=== PATIENT | male | born 1970 | race Caucasian/White ===

== ENCOUNTER → 2017-05-14 14:28 | Outpatient (REF) | payer MEDICAID, SELFPAY ==
[2017-05-14 19:01] LABS: Amphetamine/Metha Screen,Urine Negative ng/mL (<1000); Barbiturates Screen,Urine Negative ng/mL (<200); Benzodiazepines Screen,Urine Negative ng/mL (200); Cannabinoid Screen,Urine Negative ng/mL (<50); Cocaine Screen,Urine Negative ng/g (<300); Methadone Screen,Urine Negative ng/mL (<300); Opiate Screen,Urine Negative ng/mL (<300); Phencyclidine Screen,Urine Negative ng/mL (<25)
[2017-05-21 17:12] LABS: Alprazolam Negative (Cutoff=100); Benzodiazepines Positive ng/mL (Cutoff=100); Clonazepam Positive (.); Flurazepam Negative (Cutoff=100); Lorazepam Negative (Cutoff=100); Midazolam Negative (Cutoff=100); Temazepam Negative (Cutoff=100); Triazolam Negative (Cutoff=100)
[2017-05-22 09:26] LABS: Clonazepam Confirm 543 ng/mL (Cutoff=100)
== END ==
LOC: LAB 14:28
PROVIDERS: Visit Provider Physician Assistant
DX: Z79.899 Other long term (current) drug therapy (principal)
CPT/HCPCS: 80305; 80346

== ENCOUNTER → 2017-05-14 15:02 | Outpatient (CLI) | payer MEDICAID, SELFPAY | PROVIDERS: Visit Provider Physician Assistant | DX: Z79.899 Other long term (current) drug therapy (principal); F17.200 Nicotine dependence, unspecified, uncomplicated; J44.9 Chronic obstructive pulmonary disease, unspecified | CPT/HCPCS: 85025 ==

== ENCOUNTER → 2017-05-14 15:02 | Outpatient (CLI) | payer MEDICAID, SELFPAY ==
[2017-05-15 17:55] LABS: Alanine Aminotransferase 35 U/L (12-78); Albumin Level 4.1 gm/dL (3.4-5.0); Albumin/Globulin Ratio 1.3 (1.1-1.8); Alkaline Phosphatase 76 U/L (46-116); Anion Gap 13.4 mEq/L (5-15); Aspartate Amino Transferase 14 U/L (15-37); Bilirubin,Total 0.2 mg/dL (0.2-1.0); Blood Urea Nitrogen 14 mg/dL (7-18); Calcium 9.3 mg/dL (8.5-10.1); Carbon Dioxide 28 mmol/L (21.0-32.0); Chloride 107 mmol/L (98-107); Chol/HDL Ratio 4.4 (1-3.5); Cholesterol 158 mg/dL (140-200); Creatinine,Serum 0.98 mg/dL (0.70-1.30); Estimated Glomerular Filt Rate 82 ml/min (>60); GFR (African American) 100 ML/MIN (>60); Globulin 3.2 gm/dl (1.3-3.2); Glucose 98 mg/dL (74-106); HDL Cholesterol 36 mg/dL (27-67); LDL Cholesterol 83 mg/dL (0-130); Sodium 142 mmol/L (136-145); Thyroid Stimulating Hormone 0.81 uIU/ml (0.358-3.740); Total Protein,Serum 7.3 gm/dL (6.4-8.2); Triglycerides 197 mg/dL (30-200); VLDL Cholesterol 39 mg/dL (0-40)
[2017-05-15 18:34] LABS: Potassium 6.4 mmoL/L (3.5-5.1)
[2017-05-15 23:34] LABS: Basophils # 0.1 K/mm3 (0-0.2); Basophils % 0.7 % (0.1-2.0); Eosinophils # 0.8 K/mm3 (0.0-0.4); Eosinophils % 6.2 % (0.1-12.0); Hematocrit 52.9 % (42.0-52.0); Hemoglobin 16.9 g/dL (14.1-18.0); Lymphocytes # 3.3 K/mm3 (0.7-4.5); Lymphocytes % 27.9 K/mm3 (10-50); Mean Corpuscular HGB Conc 31.9 g/dL (31.8-35.4); Mean Corpuscular Hemoglobin 31.7 pg (27.0-31.2); Mean Corpuscular Volume 99.1 fl (80-94); Monocytes # 1.3 K/mm3 (0.1-1.0); Monocytes % 10.9 % (1.7-9.3); Neutrophils # 6.5 K/mm3 (1.8-7.8); Neutrophils % 54.4 % (37.0-80.0); Platelet Count 330 K/mm3 (142-424); Red Blood Count 5.34 M/mm3 (4.60-6.20)
[2017-05-17 18:26] LABS: Vitamin D 25 Hydroxy 17.2 ng/mL (30.0-100.0)
== END ==
PROVIDERS: Visit Provider Physician Assistant
DX: R06.09 Other forms of dyspnea (principal); J44.9 Chronic obstructive pulmonary disease, unspecified; Z79.899 Other long term (current) drug therapy; F17.200 Nicotine dependence, unspecified, uncomplicated
CPT/HCPCS: 80053; 80061; 82652; 84436; 84443; 85025

== ENCOUNTER → 2017-05-19 12:39 | Outpatient (CLI) | payer MEDICAID, SELFPAY ==
[2017-05-19 13:24] LABS: Potassium 4.1 mmoL/L (3.5-5.1)
== END ==
PROVIDERS: Visit Provider Physician Assistant
DX: E87.5 Hyperkalemia (principal)
CPT/HCPCS: 36415; 84132

== ENCOUNTER → 2017-05-27 09:46 | Outpatient (CLI) | payer MEDICAID, SELFPAY ==
[2017-05-27 11:12] VITALS: PULSE 73; PULSE 80
== END ==
PROVIDERS: Family Provider Emergency Medicine; PCP Physician Assistant; Visit Provider Physician Assistant
DX: R06.09 Other forms of dyspnea (principal); F17.200 Nicotine dependence, unspecified, uncomplicated
CPT/HCPCS: 94060; 94640

== ENCOUNTER 2017-05-28 07:09 | Day surgery (SDC) | payer MEDICAID, SELFPAY ==
[2017-05-28] VITALS (13 sets, daily range): BP systolic 107–127; BP diastolic 55–75; PULSE 64–79; RESP 12–18; TEMP 36.6; O2SAT 93–100; BMI 63.3
--- NOTE | 2017-05-28 | IR_ITS ---
CARDIAC CATHETERIZATION DATE OF CATHETERIZATION:05/28/2017 10:21 AM PROCEDURES: 1. Left heart catheterization 2. Left ventriculogram 3. Selective coronary angiogram INDICATION FOR TEST: 1. History of anterior myocardial infarction 2. History of coronary artery disease with proximal LAD stenting 3. Numerous risk factors for coronary disease 4. Class IV angina Informed consent was obtained prior to the procedure. COMPLICATIONS: None ESTIMATED BLOOD LOSS: Less than 10 ml. TECHNIQUE: One percent lidocaine used to anesthetize the right anterior aspect of the wrist. The right radial artery was accessed via the Seldinger technique. A 6 Turkmen sheath was placed in the right radial artery. 2.5 mg of verapamil, 800 mcg of nitroglycerin and 5000 U Heparin were given through the arterial sheath. The trap catheter was also used to perform left heart catheterization and left ventriculography. At the end of the procedure the patient was transferred to the post-op holding area in stable condition for arterial sheath removal. ANGIOGRAPHIC RESULTS: 1. The left main artery normal 2. The left anterior descending artery has a stent in the very proximal segment which is widely patent free of angiographic in-stent restenosis. The proximal and distal aspects of the stent transition very nicely into the LAD. There is a mild 10-20% proximal LAD stenosis 3. The circumflex artery nondominant normal 4. The right coronary artery dominant normal 5. The SOTRM ventriculogram reveals normal 65% 6. The left ventricular end-diastolic pressure 10 mmHg IMPRESSION: 1. Widely patent proximal LAD stent with mild nonflow limiting disease 2. Normal ejection fraction 3. Normal left ventricular end-diastolic pressure PLAN: 1. Patient is having very impressive symptoms which appear to be noncardiac in origin. 2. I recommend he be referred to gastroenterology for EGD 3. Aggressive risk factor modification 4. LDL less than 55 5. Avoidance of tobacco products
[2017-05-28 08:08] LABS: Basophils # 0.1 K/mm3 (0-0.2); Basophils % 0.7 % (0.1-2.0); Eosinophils % 8.4 % (0.1-12.0); Hematocrit 47.1 % (42.0-52.0); Hemoglobin 16.2 g/dL (14.1-18.0); Lymphocytes # 3.4 K/mm3 (0.7-4.5); Lymphocytes % 28.4 K/mm3 (10-50); Mean Corpuscular HGB Conc 34.5 g/dL (31.8-35.4); Mean Corpuscular Hemoglobin 32.2 pg (27.0-31.2); Mean Corpuscular Volume 93.3 fl (80-94); Mean Platelet Volume 7.4 fl (7.4-10.4); Monocytes # 0.8 K/mm3 (0.1-1.0); Neutrophils # 6.7 K/mm3 (1.8-7.8); Neutrophils % 55.4 % (37.0-80.0); Platelet Count 306 K/mm3 (142-424); Red Blood Count 5.05 M/mm3 (4.60-6.20); Red Cell Distribution Width 13.2 % (11.5-17.5)
[2017-05-28 08:19] LABS: Anion Gap 12.6 mEq/L (5-15); Blood Urea Nitrogen 16 mg/dL (7-18); Carbon Dioxide 24 mmol/L (21.0-32.0); Chloride 106 mmol/L (98-107); Creatinine Clearance Estimated 119 mL/min (0-300); Creatinine,Serum 0.88 mg/dL (0.70-1.30); Estimated Glomerular Filt Rate 93 ml/min (>60); GFR (African American) 113 ML/MIN (>60); Glucose 106 mg/dL (74-106); Sodium 138 mmol/L (136-145)
[2017-05-28 08:37] LABS: Potassium 4.6 mmoL/L (3.5-5.1)
== END 2017-05-28 14:00 | disposition home or self-care (01) ==
LOC: CATHLAB 07:11
PROVIDERS: Family Provider Emergency Medicine; PCP Physician Assistant; Visit Provider Internal Medicine
DX: I25.119 Atherosclerotic heart disease of native coronary artery with unspecified angina pectoris (principal); I25.2 Old myocardial infarction; Z95.5 Presence of coronary angioplasty implant and graft; I10 Essential (primary) hypertension; Z72.0 Tobacco use; E55.9 Vitamin D deficiency, unspecified; R06.02 Shortness of breath
CPT/HCPCS: 36415; 80048; 85025; 93458; 99152; C1725; C1769; J1644; Q9967

== ENCOUNTER → 2017-05-30 13:32 | Outpatient (CLI) | payer MEDICAID, SELFPAY ==
--- NOTE | 2017-05-30 13:48 | CA_ITS ---
PROCEDURE: 2-D M-mode and color Doppler study INDICATIONS FOR THE TEST: Chest pain+ COPD+ Heart Murmur Tobacco Smoking Palpitations+ Fatigue Syncope Edema Hypertension+Diabetes Mellitus Rheumatic Fever SOB+LINK Obesity Hyperlipidemia+ Family History HD Additional History CAD, [place] 2009 PATIENT INFORMATION HEIGHT: 73 WEIGHT: 218 GENDER: Male B/P: 154/89 2-D/M-MODE INTERPRETATION: 2-D MEASUREMENTS OBSERVED VALUES IN CMS Right Ventricular Dimension (RVDd) 2.0 Interventricular Septum (Thickness)(IVsd) 0.7 Left Ventricular Internal Dimensions(LVIDd) 5.5 Left Ventricular Posterior Wall (Thickness)(LVPWd) 0.9 Aortic Root 3.4 Aortic Cusp Separation 2.5 Left Atrial Dimensions (LAD) 3.8 2D 1. Left atrium is qualitatively mildly enlarged, left ventricle is normal size, there is mild qualitative concentric left ventricular hypertrophy, visually estimated ejection fraction 55% with no obvious regional wall motion abnormality. 2. The right atrium and right ventricle are normal size and contractility. 3. The aortic valve is minimally thickened and fibrosed. 4. The mitral and tricuspid valvular grossly normal. 5. The pulmonic valve is poorly visualized. 6. No significant pericardial effusion noted. DOPPLER INTERROGATION: Doppler interrogation of the aortic, mitral and tricuspid valvular presence of mild mitral and tricuspid regurgitation, tricuspid and enteric velocity insufficient for calculation of the right ventricular systolic pressure, grade 1 diastolic dysfunction seen without tissue Doppler evidence of raised left atrial pressure. CONCLUSION: 1. Qualitatively mildly enlarged left atrium, normal left ventricular size, mild qualitative concentric left ventricular hypertrophy, visually estimated ejection fraction of 55% with no obvious regional wall motion abnormality, grade 1 diastolic without tissue Doppler evidence of raised left atrial pressure. 2. Mild mitral and tricuspid regurgitation 3. No significant pericardial effusion noted.
== END ==
PROVIDERS: Family Provider Emergency Medicine; PCP Physician Assistant; Visit Provider Internal Medicine
DX: I48.91 Unspecified atrial fibrillation (principal); I25.10 Atherosclerotic heart disease of native coronary artery without angina pectoris
CPT/HCPCS: 93306

== ENCOUNTER → 2017-11-28 13:31 | Outpatient (CLI) | payer MEDICAID, SELFPAY ==
[2017-11-28 18:20] LABS: Basophils # 0.1 K/mm3 (0-0.2); Basophils % 0.6 % (0.1-2.0); Eosinophils % 8.3 % (0.1-12.0); Hematocrit 54.5 % (42.0-52.0); Lymphocytes # 3.4 K/mm3 (0.7-4.5); Lymphocytes % 28.9 K/mm3 (10-50); Mean Corpuscular Hemoglobin 31.8 pg (27.0-31.2); Mean Corpuscular Volume 96.3 fl (80-94); Mean Platelet Volume 7.8 fl (7.4-10.4); Monocytes # 0.8 K/mm3 (0.1-1.0); Monocytes % 6.3 % (1.7-9.3); Neutrophils # 6.7 K/mm3 (1.8-7.8); Neutrophils % 55.9 % (37.0-80.0); Platelet Count 331 K/mm3 (142-424); Red Blood Count 5.65 M/mm3 (4.60-6.20); Red Cell Distribution Width 13.1 % (11.5-17.5); White Blood Count 11.9 K/mm3 (4.8-10.8)
[2017-11-28 18:34] LABS: Alanine Aminotransferase 58 U/L (12-78); Albumin Level 4.3 gm/dL (3.4-5.0); Albumin/Globulin Ratio 1.2 (1.1-1.8); Alkaline Phosphatase 88 U/L (46-116); Anion Gap 15.5 mEq/L (5-15); Aspartate Amino Transferase 23 U/L (15-37); Bilirubin,Total 0.3 mg/dL (0.2-1.0); Blood Urea Nitrogen 18 mg/dL (7-18); Calcium 9.7 mg/dL (8.5-10.1); Carbon Dioxide 26 mmol/L (21.0-32.0); Chloride 105 mmol/L (98-107); Chol/HDL Ratio 3.8 (1-3.5); Cholesterol 156 mg/dL (140-200); Creatinine,Serum 0.93 mg/dL (0.70-1.30); Estimated Glomerular Filt Rate 87 ml/min (>60); GFR (African American) 106 ML/MIN (>60); Globulin 3.5 gm/dl (1.3-3.2); Glucose 94 mg/dL (74-106); HDL Cholesterol 41 mg/dL (27-67); LDL Cholesterol 95 mg/dL (0-130); Potassium 4.5 mmoL/L (3.5-5.1); Sodium 142 mmol/L (136-145); T4 (Thyroxine) 10.2 ug/dl (4.7-13.3); Thyroid Stimulating Hormone 0.77 uIU/ml (0.358-3.740); Total Protein,Serum 7.8 gm/dL (6.4-8.2); Triglycerides 100 mg/dL (30-200); VLDL Cholesterol 20 mg/dL (0-40)
[2017-12-02 06:11] LABS: Vitamin D 25 Hydroxy 46.9 ng/mL (30.0-100.0)
== END ==
PROVIDERS: Visit Provider Nurse Practitioner Family
DX: R53.83 Other fatigue (principal); R61 Generalized hyperhidrosis
CPT/HCPCS: 80053; 80061; 82652; 84436; 84443; 85025

== ENCOUNTER → 2018-04-01 18:10 | Outpatient (CLI) | payer MEDICAID, SELFPAY ==
[2018-04-01 20:22] LABS: Amphetamine/Metha Screen,Urine Negative ng/mL (<1000); Barbiturates Screen,Urine Negative ng/mL (<200); Benzodiazepines Screen,Urine Negative ng/mL (<200); Cannabinoid Screen,Urine Negative ng/mL (<50); Cocaine Screen,Urine Negative ng/mL (<300); Methadone Screen,Urine Negative ng/mL (<300); Opiate Screen,Urine Negative ng/mL (<300); Phencyclidine Screen,Urine Negative ng/mL (<25)
[2018-04-06 13:10] LABS: Alprazolam Negative (Cutoff=100); Benzodiazepines Positive ng/mL (Cutoff=100); Clonazepam Positive (.); Flurazepam Negative (Cutoff=100); Lorazepam Negative (Cutoff=100); Midazolam Negative (Cutoff=100); Temazepam Negative (Cutoff=100); Triazolam Negative (Cutoff=100)
[2018-04-07 08:06] LABS: Clonazepam Confirm 213 ng/mL (Cutoff=100)
== END ==
PROVIDERS: Visit Provider Physician Assistant
DX: Z79.899 Other long term (current) drug therapy (principal)
CPT/HCPCS: 80305; 80346

== ENCOUNTER → 2018-10-02 13:38 | Outpatient (CLI) | payer MEDICAID, SELFPAY ==
[2018-10-02 13:53] LABS: Basophils # 0.1 K/mm3 (0-0.2); Basophils % 0.8 % (0.1-2.0); Eosinophils # 1.4 K/mm3 (0.0-0.4); Eosinophils % 12.3 % (0.1-12.0); Hematocrit 49.5 % (42.0-52.0); Hemoglobin 17.2 g/dL (14.1-18.0); Lymphocytes % 34.9 % (10-50); Mean Corpuscular HGB Conc 34.7 g/dL (31.8-35.4); Mean Corpuscular Hemoglobin 32.8 pg (27.0-31.2); Mean Corpuscular Volume 94.6 fl (80-94); Mean Platelet Volume 7.8 fl (7.4-10.4); Monocytes # 0.8 K/mm3 (0.1-1.0); Neutrophils # 5.1 K/mm3 (1.8-7.8); Platelet Count 365 K/mm3 (142-424); Red Blood Count 5.23 M/mm3 (4.60-6.20); Red Cell Distribution Width 13.3 % (11.5-17.5); White Blood Count 11.3 K/mm3 (4.8-10.8)
[2018-10-02 16:38] LABS: Amphetamine/Metha Screen,Urine Negative ng/mL (<1000); Barbiturates Screen,Urine Negative ng/mL (<200); Benzodiazepines Screen,Urine Negative ng/mL (<200); Cannabinoid Screen,Urine Negative ng/mL (<50); Cocaine Screen,Urine Negative ng/mL (<300); Methadone Screen,Urine Negative ng/mL (<300); Opiate Screen,Urine Negative ng/mL (<300); Phencyclidine Screen,Urine Negative ng/mL (<25)
[2018-10-02 16:53] LABS: Alanine Aminotransferase 40 U/L (12-78); Albumin Level 4.1 gm/dL (3.4-5.0); Albumin/Globulin Ratio 1.2 (1.1-1.8); Alkaline Phosphatase 81 U/L (46-116); Anion Gap 15.3 mEq/L (5-15); Aspartate Amino Transferase 15 U/L (15-37); Bilirubin,Total 0.4 mg/dL (0.2-1.0); Blood Urea Nitrogen 26 mg/dL (7-18); Calcium 9.9 mg/dL (8.5-10.1); Carbon Dioxide 26 mmol/L (21.0-32.0); Chloride 105 mmol/L (98-107); Chol/HDL Ratio 4.3 (1-3.5); Cholesterol 141 mg/dL (140-200); Creatinine,Serum 1.08 mg/dL (0.70-1.30); Estimated Glomerular Filt Rate 73 ml/min (>60); GFR (African American) 89 ML/MIN (>60); Globulin 3.3 gm/dl (1.3-3.2); Glucose 103 mg/dL (74-106); HDL Cholesterol 33 mg/dL (27-67); LDL Cholesterol 76 mg/dL (0-130); Potassium 4.3 mmoL/L (3.5-5.1); Sodium 142 mmol/L (136-145); T4 (Thyroxine) 9.7 ug/dl (4.7-13.3); Thyroid Stimulating Hormone 1.05 uIU/ml (0.358-3.740); Total Protein,Serum 7.4 gm/dL (6.4-8.2); Triglycerides 159 mg/dL (30-200); VLDL Cholesterol 32 mg/dL (0-40)
[2018-10-03 18:47] LABS: Vitamin D 25 Hydroxy 25.3 ng/mL (30.0-100.0)
== END ==
PROVIDERS: Visit Provider Nurse Practitioner Family
DX: R53.83 Other fatigue (principal); Z79.899 Other long term (current) drug therapy; E78.5 Hyperlipidemia, unspecified; I10 Essential (primary) hypertension; E55.9 Vitamin D deficiency, unspecified
CPT/HCPCS: 80053; 80061; 80305; 82652; 84436; 84443; 85025

== ENCOUNTER → 2018-10-09 13:20 | Outpatient (CLI) | payer MEDICAID, SELFPAY ==
[2018-10-09 14:30] LABS: Anion Gap 18.1 mEq/L (5-15); Blood Urea Nitrogen 17 mg/dL (7-18); Calcium 9.6 mg/dL (8.5-10.1); Carbon Dioxide 22 mmol/L (21.0-32.0); Chloride 106 mmol/L (98-107); Creatinine,Serum 1.02 mg/dL (0.70-1.30); Estimated Glomerular Filt Rate 78 ml/min (>60); GFR (African American) 95 ML/MIN (>60); Glucose 103 mg/dL (74-106); Potassium 4.1 mmoL/L (3.5-5.1); Sodium 142 mmol/L (136-145)
== END ==
PROVIDERS: Visit Provider Nurse Practitioner Family
DX: R79.9 Abnormal finding of blood chemistry, unspecified (principal)
CPT/HCPCS: 80048

== ENCOUNTER → 2019-04-05 13:28 | Outpatient (CLI) | payer MEDICAID, SELFPAY ==
[2019-04-05 13:38] LABS: Basophils # 0.1 K/mm3 (0-0.2); Eosinophils # 1.4 K/mm3 (0.0-0.4); Eosinophils % 11.8 % (0.1-12.0); Hematocrit 50.7 % (42.0-52.0); Hemoglobin 16.6 g/dL (14.1-18.0); Lymphocytes % 33.3 % (10-50); Mean Corpuscular HGB Conc 32.8 g/dL (31.8-35.4); Mean Corpuscular Hemoglobin 31.8 pg (27.0-31.2); Mean Corpuscular Volume 97.1 fl (80-94); Mean Platelet Volume 8.5 fl (7.4-10.4); Monocytes # 0.7 K/mm3 (0.1-1.0); Monocytes % 5.8 % (1.7-9.3); Neutrophils # 5.7 K/mm3 (1.8-7.8); Platelet Count 326 K/mm3 (142-424); Red Blood Count 5.22 M/mm3 (4.60-6.20); White Blood Count 11.9 K/mm3 (4.8-10.8)
[2019-04-05 14:44] LABS: Alanine Aminotransferase 32 U/L (12-78); Albumin Level 4.2 gm/dL (3.4-5.0); Albumin/Globulin Ratio 1.6 (1.1-1.8); Alkaline Phosphatase 83 U/L (46-116); Aspartate Amino Transferase 21 U/L (15-37); Bilirubin,Total 0.3 mg/dL (0.2-1.0); Blood Urea Nitrogen 16 mg/dL (7-18); Calcium 9.1 mg/dL (8.5-10.1); Carbon Dioxide 22 mmol/L (21.0-32.0); Chloride 105 mmol/L (98-107); Chol/HDL Ratio 4.5 (1-3.5); Cholesterol 126 mg/dL (140-200); Creatinine,Serum 1.01 mg/dL (0.70-1.30); Estimated Glomerular Filt Rate 79 ml/min (>60); GFR (African American) 95 ML/MIN (>60); Globulin 2.7 gm/dl (1.3-3.2); Glucose 114 mg/dL (74-106); HDL Cholesterol 28 mg/dL (27-67); LDL Cholesterol 44 mg/dL (0-130); Sodium 141 mmol/L (136-145); T4 (Thyroxine) 10.1 ug/dl (4.7-13.3); Thyroid Stimulating Hormone 0.95 uIU/ml (0.358-3.740); Total Protein,Serum 6.9 gm/dL (6.4-8.2); Triglycerides 268 mg/dL (30-200); VLDL Cholesterol 54 mg/dL (0-40)
[2019-04-06 14:01] LABS: Testosterone,Total 325 ng/dL (264-916); Vitamin D 25 Hydroxy 59.7 ng/mL (30.0-100.0)
== END ==
PROVIDERS: Visit Provider Physician Assistant
DX: I10 Essential (primary) hypertension (principal); E78.5 Hyperlipidemia, unspecified; F41.9 Anxiety disorder, unspecified; E55.9 Vitamin D deficiency, unspecified
CPT/HCPCS: 80053; 80061; 82652; 84403; 84436; 84443; 85025

== ENCOUNTER → 2019-04-27 13:02 | Outpatient (CLI) | payer MEDICAID, SELFPAY ==
--- NOTE | 2019-04-27 13:03 | US_ITS ---
APPROVED REPORT Exam Type: Lower Extremity Segmental Pressures Olive Brine Tester: Niesha Nayak RDCS Indications Claudication: Trauma Cold Sensitivity Pressures/Indices Right Indices Left Indices Brachial 119.00 mmHg Brachial 129.00 mmHg Low Thigh 124.00 mmHg 0.96 Low Thigh 123.00 mmHg 0.95 Calf 131.00 mmHg 1.02 Calf 118.00 mmHg 0.91 Ankle(PT) 140.00 mmHg 1.09 Ankle(PT) 134.00 mmHg 1.04 Ankle(DP) 140.00 mmHg 1.09 Ankle(DP) 128.00 mmHg 0.99 Digit 100.00 mmHg 0.78 Digit 104.00 mmHg 0.81 Findings R BRUNA 1.1 L BRUNA 1.0 R TBI .8 L TBI .8 NORMAL PULSES AND WAVEFORMS Conclusion Normal appearing resting noninvasive lower extremity arterial study. Electronically signed by : Hosea Reid MD 04/28/2019 18:10:26
--- NOTE | 2019-04-27 13:07 | XR_ITS ---
PROCEDURE: XR TIBIA FIBULA LT 2V CLINICAL INDICATION: left leg pain Left leg pain COMPARISON: No exams were available for comparison FINDINGS: No fracture, dislocation, lytic change, or blastic change evident. No significant degenerative change IMPRESSION: No acute findings. Dictated by: Hosea Reid MD 04/27/2019 15:11 Electronically signed by Hosea Reid MD in [place] 04/27/2019 15:11
== END ==
PROVIDERS: PCP Physician Assistant; Visit Provider Physician Assistant
DX: M79.605 Pain in left leg (principal)
CPT/HCPCS: 73590; 93923

== ENCOUNTER → 2019-07-12 16:40 | Outpatient (CLI) | payer MEDICAID, SELFPAY ==
[2019-07-12 17:29] LABS: Chloride 109 mmol/L (98-107); Potassium 4.6 mmoL/L (3.5-5.1); Sodium 138 mmol/L (136-145)
[2019-07-12 17:31] LABS: Basophils # 0.1 K/mm3 (0-0.2); Basophils % 1.2 % (0.1-2.0); Blood Urea Nitrogen 11 mg/dl (9-20); Eosinophils # 1.3 K/mm3 (0.0-0.4); Eosinophils % 11.5 % (0.1-12.0); Estimated Glomerular Filt Rate 103 ml/min (>60); GFR (African American) 125 ML/MIN (>60); Hematocrit 50.1 % (42.0-52.0); Hemoglobin 16.7 g/dL (14.1-18.0); Lymphocytes # 2.9 K/mm3 (0.7-4.5); Lymphocytes % 26.6 % (10-50); Mean Corpuscular HGB Conc 33.3 g/dL (31.8-35.4); Mean Corpuscular Hemoglobin 31.4 pg (27.0-31.2); Mean Corpuscular Volume 94.2 fl (80-94); Monocytes # 0.7 K/mm3 (0.1-1.0); Monocytes % 6.5 % (1.7-9.3); Neutrophils % 54.2 % (37.0-80.0); Platelet Count 343 K/mm3 (142-424); Red Blood Count 5.32 M/mm3 (4.60-6.20); Red Cell Distribution Width 13.9 % (11.5-17.5)
[2019-07-12 17:32] LABS: Alanine Aminotransferase 30 U/L (12-78); Albumin Level 4.6 g/dl (3.5-5.0); Albumin/Globulin Ratio 1.7 (1.1-1.8); Alkaline Phosphatase 68 U/L (38-126); Anion Gap 10.6 mEq/L (5-15); Aspartate Amino Transferase 30 U/L (17-59); Bilirubin,Total 0.5 mg/dl (0.2-1.3); Carbon Dioxide 23 mmol/L (22.0-30.0); Cholesterol 225 mg/dl (140-200); Globulin 2.7 g/dL (1.3-3.2); Glucose 101 mg/dl (74-100); Total Protein,Serum 7.3 g/dl (6.3-8.2); Triglycerides 196 mg/dl (30-150); VLDL Cholesterol 39 mg/dL (0-40)
[2019-07-12 17:33] LABS: Chol/HDL Ratio 5.6 (1-3.5); HDL Cholesterol 40 mg/dl (40-60)
[2019-07-12 17:44] LABS: Direct LDL Cholesterol 162.47 mg/dL (100-129)
[2019-07-12 17:49] LABS: T4 (Thyroxine) 10.6 ug/dl (5.53-11.0)
[2019-07-12 18:03] LABS: Thyroid Stimulating Hormone 0.52 uIU/mL (0.465-4.68)
[2019-07-15 11:13] LABS: Vitamin D 25 Hydroxy 72.9 ng/mL (30.0-100.0)
== END ==
PROVIDERS: Visit Provider Physician Assistant
DX: I10 Essential (primary) hypertension (principal); E78.5 Hyperlipidemia, unspecified; E55.9 Vitamin D deficiency, unspecified
CPT/HCPCS: 80053; 80061; 82652; 84436; 84443; 85025

== ENCOUNTER → 2019-10-18 15:25 | Outpatient (CLI) | payer MEDICAID, SELFPAY | PROVIDERS: PCP Physician Assistant; Visit Provider Physician Assistant | DX: R00.1 Bradycardia, unspecified (principal) | CPT/HCPCS: 93225; 93226 ==

== ENCOUNTER 2019-10-20 20:11 | Observation (INO) | payer MEDICAID, SELFPAY ==
[2019-10-20] VITALS (7 sets, daily range): BP systolic 114–150; BP diastolic 70–76; PULSE 53–68; RESP 12–20; TEMP 37.3; O2SAT 95–98; BMI 26.4
--- NOTE | 2019-10-20 20:01 | ECG_ITS ---
APPROVED REPORT Exam: Resting ECG HR:68 bpm ECG Measurements Heart Rate 68 AXES IA 184 P 59 QRSd 98 QRS 56 QT 396 T 64 QTc 421 <Conclusion> Normal sinus rhythm Normal ECG Electronically signed by : Jones Fraga, 10/22/2019 07:13:36
--- NOTE | 2019-10-20 20:21 | XR_ITS ---
PROCEDURE: XR CHEST 2V CLINICAL HISTORY: chest pain w/ SOA COMPARISON: CR CXR CHEST(2 VIEWS-NOT PORTABLE) from 07/31/2014 CR CXR CHEST(2 VIEWS-NOT PORTABLE) from 10/25/2015 FINDINGS: The cardiomediastinal silhouette and pulmonary vascularity are within normal limits. The lungs are clear without infiltrates, suspicious nodules, or pleural effusions. No acute bony abnormalities. IMPRESSION: No acute findings. Dictated by: Hosea Reid MD 10/20/2019 21:46 Hosea Reid MD in [place] 10/20/2019 21:46
[2019-10-20 20:32] LABS: Basophils # 0.2 K/mm3 (0-0.2); Basophils % 1.2 % (0.1-2.0); Eosinophils # 1.8 K/mm3 (0.0-0.4); Eosinophils % 12.8 % (0.1-12.0); Hematocrit 49.4 % (42.0-52.0); Hemoglobin 16.9 g/dL (14.1-18.0); Lymphocytes # 4.4 K/mm3 (0.7-4.5); Lymphocytes % 32.2 % (10-50); Mean Corpuscular HGB Conc 34.1 g/dL (31.8-35.4); Mean Corpuscular Hemoglobin 33.1 pg (27.0-31.2); Mean Corpuscular Volume 96.9 fl (80-94); Mean Platelet Volume 7.6 fl (7.4-10.4); Monocytes # 0.7 K/mm3 (0.1-1.0); Monocytes % 5.1 % (1.7-9.3); Neutrophils # 6.7 K/mm3 (1.8-7.8); Neutrophils % 48.6 % (37.0-80.0); Platelet Count 309 K/mm3 (142-424); Red Cell Distribution Width 13.5 % (11.5-17.5); White Blood Count 13.7 K/mm3 (4.8-10.8)
[2019-10-20 20:33] LABS: Chloride 107 mmol/L (98-107); Potassium 4.1 mmoL/L (3.5-5.1); Sodium 142 mmol/L (136-145)
--- NOTE | 2019-10-20 20:33 | HMH.EDCP ---
ED Disposition Clinical Impression: Unstable angina pectoris, Pre-syncope Disposition: Admitted as Observation Condition on Discharge: Good Referrals: Dick Higuera MD [Primary Care Provider] - - Critical Care Critical Care Time: No Attestation: On 10/20/19, the high probability of a clinically significant, sudden or life threatening deterioration of the following system(s) required my full and direct attention, intervention and personal management. The time I documented below is in addition to time spent performing reported procedures but includes the following listed in this critical care notation. Medical Decision Making - Medical Records Medical records reviewed: Yes: I reviewed the patient's medical records. - Collin Inquiry Pt receiving controlled substance: No Vital Signs: 10/20/19 20:12 10/20/19 20:31 10/20/19 20:42 Temperature 99.2 F Temperature Source Oral Pulse Rate [Left] 68 66 Respiratory Rate 14 20 Blood Pressure [Right Arm] 150/76 H 123/71 Blood Pressure Mean [Right Arm] 100 88 Blood Pressure Source [Right Arm] Automatic Cuff Automatic Cuff Blood Pressure Position [Right Arm] Supine 02 Sat by Pulse Oximetry 98 95 Oxygen Delivery Method Room Air Room Air - Lab Data Lab results reviewed: Yes: I reviewed the patient's lab results. Lab Results 10/20/19 20:12: WBC 13.7 H, RBC 5.10, Hgb 16.9, Hct 49.4, MCV 96.9 H, MCH 33.1 H, MCHC 34.1, RDW 13.5, Plt Count 309, MPV 7.6, Neut % (Auto) 48.6, Lymph % (Auto) 32.2, Rolette % (Auto) 5.1, Eos % (Auto) 12.8 H, Baso % (Auto) 1.2, Neut # (Auto) 6.7, Lymph # (Auto) 4.4, Rolette # (Auto) 0.7, Eos # (Auto) 1.8 H, Baso # (Auto) 0.2 10/20/19 20:12: Sodium 142, Potassium 4.1, Chloride 107, Carbon Dioxide 26, Anion Gap 13.1, BUN 14, Creatinine 0.80, Estimated Creat Clear 145, Estimated GFR 103, Est GFR ( Amer) 125, Glucose 118 H, Calcium 9.9 Result diagrams: 10/20/19 20:12 10/20/19 20:12 Orders (Tests/Meds): ED MEDICATIONS Generic Name Dose Route Start Last Admin Trade Name Freq PRN Reason Stop Dose Admin Sodium Chloride 1,000 mls @ 999 mls/hr 10/20/19 20:30 10/20/19 20:36 Sod Chlor 0.9% 1000ml Bag IV 10/20/19 21:30 999 mls/hr .Q1H1M ALEXIA Administration Discontinued Medications Generic Name Dose Route Start Last Admin Trade Name Freq PRN Reason Stop Dose Admin Aspirin 324 mg 10/20/19 20:21 10/20/19 20:35 Aspirin 81mg Chewable Tablet PO 10/20/19 20:22 324 mg ONCE ONE Administration Nitroglycerin 0.4 mg 10/20/19 20:21 10/20/19 20:35 Nitrostat 0.4mg Sl Tablet SL 10/20/19 20:22 1 tab ONCE ONE Administration Nitroglycerin 1 gm 10/20/19 20:44 Nitroglycerin 1 Inch Oint Udp TD 10/20/19 20:45 ONCE ONE ORDERS Category Date Time Status XR chest 2V Stat Exams 10/20/19 20:21 Taken Basic Metabolic Panel Stat Lab 10/20/19 20:12 Results COVID [Coronavirus 19 Swab (OUTPT)] Routine Lab 10/20/19 20:50 Ordered Troponin I Q3H Lab 10/20/19 23:30 Ordered Troponin I Q3H Lab 10/21/19 02:30 Ordered Troponin I Stat Lab 10/20/19 20:12 Results - ECG Data Tracing #1 Normal Sinus Rhythm: Yes Ischemic changes: non-specific ST-T wave changes - Physician Consults Physician Consulted: stefania Reason -: Pt condition Chest Pain HPI - General Chief Complaint: Chest Pain Stated Complaint: Chest Pain Time Seen by Provider: 10/20/19 20:20 Mode of Arrival: Ambulatory Source of Information: Patient, Spouse, Medical Record Limitations: No Limitations Description of Symptoms (Recalled from ER Triage Doc. by RN): Pt just had a 72 hour Haulter monitor and seen Dr Ramires this AM for same problems, started having Chest Pain and SOA again starting today around noon, pt called Dr Ramires and he advised him to come to ER. - History of Present Illness HPI narrative: pt with episodes of chest pain tonight and this afternoon - he has hx of near syncope with abn holter also - chest pain
[2019-10-20 20:36] LABS: Anion Gap 13.1 mEq/L (5-15); Blood Urea Nitrogen 14 mg/dl (9-20); Calcium 9.9 mg/dl (8.4-10.2); Carbon Dioxide 26 mmol/L (22.0-30.0); Creatinine Clearance Estimated 145 mL/min (50-200); Estimated Glomerular Filt Rate 103 ml/min (>60); GFR (African American) 125 ML/MIN (>60); Glucose 118 mg/dl (74-100)
--- NOTE | 2019-10-20 20:43 | PC.NURSE ---
Pt states his pain has decreased to a 4 after 1 nitro S.L.
--- NOTE | 2019-10-20 20:50 | PC.NURSE ---
Dr Higuera consulted with Dr Ramires for admission
[2019-10-20 20:54] LABS: Troponin I < 0.01 ng/ml (0.00-0.034)
--- NOTE | 2019-10-20 22:55 | PC.NURSE ---
called lab to check on pt covid results. lab stated 20 more minutes
[2019-10-20 23:52] LABS: Troponin I < 0.01 ng/ml (0.00-0.034)
[2019-10-21] VITALS (27 sets, daily range): BP systolic 112–145; BP diastolic 53–81; PULSE 44–80; RESP 10–18; TEMP 36.3–37.3; O2SAT 93–100; BMI 25.9
--- NOTE | 2019-10-21 | IR_ITS ---
APPROVED REPORT Patient Location: Inpatient PROCEDURES Left heart catheterization Left ventriculogram Selective coronary angiogram INDICATION Unstable angina, Known coronary artery disease, Intermittent asystolic pauses Informed consent was obtained prior to the procedure. COMPLICATIONS none Estimated Blood Loss: less than 10 mls TECHNIQUE One percent lidocaine used to anesthetize the right anterior aspect of the wrist. The right radial artery was accessed via the Seldinger technique. A 6 Taiwanese sheath was placed in the right radial artery. 2.5 mg of verapamil, 800 mcg of nitroglycerin, 1mg Lidocaine and 5000 U Heparin were given through the arterial sheath. The trap catheter was also used to perform left heart catheterization, left ventriculogram and selective coronary angiogram. At the end of the procedure the sheath was removed good hemostasis was achieved using Traclet band, patient was transferred to the postop holding area in stable condition. ANGIOGRAPHIC RESULTS The left main artery Normal The left anterior descending artery Has a stent in the proximal segment which is widely patent free of in-stent restenosis with excellent proximal distal transitioning. The remaining vessel was large caliber and normal The circumflex artery Nondominant large and normal The right coronary artery Is a dominant vessel and has proximal smooth 10% stenosis The STORM ventriculogram reveals Normal 65% The left ventricular end-diastolic pressure 10 mmHg IMPRESSION Widely patent proximal LAD stent with remaining [id number] disease as described above Normal ejection fraction Normal left ventricular end-diastolic pressure PLAN 1. Proceed with pacemaker placement tomorrow morning for symptomatic bradycardia accompanied by syncope Electronically signed by : Sahil Ramires, 10/21/2019 12:27:57
--- NOTE | 2019-10-21 00:22 | PC.NURSE ---
Addendum entered by Swati Ferguson CNA 10/21/19 03:07: CORRECTION - ARRIVAL TIME TO THE FLOOR WAS 0020 Original Note: PT ARRIVED TO THE FLOOR VIA W/C FROM ER AT 0220
[2019-10-21 02:41] LABS: Troponin I < 0.01 ng/ml (0.00-0.034)
--- NOTE | 2019-10-21 04:27 | PC.NURSE ---
A&OX4. PT TOLERATING RA WELL THIS SHIFT. PT HAS HAD NO C/O CHEST PAIN OR SOA SINCE ARRIVAL TO FLOOR. PT HAS RESTED IN BED MAJORITY OF SHIFT. PT TOLERATING NPO DIET WELL. PT AT BEDSIDE. PT BEING MONITORED ON TELE, NSR THUS FAR. NO C/O THUS FAR, VSS WILL CONTINUE TO MONITOR.
[2019-10-21 06:15] LABS: Basophils # 0.1 K/mm3 (0-0.2); Eosinophils # 1.7 K/mm3 (0.0-0.4); Eosinophils % 13.8 % (0.1-12.0); Hematocrit 44.2 % (42.0-52.0); Lymphocytes # 4.5 K/mm3 (0.7-4.5); Lymphocytes % 36.4 % (10-50); Mean Corpuscular HGB Conc 33.8 g/dL (31.8-35.4); Mean Corpuscular Hemoglobin 33.7 pg (27.0-31.2); Mean Corpuscular Volume 99.9 fl (80-94); Mean Platelet Volume 7.6 fl (7.4-10.4); Monocytes # 0.7 K/mm3 (0.1-1.0); Monocytes % 5.6 % (1.7-9.3); Neutrophils # 5.3 K/mm3 (1.8-7.8); Neutrophils % 43.3 % (37.0-80.0); Platelet Count 271 K/mm3 (142-424); Red Blood Count 4.42 M/mm3 (4.60-6.20); Red Cell Distribution Width 13.5 % (11.5-17.5); White Blood Count 12.3 K/mm3 (4.8-10.8)
[2019-10-21 06:23] LABS: Chloride 110 mmol/L (98-107); Potassium 4.5 mmoL/L (3.5-5.1); Sodium 142 mmol/L (136-145)
[2019-10-21 06:26] LABS: Blood Urea Nitrogen 15 mg/dl (9-20); Creatinine Clearance Estimated 143 mL/min (50-200); Estimated Glomerular Filt Rate 103 ml/min (>60); GFR (African American) 125 ML/MIN (>60)
[2019-10-21 06:27] LABS: Anion Gap 9.5 mEq/L (5-15); Carbon Dioxide 27 mmol/L (22.0-30.0); Glucose 103 mg/dl (74-100)
[2019-10-21 06:30] LABS: Hemoglobin 14.9 g/dL (14.1-18.0)
--- NOTE | 2019-10-21 06:50 | PC.NURSE ---
Araceli HI NOTIFIED OF CONSULT.
--- NOTE | 2019-10-21 07:39 | P.CONPHA_ITS ---
[facility] Pharmacy VTE Monitoring - Patient Demographics Admission date: 10/20/19 Report Date: 10/21/19 Time: 07:39 Allergies/Adverse Reactions: Patient Allergies No Known Allergies Allergy (Verified 10/21/19 00:27) Height: 1.85 m Weight: 89.358 kg Patient Problems: Current Active Problems (Last Updated 05/18/17 @ 13:01 by YOUNG Bird) Unstable angina pectoris (Acute) Near syncope (Acute) - VTE Risk Labs: VTE Related Lab Results Hgb 14.9 g/dL (14.1-18.0) D 10/21/19 06:03 Hct 44.2 % (42.0-52.0) 10/21/19 06:03 Plt Count 271 K/mm3 (142-424) 10/21/19 06:03 BUN 15 mg/dl (9-20) 10/21/19 06:03 Creatinine 0.80 mg/dl (0.66-1.25) 10/21/19 06:03 Estimated Creat Clear 143 mL/min (50-200) 10/21/19 06:03 Was VTE Risk Assessment Performed: Yes VTE Score: 5 VTE Risk Level: Low Risk Clinical Trial Participant: No - Prophylaxis VTE Prophylaxis Ordered?: Yes Types of VTE Prophylaxis: TEDS Knee High
--- NOTE | 2019-10-21 07:45 | HMH.PHAINT ---
HOME MEDICATION RECONCILIATION COMPLETED USING LIST FROM CARDIOLOGY OFFICE AND HOME PHARMACY
--- NOTE | 2019-10-21 08:00 | CA_ITS ---
APPROVED REPORT EXAM: Comprehensive 2D, Doppler, and color-flow Echocardiogram Extruder: Ariadna Chan CRT Ht: 6 ft 1 in Wt: 200lbs BSA: 2.15 BP: 123/71 mmHg Indications: ANGINA,PRESYNCOPE,CAD,STENT,HTN,HLD,GERD,HX WV,COPD 2D Dimensions LVOT 2.10 cm (M/F) 1.5-2.5 M-Mode Dimensions RVDd 2.46 cm (0.9-2.6) LVDd 5.74 cm (3.5-5.7) LVDs 3.27 cm (3.5-5.7) IVSd 1.40 cm (0.6-1.1) PWd 0.68 cm (0.6-1.1) EF (Teich) 73.40% FS 43.00% EDV (Teich) 162.60 mL ESV (Teich) 43.20 mL LV Diastology E/A Ratio 1.39 Mitral Valve MV A Velocity 61.00 (40-130 cm/s) Left Ventricle Left atrium is normal size, left ventricle is normal size, there is no concentric left ventricular hypertrophy, visually estimated ejection fraction 55% with no regional wall motion abnormality, endocardial surfaces are poorly visualized. Diastolic parameters are within normal range. Right Ventricle Right atrium and right ventricular normal size and contractility. Aortic Valve Aortic valve is minimally thickened and fibrosed, there is no aortic stenosis or aortic insufficiency. Mitral Valve Mitral valve is grossly normal, there is mild mitral regurgitation. Tricuspid Valve Tricuspid valve grossly normal, there is mild tricuspid regurgitation, tricuspid regurgitation jet velocity is inadequate for calculation of the right ventricular systolic pressure. Pulmonic Valve Pulmonic valve is poorly visualized. Great Vessels Aortic root is normal size. Pericardium No significant pericardial effusion noted. Conclusion 1. Normal left ventricular size, preserved left ventricular systolic function, visually estimated ejection fraction 55% with no regional wall motion abnormality, endocardial surfaces are poorly visualized, diastolic parameters are within normal range. 2. Mild mitral and tricuspid regurgitation. 3. No significant pericardial effusion noted. Electronically signed by : Geovany Scanlon, 10/21/2019 11:54:31
--- NOTE | 2019-10-21 08:22 | HMH.CNCARD ---
History of Present Illness Consult date: 10/21/19 Requesting physician: Dick Higuera Consult reason: chest pain Chief complaint: CP, near syncope Additional Medical History:: 1. Coronary artery disease with A. NM and subsequent coronary stenting, 2009, [place], [place]. Patient relates having to return for repeat coronary stenting within 1 week. B. [facility], 2018, ANGIOGRAPHIC RESULTS: 1. The left main artery normal 2. The left anterior descending artery has a stent in the very proximal segment which is widely patent free of angiographic in-stent restenosis. The proximal and distal aspects of the stent transition very nicely into the LAD. There is a mild 10-20% proximal LAD stenosis 3. The circumflex artery nondominant normal 4. The right coronary artery dominant normal 5. The STORM ventriculogram reveals normal 65% 6. The left ventricular end-diastolic pressure 10 mmHg IMPRESSION: 1. Widely patent proximal LAD stent with mild nonflow limiting disease 2. Normal ejection fraction 3. Normal left ventricular end-diastolic pressure PLAN: 1. Patient is having very impressive symptoms which appear to be noncardiac in origin. 2. I recommend he be referred to gastroenterology for EGD 3. Aggressive risk factor modification 4. LDL less than 55 5. Avoidance of tobacco products 2. Hypertension 3. Hyperlipidemia 4. History of GERD with history of blood in the stool but no prior evaluation per patient. 5. Tobacco use, 1-1.5 packs/day A. ?COPD 6. Strong family history of early heart disease in both his father and older brother in their 40s. 7. History of anxiety 8. Remote history of anemia History of present illness: 49-year-old white male was seen in the office yesterday for chest pain and near syncopal symptoms with recent Holter monitor showing a 3-second pause. Patient's metoprolol was discontinued due to the bradycardia with plans to proceed with left heart catheterization to reevaluate his known coronary artery disease and prior stent before proceeding with permanent pacemaker implantation.. After leaving the office yesterday patient had recurrent episode of chest pain/pressure with radiation to left arm. He talked to Dr. Ramires last evening and was told to come to the ER for further evaluation. He was subsequently admitted overnight with cardiology consultation. Patient's troponins have returned normal overnight. EKG showed sinus rhythm and no acute ST segment changes. [facility] History Medical History: Reports:: Anxiety, Asthma, Coronary Artery Disease, Deep Vein Thrombosis, Gastroesophageal Reflux Disease(GERD), Hyperlipidemia, Hypertension, Myocardial Infarction Denies:: Cancer, Diabetes Mellitus Type 1, Diabetes Mellitus Type 2, Internal Pacemaker, MRSA, Seizures *Have you ever received a pneumonia vaccine?: No *Have you received a flu vaccine this season?: Yes Laterality Cases: Left: Arthroscopy Shoulder Other Surgeries: Yes: Cardiac Catheterization, Cardiac Surgery, Coronary Stent, Other. No: Pacemaker Amputation: No Fractures: No - *Social History Last grade of school completed: 9th or 10th Smoking Status: Current every day smoker Tobacco Type: cigarettes # Packs/Day (cigarettes): 1 Alcohol Intake: never Alcohol Intake Frequency:: a few times a month Substance Use Type: denies use *Occupational Status:: unemployed Housing: house Household Members: spouse *Travel in the last 8 weeks: None - Psychiatric History Pschychiatric History:: Reports:: Anxiety Family Hx:: Anemia, Cancer, Heart Attack Meds Home Medications Medication Instructions Recorded Confirmed Type albuterol sulfate 1.25 mg INHALATION TID ml 05/14/17 10/21/19 History nitroglycerin 0.4 mg sublingual 0.4 mg SUBLINGUAL Q5-15M PRN 05/14/17 10/21/19 History tablet albuterol sulfate 90 mcg/actuation 2 puff INHALATION Q4H PRN #18 g 04/01/18 10/21/19 Rx aerosol inhaler ibuprofen 200 mg tablet 200 mg PO
--- NOTE | 2019-10-21 12:00 | PC.NURSE ---
to catheterization laboratory technician via wheelchair with Jenny
--- NOTE | 2019-10-21 12:47 | PC.NURSE ---
back from microbiological laboratory technician via bed
--- NOTE | 2019-10-21 13:14 | PC.NURSE ---
spoke to Kermit Austin APRN. 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 She verbalized understanding and gave verbal order for cardiac diet. Will be NPO at midnight again for pacemaker procedure tomorrow.
--- NOTE | 2019-10-21 15:42 | HMH.HP ---
*Admission Date: 10/20/19 *Chief complaint: chest pain *History of present illness: 49-year-old male was seen in [facility]'s office yesterday for chest pain and near syncopal symptoms with recent Holter monitor showing a 3-second pause. Patient's metoprolol was discontinued due to the bradycardia. After leaving [facility] office yesterday patient had recurrent episode of chest pain/pressure with radiation to left arm. Pt states he has a stent placed in the past and then it had to be redone due to stent colapsed. Pt states he smokes and family history of mi at early age. Pt states at age 45 his father with mi. Pt states numerous uncles that have been dx with heart dz.Cardiology consult placed. Patient's troponins have returned normal overnight. [facility] History I have reviewed the patient's past medical history: Yes Medical History: Reports:: Anxiety, Asthma, Coronary Artery Disease, Deep Vein Thrombosis, Gastroesophageal Reflux Disease(GERD), Hyperlipidemia, Hypertension, Myocardial Infarction Denies:: Cancer, Diabetes Mellitus Type 1, Diabetes Mellitus Type 2, Internal Pacemaker, MRSA, Seizures *Have you ever received a pneumonia vaccine?: No *Have you received a flu vaccine this season?: Yes Laterality Cases: Left: Arthroscopy Shoulder Other Surgeries: Yes: Cardiac Catheterization, Cardiac Surgery, Coronary Stent, Other. No: Pacemaker Amputation: No Fractures: No - *Social History Last grade of school completed: 9th or 10th Smoking Status: Current every day smoker Tobacco Type: cigarettes # Packs/Day (cigarettes): 1 Alcohol Intake: never Alcohol Intake Frequency:: a few times a month Substance Use Type: denies use *Occupational Status:: unemployed Housing: house Household Members: spouse *Travel in the last 8 weeks: None - Psychiatric History Pschychiatric History:: Reports:: Anxiety Family Hx:: Anemia, Cancer, Heart Attack Review of Systems - Review of Systems Review of systems:: pertinent systems reviewed and negative unless documented below - Constitutional Denies body ache(s), Denies lack of energy - Eyes Denies change in vision - ENT Denies change in voice, Denies neck pain - *Cardiovascular Reports chest pain, Reports chest pain at rest, Reports chest pain with activity - *Respiratory Denies change in phlegm color, Denies chest congestion - *Gastrointestinal Denies nausea, Denies vomiting - *Genitourinary Denies urinary frequency - *Musculoskeletal Denies decreased muscle mass - Integumentary/Breasts Denies rash - *Neurologic Denies localized weakness, Denies headache(s), Denies seizure-like activity - Psychiatric Denies anxiety - Endocrine Denies flushing - Hematologic/Lymphatic Denies enlarged lymph nodes - Allergic/Immunologic Denies itchy eyes Meds Home Medications Medication Instructions Recorded Confirmed Type albuterol sulfate 1.25 mg INHALATION TID ml 05/14/17 10/21/19 History nitroglycerin 0.4 mg sublingual 0.4 mg SUBLINGUAL Q5-15M PRN 05/14/17 10/21/19 History tablet albuterol sulfate 90 mcg/actuation 2 puff INHALATION Q4H PRN #18 g 04/01/18 10/21/19 Rx aerosol inhaler ibuprofen 200 mg tablet 200 mg PO Q6H PRN #30 tab 05/26/19 10/21/19 Rx aspirin 81 mg tablet,delayed 81 mg PO DAILY #90 tab 07/06/19 10/21/19 Rx release Amlodipine Besylate [Amlodipine 5 mg PO HS 10/20/19 10/21/19 History 5mg tab] Cetirizine HCl 10 mg PO HS 10/20/19 10/21/19 History Cholecalciferol (Vitamin D3) 1,000 units PO HS 10/20/19 10/21/19 History [Vitamin D3 1,000 Unit Cap] Cholecalciferol (Vitamin D3) 50,000 unit PO WEEKLY 10/20/19 10/21/19 History [Vitamin D3 50,000 unit Cap] Clopidogrel Bisulfate [Plavix 75mg 75 mg PO HS 10/20/19 10/21/19 History Tab] Escitalopram Oxalate 20 mg PO DAILY 10/20/19 10/21/19 History Omeprazole 40 mg PO HS 10/20/19 10/21/19 History Ramipril 10 mg PO HS 10/20/19 10/21/19 History Simvastatin 80 mg PO HS 10/20/19 10/21/19 Hist
--- NOTE | 2019-10-21 16:05 | PC.NURSE ---
tracelet off at 1600. No s/s of bleeding noted. Educated pt on risks of bleeding and not to apply pressure to right arm when gettin OOB to bathroom. Tracelet was initally dial down to 10 @ 1425 and was dialed down by 2 every 15min until 1540. No issues have been noted. Received call from Ken VIDAL with new order for cont pulse ox thru the night. Changed tele box for cont pulse ox to be enabled.
--- NOTE | 2019-10-21 17:39 | PC.NURSE ---
Pt has been stable this shift. Had left heart cath via right radial artery this shift. No stents were placed. Cardiac diet restarted. Plan is to have pacemaker inserted tomorrow. Will be NPO @ midnight for procedure tomorrow. VSS. Tracelet was dialed down by 2 every 15min from [id number]. Tracelet was taken OFF @ 1600. No issues noted. Pt has continuous pulse ox per Cardiology for thoughts of sleep apnea.
[2019-10-22] VITALS: BP 142/70; PULSE 60; PULSE 70; RESP 16; TEMP 36.6; O2SAT 96
[2019-10-22 03:43] VITALS: BP 125/74; PULSE 53; RESP 16; TEMP 36.6; O2SAT 96
[2019-10-22 04:00] VITALS: PULSE 50
[2019-10-22 05:02] VITALS: BMI 26.4
--- NOTE | 2019-10-22 05:36 | PC.NURSE ---
Pt has rested comfortably this shift. Pt has been NPO since 0000 for pacemaker implantation this AM. Pt has been tolerating RA appropriately with no episodes of apnea per continuous pulse ox. Pt continues to ambulate independently with a satisfactory gait. has remained at bedside. All safety protocols have been maintained. No complaints at this time, will continue to monitor.
[2019-10-22 06:14] LABS: Basophils # 0.1 K/mm3 (0-0.2); Basophils % 0.8 % (0.1-2.0); Hematocrit 43.7 % (42.0-52.0); Hemoglobin 14.9 g/dL (14.1-18.0); Lymphocytes # 4.4 K/mm3 (0.7-4.5); Lymphocytes % 33.6 % (10-50); Mean Corpuscular HGB Conc 34.1 g/dL (31.8-35.4); Mean Corpuscular Hemoglobin 33.3 pg (27.0-31.2); Mean Corpuscular Volume 97.8 fl (80-94); Mean Platelet Volume 7.2 fl (7.4-10.4); Monocytes # 0.5 K/mm3 (0.1-1.0); Neutrophils # 6.1 K/mm3 (1.8-7.8); Neutrophils % 46.6 % (37.0-80.0); Platelet Count 262 K/mm3 (142-424); Red Blood Count 4.46 M/mm3 (4.60-6.20); Red Cell Distribution Width 13.5 % (11.5-17.5)
[2019-10-22 06:19] LABS: Chloride 110 mmol/L (98-107); Sodium 140 mmol/L (136-145)
[2019-10-22 06:22] LABS: Blood Urea Nitrogen 13 mg/dl (9-20); Calcium 8.8 mg/dl (8.4-10.2); Carbon Dioxide 25 mmol/L (22.0-30.0); Creatinine Clearance Estimated 144 mL/min (50-200); Estimated Glomerular Filt Rate 103 ml/min (>60); GFR (African American) 125 ML/MIN (>60); Glucose 99 mg/dl (74-100)
--- NOTE | 2019-10-22 07:40 | HMH.PNCARD ---
Subjective Date: 10/22/19 Time: 07:40 Principal diagnosis: CP, bradycardia Interval history: 49-year-old white male in bed in no acute distress. Still has lack of energy and mild left-sided chest discomfort but cardiac cath yesterday showed no significant coronary artery disease. Telemetry overnight showed no significant bradycardia below 55 bpm. No pauses were identified. Pulse oximetry remained within normal limits overnight as well. I had a discussion with the patient regarding the pacemaker and recommendation to cancel pacemaker at this time. He is agreeable and ready to discharge home. Exam Vital signs and Labs for Last 24 Hours: Temp Pulse Resp BP Pulse Ox 97.8 F 50 L 16 125/74 96 10/22/19 03:43 10/22/19 04:00 10/22/19 03:43 10/22/19 03:43 10/22/19 03:43 Laboratory Results - last 24 hr 10/22/19 06:03: WBC 13.0 H, RBC 4.46 L, Hgb 14.9, Hct 43.7, MCV 97.8 H, MCH 33.3 H, MCHC 34.1, RDW 13.5, Plt Count 262, MPV 7.2 L, Neut % (Auto) 46.6, Lymph % (Auto) 33.6, [place] % (Auto) 4.0, Eos % (Auto) 15.0 H, Baso % (Auto) 0.8, Neut # (Auto) 6.1, Lymph # (Auto) 4.4, [place] # (Auto) 0.5, Eos # (Auto) 2.0 H, Baso # (Auto) 0.1 10/22/19 06:03: Sodium 140, Potassium 4.0, Chloride 110 H, Carbon Dioxide 25, Anion Gap 9.0, BUN 13, Creatinine 0.80, Estimated Creat Clear 144, Estimated GFR 103, Est GFR ( Amer) 125, Glucose 99, Calcium 8.8 I & O for Last 24 hours: Intake & Output 10/19/19 10/20/19 10/21/19 10/22/19 11:59 11:59 11:59 11:59 Intake Total 1189 / 1189 1447 / 1447 Balance 1189 / 1189 1447 / 1447 Weight 197 lb 199 lb 5 oz - *Routine HEENT Exam Head: Present: normocephalic Eye: Present: EOMI, PERRL ENT: Present: mucous membranes moist - *Routine Respiratory Exam Present: CTA bilaterally - *Routine Cardiovascular Exam Present: RRR - *Routine Abdominal Exam Present: soft, normoactive bowel sounds. Absent: tenderness - *Routine Extremities Exam Absent: cyanosis, clubbing, edema - *Routine Neurological Exam Present: alert, oriented X3 Progress Note: A&P (1) Near syncope Status: Acute Current Visit: Yes (2) Unstable angina pectoris Status: Acute Current Visit: Yes (3) Coronary artery disease Status: Chronic Current Visit: No (4) HTN (hypertension) Status: Chronic Current Visit: No (5) Presence of stent in LAD coronary artery Problem details: AMI and stent of 99% blockage in 2009 Status: Chronic Current Visit: No (6) Tobacco use Status: Acute Current Visit: Yes (7) HLD (hyperlipidemia) Status: Chronic Current Visit: No (8) Smoker Status: Chronic Current Visit: No (9) MANAV (obstructive sleep apnea) Status: Acute Current Visit: Yes Assessment and Plan for All Diagnoses:: 1. Bradycardia with 3-4-second pause noted on Holter monitoring while on metoprolol therapy. Metoprolol discontinued 48 hours ago with no recurrence of bradycardia or pauses. At this time pacemaker will be canceled and patient could be discharged home for outpatient follow-up. 2. Chest pain with cardiac cath showing widely patent LAD stent and no significant coronary artery disease in the other remaining arteries. 3. Suspected obstructive sleep apnea. We will plan for outpatient home sleep study. 4. CAD with remote history of [place] and coronary stenting in 2009. Left heart cath this admission shows patent coronaries and stent. Home medication recommendations Aspirin 81 mg daily Plavix 75 mg daily Ramipril 10 mg daily Amlodipine 5 mg nightly Simvastatin 80 mg daily Follow-up in our office in 1 week with plans to proceed with home sleep study thereafter.
[2019-10-22 08:00] VITALS: BP 133/71; PULSE 60; RESP 18; TEMP 36.5; O2SAT 95
--- NOTE | 2019-10-22 08:34 | HMH.DCSUM ---
General - General Admission date:: 10/21/19 Discharge date: 10/22/19 HPI HPI: 49-year-old male was seen in [facility]'s office yesterday for chest pain and near syncopal symptoms with recent Holter monitor showing a 3-second pause. Patient's metoprolol was discontinued due to the bradycardia. After leaving [facility] office yesterday patient had recurrent episode of chest pain/pressure with radiation to left arm. Pt states he has a stent placed in the past and then it had to be redone due to stent colapsed. Pt states he smokes and family history of mi at early age. Pt states at age 45 his father with mi. Pt states numerous uncles that have been dx with heart dz.Cardiology consult placed. Patient's troponins have returned normal overnight. Hospital Course Hospital Course: Laboratory Tests 10/20/19 10/20/19 10/20/19 20:12 20:12 23:20 WBC 13.7 H RBC 5.10 Hgb 16.9 Hct 49.4 MCV 96.9 H MCH 33.1 H MCHC 34.1 RDW 13.5 Plt Count 309 MPV 7.6 Neut % (Auto) 48.6 Lymph % (Auto) 32.2 [place] % (Auto) 5.1 Eos % (Auto) 12.8 H Baso % (Auto) 1.2 Neut # (Auto) 6.7 Lymph # (Auto) 4.4 [place] # (Auto) 0.7 Eos # (Auto) 1.8 H Baso # (Auto) 0.2 Sodium 142 Potassium 4.1 Chloride 107 Carbon Dioxide 26 Anion Gap 13.1 BUN 14 Creatinine 0.80 Estimated Creat Clear 145 Estimated GFR 103 Est GFR ( Amer) 125 Glucose 118 H Calcium 9.9 Troponin I < 0.01 < 0.01 10/21/19 10/21/19 10/21/19 02:10 06:03 06:03 WBC 12.3 H RBC 4.42 L Hgb 14.9 D Hct 44.2 MCV 99.9 H MCH 33.7 H MCHC 33.8 RDW 13.5 Plt Count 271 MPV 7.6 Neut % (Auto) 43.3 Lymph % (Auto) 36.4 [place] % (Auto) 5.6 Eos % (Auto) 13.8 H Baso % (Auto) 1.0 Neut # (Auto) 5.3 Lymph # (Auto) 4.5 [place] # (Auto) 0.7 Eos # (Auto) 1.7 H Baso # (Auto) 0.1 Sodium 142 Potassium 4.5 Chloride 110 H Carbon Dioxide 27 Anion Gap 9.5 BUN 15 Creatinine 0.80 Estimated Creat Clear 143 Estimated GFR 103 Est GFR ( Amer) 125 Glucose 103 H Calcium 9.0 Troponin I < 0.01 10/22/19 10/22/19 06:03 06:03 WBC 13.0 H RBC 4.46 L Hgb 14.9 Hct 43.7 MCV 97.8 H MCH 33.3 H MCHC 34.1 RDW 13.5 Plt Count 262 MPV 7.2 L Neut % (Auto) 46.6 Lymph % (Auto) 33.6 [place] % (Auto) 4.0 Eos % (Auto) 15.0 H Baso % (Auto) 0.8 Neut # (Auto) 6.1 Lymph # (Auto) 4.4 [place] # (Auto) 0.5 Eos # (Auto) 2.0 H Baso # (Auto) 0.1 Sodium 140 Potassium 4.0 Chloride 110 H Carbon Dioxide 25 Anion Gap 9.0 BUN 13 Creatinine 0.80 Estimated Creat Clear 144 Estimated GFR 103 Est GFR ( Amer) 125 Glucose 99 Calcium 8.8 Troponin I Microbiology 10/20/19 20:56 Nasopharyngeal Coronavirus COVID-19 PCR - Final echo: Conclusion 1. Normal left ventricular size, preserved left ventricular systolic function, visually estimated ejection fraction 55% with no regional wall motion abnormality, endocardial surfaces are poorly visualized, diastolic parameters are within normal range. 2. Mild mitral and tricuspid regurgitation. 3. No significant pericardial effusion noted. chest x ray: no acute findings heart cath: IMPRESSION Widely patent proximal LAD stent with remaining [id number] disease as described above Normal ejection fraction Normal left ventricular end-diastolic pressure PLAN 1. Proceed with pacemaker placement tomorrow morning for symptomatic bradycardia accompanied by syncope Today patient laying in bed states no complaints. Telemetry overnight showed no significant bradycardia below heart rate of 55. Per cardiology note there was no pauses identified. And pulse ox remained within normal limits. After cardiology talked with patient at this time they can hold pacemaker placement. Patient will b
== END 2019-10-22 10:08 | disposition home or self-care (01) ==
LOC: ER 20:30 → 2ND 21:01
PROVIDERS: Internal Medicine; Admitting Provider Emergency Medicine; Emergency Provider Emergency Medicine; PCP Emergency Medicine; Visit Provider Emergency Medicine
DX: I25.110 Atherosclerotic heart disease of native coronary artery with unstable angina pectoris (principal); Z95.5 Presence of coronary angioplasty implant and graft; I10 Essential (primary) hypertension; I25.2 Old myocardial infarction; E78.5 Hyperlipidemia, unspecified; Z72.0 Tobacco use; G47.33 Obstructive sleep apnea (adult) (pediatric); Z79.02 Long term (current) use of antithrombotics/antiplatelets; Z79.52 Long term (current) use of systemic steroids; Z79.899 Other long term (current) drug therapy
CPT/HCPCS: 36415; 71046; 80048; 84484; 85025; 93005; 93306; 93458; 96365; 99152; 99284; C1725; C1769; G0378; J1644; Q9967; U0003

== ENCOUNTER 2019-10-28 19:16 | Observation (INO) | payer MEDICAID, SELFPAY ==
[2019-10-28] VITALS (8 sets, daily range): BP systolic 128–165; BP diastolic 57–85; PULSE 69–91; RESP 16–18; TEMP 36.7–36.9; O2SAT 95–99; BMI 26.2; BMI 25.7
--- NOTE | 2019-10-28 19:13 | ECG_ITS ---
APPROVED REPORT Exam: Resting ECG HR:85 bpm ECG Measurements Heart Rate 85 AXES KS 172 P 58 QRSd 96 QRS 3 QT 362 T 61 QTc 430 <Conclusion> Normal sinus rhythm Normal ECG Electronically signed by : Jones Fraga, 10/30/2019 07:00:52
--- NOTE | 2019-10-28 19:32 | HMH.EDGENADL ---
ED Disposition Clinical Impression: Syncope Qualifiers: Syncope type: unspecified Qualified Code(s): R55 - Syncope and collapse Disposition: Admitted As Inpatient Condition on Discharge: Good Instructions: DI for Syncope in Adults (Fainting), DI for Syncope in Children (Fainting) Referrals: Dick Higuera MD [Primary Care Provider] - - Critical Care Critical Care Time: No Attestation: On 10/28/19, the high probability of a clinically significant, sudden or life threatening deterioration of the following system(s) required my full and direct attention, intervention and personal management. The time I documented below is in addition to time spent performing reported procedures but includes the following listed in this critical care notation. Medical Decision Making - Medical Records Medical records reviewed: Yes: I reviewed the patient's medical records. - Collin Inquiry Pt receiving controlled substance: No Vital Signs: 10/28/19 19:17 10/28/19 19:30 Temperature 98.5 F Temperature Source Oral Pulse Rate [Left Radial] 91 H 88 Respiratory Rate 16 18 Blood Pressure [Right Arm] 165/57 H 128/85 Blood Pressure Mean [Right Arm] 93 99 Blood Pressure Source [Right Arm] Automatic Cuff Automatic Cuff Blood Pressure Position [Right Arm] Sitting Supine 02 Sat by Pulse Oximetry 98 99 Oxygen Delivery Method Room Air Room Air - Lab Data Lab results reviewed: Yes: I reviewed the patient's lab results. Lab Results 10/28/19 19:20: Sodium 139, Potassium 4.2, Chloride 101, Carbon Dioxide 28, Anion Gap 14.2, BUN 15, Creatinine 0.90, Estimated Creat Clear 128, Estimated GFR 90, Est GFR ( Amer) 109, Glucose 111 H, Calcium 9.7, Total Bilirubin 0.5, Direct Bilirubin 0.2, Conjugated Bilirubin 0.0, Indirect Bilirubin 0.3, Unconjugated Bilirubin 0.3, AST 37, ALT 36, Alkaline Phosphatase 86, Troponin I < 0.01, Total Protein 7.9, Albumin 4.8 10/28/19 19:20: D-Dimer 0.51 10/28/19 19:20: WBC 13.7 H, RBC 5.20, Hgb 17.4, Hct 49.9, MCV 95.8 H, MCH 33.4 H, MCHC 34.8, RDW 13.3, Plt Count 332, MPV 7.0 L, Neut % (Auto) 50.7, Lymph % (Auto) 31.6, [place] % (Auto) 5.0, Eos % (Auto) 11.8, Baso % (Auto) 0.9, Neut # (Auto) 7.0, Lymph # (Auto) 4.3, [place] # (Auto) 0.7, Eos # (Auto) 1.6 H, Baso # (Auto) 0.1 Result diagrams: 10/28/19 19:20 10/28/19 19:20 Orders (Tests/Meds): ORDERS Category Date Time Status XR chest 2V Stat Exams 10/28/19 19:35 Taken Troponin I Q3H Lab 10/28/19 22:45 Ordered Troponin I Q3H Lab 10/29/19 01:45 Ordered Medical Decision Narrative: 49-year-old male with cardiac history presenting after syncopal episode and told to be admitted to cardiology for pacemaker placement tomorrow. Nontoxic, afebrile, hemodynamically stable. Will add chest x-ray, CBC, CMP, troponin, EKG which was nonischemic and without arrhythmia, d-dimer. 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 Patient remained stable in my care. General Adult HPI - General Chief complaint: Syncope Stated complaint: dizziness, SOB Time Seen by Provider: 10/28/19 19:33 Mode of Arrival: Ambulatory Limitations: No Limitations Description of Symptoms (Recalled from ER Triage Doc. by RN): pt stated he has had increased dizziness, SOB and nausea since being discharged from [facility] last week after his heart cath. pt stated they called Dr. Ike fay and he stated to come to the ER and be admited for a possible pacemaker placement. pt deneis cough of fever at this time. - History of Present Illness HPI narrative: This is a 49-year-old male with a history of coronary artery disease 1 week status post cardiac catheterization who was recently admitted for multiple episodes of syncope and was told that he needed a pacemaker who returns to the emergency department today after a syncopal episode witnessed by his girlfriend. He has chronic chest pain but no acute worsening today. No cough or shortness of breath. No nausea, vomiting,
--- NOTE | 2019-10-28 19:35 | XR_ITS ---
PROCEDURE: XR CHEST 2V CLINICAL HISTORY: syncope Irregular heart beat, current smoker COMPARISON: CR CXR CHEST(2 VIEWS-NOT PORTABLE) from 07/31/2014 CR CXR CHEST(2 VIEWS-NOT PORTABLE) from 10/25/2015 CR XR CHEST 2V from 10/20/2019 FINDINGS: The cardiomediastinal silhouette and pulmonary vascularity are within normal limits. The lungs are clear without infiltrates, suspicious nodules, or pleural effusions. No acute bony abnormalities. IMPRESSION: No acute findings. Dictated by: Hosea Reid MD 10/29/2019 06:30 Hosea Reid MD in OV 10/29/2019 06:30
[2019-10-28 19:52] LABS: Alanine Aminotransferase 36 U/L (12-78); Albumin Level 4.8 g/dl (3.5-5.0); Alkaline Phosphatase 86 U/L (38-126); Anion Gap 14.2 mEq/L (5-15); Aspartate Amino Transferase 37 U/L (17-59); Basophils # 0.1 K/mm3 (0-0.2); Basophils % 0.9 % (0.1-2.0); Bilirubin,Direct 0.2 mg/dl (0.0-0.4); Bilirubin,Indirect 0.3 mg/dL (0.0-0.9); Bilirubin,Total 0.5 mg/dl (0.2-1.3); Bilirubin,Unconjugated 0.3 mg/dL (0.0-1.1); Blood Urea Nitrogen 15 mg/dl (9-20); Calcium 9.7 mg/dl (8.4-10.2); Carbon Dioxide 28 mmol/L (22.0-30.0); Chloride 101 mmol/L (98-107); Creatinine Clearance Estimated 128 mL/min (50-200); Eosinophils # 1.6 K/mm3 (0.0-0.4); Eosinophils % 11.8 % (0.1-12.0); Estimated Glomerular Filt Rate 90 ml/min (>60); GFR (African American) 109 ML/MIN (>60); Glucose 111 mg/dl (74-100); Hematocrit 49.9 % (42.0-52.0); Hemoglobin 17.4 g/dL (14.1-18.0); Lymphocytes # 4.3 K/mm3 (0.7-4.5); Lymphocytes % 31.6 % (10-50); Mean Corpuscular HGB Conc 34.8 g/dL (31.8-35.4); Mean Corpuscular Hemoglobin 33.4 pg (27.0-31.2); Mean Corpuscular Volume 95.8 fl (80-94); Monocytes # 0.7 K/mm3 (0.1-1.0); Neutrophils % 50.7 % (37.0-80.0); Platelet Count 332 K/mm3 (142-424); Potassium 4.2 mmoL/L (3.5-5.1); Red Cell Distribution Width 13.3 % (11.5-17.5); Sodium 139 mmol/L (136-145); Total Protein,Serum 7.9 g/dl (6.3-8.2); White Blood Count 13.7 K/mm3 (4.8-10.8)
[2019-10-28 19:57] LABS: D-Dimer 0.51 ug/mL (0.15-8.0)
[2019-10-28 20:13] LABS: Troponin I < 0.01 ng/ml (0.00-0.034)
--- NOTE | 2019-10-28 20:39 | PC.NURSE ---
spoke to stefania. call out to dr aguilar who is construction controller for dr. mercado
--- NOTE | 2019-10-28 20:41 | PC.NURSE ---
on phone with dr. aguilar
[2019-10-28 21:18] LABS: Coronavirus 19 IgG Antibody Negative (Negative); Coronavirus 19 IgM Antibody Negative (Negative)
--- NOTE | 2019-10-28 21:44 | PC.NURSE ---
patient up to floor via wheelchair.
[2019-10-29] VITALS: PULSE 60
[2019-10-29 04:00] VITALS: BP 117/63; PULSE 68; PULSE 70; RESP 18; TEMP 36.7; O2SAT 92
[2019-10-29 04:10] VITALS: PULSE 64; PULSE 66
--- NOTE | 2019-10-29 04:52 | PC.NURSE ---
A&OX4. PT HAS TOLERATED ROOM AIR WELL THROUGHOUT SHIFT. RESPIRATIONS REGULAR AND UNLABORED. LUNG SOUNDS BILATERALLY CLEAR. NO COUGH NOTED. ACTIVE BOWEL SOUNDS HEARD IN ALL 4 QUADRANTS. SOFT AND NONTENDER ABDOMEN. NO BM REPORTED THIS SHIFT. PT AMBULATES INDEPENDENTLY IN THE ROOM AND MOVES INDEPENDENTLY IN THE BED. HAND BRICK WASHER EQUAL. +2 PULSES NOTED THROUGHOUT. PT REPORTED BEING SOB ONCE THIS SHIFT AND RECEIVED A DUONEB. NO REPORTS OF PAIN THUS FAR. HAS REMAINED AT BEDSIDE. PT HAS REMAINED ON TELE THROUGHOUT SHIFT. PT CURRENTLY LYING IN BED SLEEPING. CALL LIGHT WITHIN REACH. BED IN LOWEST POSITION. VSS. WILL CONTINUE TO MONITOR.
[2019-10-29 05:03] VITALS: BMI 25.6
[2019-10-29 06:20] VITALS: PULSE 63; O2SAT 92
--- NOTE | 2019-10-29 07:23 | P.CONPHA_ITS ---
[facility] Pharmacy VTE Monitoring - Patient Demographics Admission date: 10/28/19 Report Date: 10/29/19 Time: 07:23 Allergies/Adverse Reactions: Patient Allergies No Known Allergies Allergy (Verified 10/21/19 00:27) Height: 1.85 m Weight: 87.713 kg Patient Problems: Current Active Problems (Last Updated 05/18/17 @ 13:01 by YOUNG Bird) Syncope (Acute) - VTE Risk Labs: VTE Related Lab Results Hgb 17.4 g/dL (14.1-18.0) 10/28/19 19:20 Hct 49.9 % (42.0-52.0) 10/28/19 19:20 Plt Count 332 K/mm3 (142-424) 10/28/19 19:20 BUN 15 mg/dl (9-20) 10/28/19 19:20 Creatinine 0.90 mg/dl (0.66-1.25) 10/28/19 19:20 Estimated Creat Clear 128 mL/min (50-200) 10/28/19 19:20 Was VTE Risk Assessment Performed: Yes VTE Score: 6 VTE Risk Level: Moderate Risk - Prophylaxis VTE Prophylaxis Ordered?: Yes Types of VTE Prophylaxis: TEDS Knee High Location of Applied Device: Bilateral Lower Extremeties
--- NOTE | 2019-10-29 07:54 | HMH.PHAINT ---
MEDICATION RECONCILIATION COMPLETED ON PATIENT USING EXTERNAL FILL HISTORY FROM PHARMACY AND LIST FROM PREVIOUS ADMISSION. -SCAR SMALLSD
[2019-10-29 08:00] VITALS: BP 115/63; PULSE 66; PULSE 80; RESP 20; TEMP 36.6; O2SAT 96; O2SAT 98
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
--- NOTE | 2019-10-29 10:21 | P.PCN_ITS ---
[facility] Loop Recorder Date: 10/29/19 Time: 10:22 Procedure Performed:: Implantation of loop recorder Indication:: Syncope Technique:: Patient was brought to the cardiac On Air Announcer. After informed consent obtained, 1% lidocaine with epinephrine was used to anesthetize the site along the left anterior aspect of the chest near the sternal border. Using the preformed scalpel, an incision was made and using the supplied preloaded apparatus, the lo op recorder was placed subcutaneously without difficulty. Following the deployment of the loop recorder interrogation of the device was performed to ensure appropriate voltage was being detected. Once this was verified, Steri- Strips were placed over the incision and the patient was prepped to discharge home. Patient tolerated the procedure well with minimal discomfort. Impression:: Successful implantation of loop recorder Serial Number:: [id number] Plan:: Routine postop care
[2019-10-29 12:00] VITALS: BP 120/61; PULSE 70; PULSE 71; RESP 18; TEMP 36.9; O2SAT 97
[2019-10-29 13:31] LABS: Prostate Specific Ag Screen 0.9 ng/ml (0.0-4.0)
--- NOTE | 2019-10-29 13:44 | HMH.HPDC ---
General - General Admission date:: 10/28/19 Discharge date: 10/29/19 *Admission Date: 10/28/19 *Chief complaint: syncope *History of present illness: 49-year-old male with known history of coronary artery disease was brought to the emergency department for evaluation of syncope. Patient relates walking yesterday afternoon to take mail to his neighbor's house and then upon returning decided to sit outside in a chair under the tree. He denies chest pain but did have some left posterior chest discomfort without radiation or continuation. He has had some intermittent dizziness which is usually followed by nausea but no vomiting. He did have an episode of this while sitting in the chair prior to waking up to his girlfriend and neighbor trying to wake him up.. He thinks it was approximately around 3:00 when he went outside. His significant other came home around 5:00 because of not being able to get in touch with him by phone or social media. Patient was found in the chair unconscious.per [facility] History I have reviewed the patient's past medical history: Yes Medical History: Reports:: Anxiety, Asthma, Coronary Artery Disease, Deep Vein Thrombosis, Gastroesophageal Reflux Disease(GERD), Hyperlipidemia, Hypertension, Myocardial Infarction Denies:: Cancer, Diabetes Mellitus Type 1, Diabetes Mellitus Type 2, Internal Pacemaker, MRSA, Seizures *Have you ever received a pneumonia vaccine?: No *Have you received a flu vaccine this season?: Yes Laterality Cases: Left: Arthroscopy Shoulder Other Surgeries: Yes: Cardiac Catheterization, Cardiac Surgery, Coronary Stent, Other. No: Pacemaker Amputation: No Fractures: No - *Social History Last grade of school completed: 9th or 10th Smoking Status: Current every day smoker Tobacco Type: cigarettes # Packs/Day (cigarettes): 1 Alcohol Intake: never Alcohol Intake Frequency:: a few times a month Substance Use Type: denies use *Occupational Status:: unemployed Housing: house Household Members: spouse *Travel in the last 8 weeks: None - Psychiatric History Pschychiatric History:: Reports:: Anxiety Family Hx:: Asthma, Cancer, Heart Attack, Hyperlipidemia, Hypertension, Thyroid Disorder Review of Systems - Review of Systems Review of systems:: pertinent systems reviewed and negative unless documented below - Constitutional Denies body ache(s) - Eyes Denies blurry vision - ENT Denies bleeding gums - *Cardiovascular Denies chest pain at rest - *Respiratory Denies chest congestion - *Gastrointestinal Denies belching, Denies nausea, Denies vomiting - *Genitourinary Denies urinary urgency - *Musculoskeletal Denies body aches - Integumentary/Breasts Denies rash - *Neurologic Reports dizziness, Reports fainting, Reports dizziness, Reports weakness - Psychiatric Denies lack of enjoyment - Endocrine Denies excessive sweating - Hematologic/Lymphatic Denies easy bruising - Allergic/Immunologic Denies itchy eyes Exam Vital signs and Labs for Last 24 Hours: Temp Pulse Resp BP Pulse Ox 98.4 F 71 18 120/61 97 10/29/19 12:00 10/29/19 12:00 10/29/19 12:00 10/29/19 12:00 10/29/19 12:00 Laboratory Results - last 24 hr 10/28/19 19:20: Sodium 139, Potassium 4.2, Chloride 101, Carbon Dioxide 28, Anion Gap 14.2, BUN 15, Creatinine 0.90, Estimated Creat Clear 128, Estimated GFR 90, Est GFR ( Amer) 109, Glucose 111 H, Calcium 9.7, Total Bilirubin 0.5, Direct Bilirubin 0.2, Conjugated Bilirubin 0.0, Indirect Bilirubin 0.3, Unconjugated Bilirubin 0.3, AST 37, ALT 36, Alkaline Phosphatase 86, Troponin I < 0.01, Total Protein 7.9, Albumin 4.8 10/28/19 19:20: D-Dimer 0.51 10/28/19 19:20: WBC 13.7 H, RBC 5.20, Hgb 17.4, Hct 49.9, MCV 95.8 H, MCH 33.4 H, MCHC 34.8, RDW 13.3, Plt Count 332, MPV 7.0 L, Neut % (Auto) 50.7, Lymph % (Auto) 31.6, [place] % (Auto) 5.0, Eos % (Auto) 11.8, Baso % (Auto) 0.9, Neut # (Auto) 7.0, Lymph # (Auto) 4.3, [place] # (Auto) 0.7, Eos #
[2019-10-29 14:11] LABS: Microscopic, Urine URINE MICROSCOPIC (MICROSCOPIC)
[2019-10-29 14:13] LABS: Appearance,Urine CLEAR (Clear); Bilirubin,Urine Negative (Negative); Blood, Urine Negative (Negative); Color,Urine YELLOW (Yellow); Glucose,Urine (UA) Negative (Negative); Ketones,Urine Negative (Negative); Leukocyte Esterase,Urine Negative (Negative); Nitrate,Urine Negative (Negative); Protein,Urine Negative (Negative); Specific Gravity, Urine 1.025 (1.005-1.030)
[2019-10-29 14:24] LABS: RBC,Urine Occasional #/hpf (0-3)
== END 2019-10-29 14:16 | disposition home or self-care (01) ==
LOC: ER 20:40 → 2ND 22:29
PROVIDERS: Internal Medicine; Physician Assistant; Admitting Provider Family Medicine; Emergency Provider Physician Assistant; PCP Emergency Medicine; Visit Provider Emergency Medicine
DX: R55 Syncope and collapse (principal); I25.10 Atherosclerotic heart disease of native coronary artery without angina pectoris; I25.2 Old myocardial infarction; I10 Essential (primary) hypertension; Z95.5 Presence of coronary angioplasty implant and graft; Z72.0 Tobacco use; E78.5 Hyperlipidemia, unspecified; Z12.5 Encounter for screening for malignant neoplasm of prostate
CPT/HCPCS: 33285; 36415; 71046; 80048; 80076; 81001; 84484; 85025; 85378; 86328; 93005; 94640; 99284; G0103; G0378

== ENCOUNTER → 2019-11-04 11:33 | Outpatient (CLI) | payer MEDICAID, SELFPAY ==
--- NOTE | 2019-12-01 09:46 | PC.NURSE ---
PATIENT TOOK HST HOME AND RETURNED DEVICE - NOT ENOUGH DATA ON DEVICE - THEREFORE NO CHARGE
== END ==
PROVIDERS: PCP Emergency Medicine; Visit Provider Urology
DX: G47.33 Obstructive sleep apnea (adult) (pediatric) (principal)

== ENCOUNTER → 2019-11-08 13:29 | Outpatient (CLI) | payer MEDICAID, SELFPAY ==
[2019-11-10 07:39] LABS: Covid-19 Nasal PCR Sendout Lex NOT DETECTED
== END ==
PROVIDERS: PCP Emergency Medicine; Visit Provider Nurse Practitioner Family
DX: Z03.818 Encounter for observation for suspected exposure to other biological agents ruled out (principal)
CPT/HCPCS: U0004

== ENCOUNTER → 2019-12-10 13:50 | Outpatient (CLI) | payer MEDICAID, SELFPAY ==
--- NOTE | 2019-12-10 14:32 | PC.NURSE ---
Albuterol 0.083% given via hand held nebulizer per PFT protocol, Pt tolerated treatment well.
== END ==
PROVIDERS: PCP Physician Assistant; Visit Provider Nurse Practitioner Family
DX: R06.02 Shortness of breath (principal)
CPT/HCPCS: 94060; 94618; 94726; 94729

== ENCOUNTER → 2020-01-13 19:25 | Outpatient (CLI) | payer MEDICAID, SELFPAY ==
[2020-01-13 19:56] LABS: Basophils # 0.1 K/mm3 (0-0.2); Basophils % 0.9 % (0.1-2.0); Eosinophils % 10.2 % (0.1-12.0); Hematocrit 51.8 % (42.0-52.0); Hemoglobin 17.5 g/dL (14.1-18.0); Lymphocytes # 3.4 K/mm3 (0.7-4.5); Lymphocytes % 32.8 % (10-50); Mean Corpuscular HGB Conc 33.8 g/dL (31.8-35.4); Mean Corpuscular Hemoglobin 32.6 pg (27.0-31.2); Mean Corpuscular Volume 96.3 fl (80-94); Mean Platelet Volume 8.8 fl (7.4-10.4); Monocytes # 0.6 K/mm3 (0.1-1.0); Monocytes % 5.3 % (1.7-9.3); Neutrophils # 5.2 K/mm3 (1.8-7.8); Neutrophils % 50.8 % (37.0-80.0); Platelet Count 354 K/mm3 (142-424); Red Blood Count 5.37 M/mm3 (4.60-6.20); Red Cell Distribution Width 13.3 % (11.5-17.5); White Blood Count 10.2 K/mm3 (4.8-10.8)
[2020-01-13 20:08] LABS: Alanine Aminotransferase 29 U/L (12-78); Albumin Level 4.9 g/dl (3.5-5.0); Albumin/Globulin Ratio 1.9 (1.1-1.8); Alkaline Phosphatase 77 U/L (38-126); Anion Gap 17.7 mEq/L (5-15); Aspartate Amino Transferase 26 U/L (17-59); Bilirubin,Total 0.5 mg/dl (0.2-1.3); Blood Urea Nitrogen 15 mg/dl (9-20); Calcium 10.1 mg/dl (8.4-10.2); Carbon Dioxide 24 mmol/L (22.0-30.0); Chloride 105 mmol/L (98-107); Chol/HDL Ratio 3.8 (1-3.5); Cholesterol 139 mg/dl (140-200); Estimated Glomerular Filt Rate 90 ml/min (>60); GFR (African American) 109 ML/MIN (>60); Globulin 2.6 g/dL (1.3-3.2); Glucose 83 mg/dl (74-100); HDL Cholesterol 37 mg/dl (40-60); Potassium 4.7 mmoL/L (3.5-5.1); Sodium 142 mmol/L (136-145); Total Protein,Serum 7.5 g/dl (6.3-8.2); Triglycerides 114 mg/dl (30-150); VLDL Cholesterol 23 mg/dL (0-40)
[2020-01-13 20:19] LABS: Direct LDL Cholesterol 83.89 mg/dL (100-129)
[2020-01-13 20:27] LABS: 25-OH Vitamin D, Total 108 ng/mL (30-100)
[2020-01-13 20:40] LABS: Thyroid Stimulating Hormone 0.55 uIU/mL (0.465-4.68)
== END ==
PROVIDERS: Visit Provider Physician Assistant
DX: R55 Syncope and collapse (principal); E78.5 Hyperlipidemia, unspecified; I10 Essential (primary) hypertension; E55.9 Vitamin D deficiency, unspecified; R53.83 Other fatigue
CPT/HCPCS: 80053; 80061; 82306; 84443; 85025

== ENCOUNTER 2020-01-21 07:59 | Day surgery (SDC) | payer MEDICAID, SELFPAY ==
[2020-01-21] VITALS (7 sets, daily range): BP systolic 120–143; BP diastolic 72–98; PULSE 78–96; RESP 16–18; TEMP 36.6–36.9; O2SAT 95–96; BMI 27.6
--- NOTE | 2020-01-21 | IR_ITS ---
APPROVED REPORT Patient Location: Outpatient Manager Quality Improvement: STEPHEN Barahona RT (R) PROCEDURES 1. Pocket formation for Permanent Pacemaker Placement. 2. Placement of an atrial sensing and pacing coil into the right atrial appendage. 3. Placement of a ventricular sensing and pacing coil in the right ventricular apex. 4. Permanent Pacemaker Placement. INDICATION Symptomatic Bradycardia Informed consent was obtained prior to the procedure. COMPLICATIONS NONE Estimated Blood Loss: LESS THAN 10 ML TECHNIQUE 1% Lidocaine with epinephrine used to anesthetized the left anterior aspect of the chest. Scalpel was used to make the initial cutaneous incision while electrocautery was used to dissect down tinto the fascia. The fascia was lifted off the pectoralis muscle and digitally manipulated creating a pocket for the pacemaker. The patient was then placed in Trendelenburg position and the subclavian vein was accessed twice via the Selinger technique, there are two wires in the vein. A 6 Icelandic sheath was placed under fluoroscopic guidance into the subclavian vein over one of the wires while keeping the other wire in place within the subclavian vein. The dilator was removed from the sheath. Using fluoroscopic guidance, the ventricular lead was placed into the right ventricular apex, screwed and secured into place. Electronic interrogation proved acceptable thresholds and voltage within the lead. Using 3-0 silk, the ventricular lead was then secured into place. Lead was secured to the facia using the 3-0 silk. Following this, the sheath was pealed away. An additional 6 Icelandic fresh sheath and dilator was placed over the existing wire. Using fluoroscopic guidance, the atrial lead was the placed into the right atrial appendage and screwed and secured in place. Electrical interrogation demonstrated acceptable thresholds and voltage number. The atrial lead was then secured into place using 3-0 silk. 1 gram of Ancef was used to flush the pocket. Following the pacemaker generator being secured to the fascia and in place, Monocryl was used to close the subcutaneous layers while gilma were used to close the cutaneous layer. A pressure dressing was placed and the patient was transferred to the postop holding area in stable condition for postoperative care. INTERROGATION Generator Model number: StyleTrek MRI DR IS-1 L311 Generator Serial number: [id number] Atrial lead model number: Ingevity + IS-1 Bi Positive Fix RA/RV 52cm 7841 Atrial lead serial number: [id number] P-wave: 4.0 mV Impedence: 550 Ohms Threshold: 1.0V@0.4ms Right Ventricular lead model number: Ingevity + IS-1 Bi Positive Fix RA/RV 59 cm 7842 Right Ventricular lead serial number: [id number] R-wave: 10.0 mV Impedence: 850 Ohms Threshold: 0.5V@0.4ms Pacing Parameters: Mode: DDDR Base/Max Track: 60bpm/130bpm No diaphragmatic stimulation at 10 volts. IMPRESSION 1. Successful Pocket formation for Permanent Pacemaker Placement. 2. Successful Placement of an atrial sensing and pacing coil into the right atrial appendage. 3. Successful Placement of a ventricular sensing and pacing coil in the right ventricular apex. 4. Successful Permanent Pacemaker Placement. PLAN 1. Post Op Wound Care. 2. Follow up office visit. Electronically signed by : Sahil Ramires, 01/24/2020 14:58:34
[2020-01-21 08:52] LABS: Basophils # 0.1 K/mm3 (0-0.2); Basophils % 0.8 % (0.1-2.0); Eosinophils # 1.6 K/mm3 (0.0-0.4); Hematocrit 49.9 % (42.0-52.0); Lymphocytes # 4.3 K/mm3 (0.7-4.5); Mean Corpuscular HGB Conc 34.1 g/dL (31.8-35.4); Mean Corpuscular Hemoglobin 32.8 pg (27.0-31.2); Mean Corpuscular Volume 96.3 fl (80-94); Mean Platelet Volume 7.2 fl (7.4-10.4); Monocytes # 0.8 K/mm3 (0.1-1.0); Monocytes % 5.8 % (1.7-9.3); Neutrophils # 7.5 K/mm3 (1.8-7.8); Neutrophils % 52.3 % (37.0-80.0); Platelet Count 306 K/mm3 (142-424); Red Blood Count 5.18 M/mm3 (4.60-6.20); Red Cell Distribution Width 13.4 % (11.5-17.5); White Blood Count 14.3 K/mm3 (4.8-10.8)
[2020-01-21 08:54] LABS: Chloride 109 mmol/L (98-107); Potassium 3.8 mmoL/L (3.5-5.1); Sodium 141 mmol/L (136-145)
[2020-01-21 08:57] LABS: Anion Gap 11.8 mEq/L (5-15); Blood Urea Nitrogen 17 mg/dl (9-20); Calcium 9.9 mg/dl (8.4-10.2); Carbon Dioxide 24 mmol/L (22.0-30.0); Creatinine Clearance Estimated 130 mL/min (50-200); Estimated Glomerular Filt Rate 90 ml/min (>60); GFR (African American) 109 ML/MIN (>60); Glucose 108 mg/dl (74-100)
[2020-01-21 09:14] LABS: Coronavirus 19 IgG Antibody Negative (Negative); Coronavirus 19 IgM Antibody Negative (Negative)
--- NOTE | 2020-01-21 14:10 | XR_ITS ---
PROCEDURE: XR CHEST PORTABLE CLINICAL HISTORY: Confirm pacemaker/AID placement COMPARISON: CR CXR CHEST(2 VIEWS-NOT PORTABLE) from 10/25/2015 CR XR CHEST 2V from 10/20/2019 CR XR CHEST 2V from 10/28/2019 FINDINGS: There has been interval insertion of a bipolar pacemaker left subclavian. The leads are in good position. There is no evidence of pneumothorax. Normal heart size. The lungs are clear without infiltrates, suspicious nodules, or pleural effusions. No acute bony abnormalities. IMPRESSION: Interval pacemaker insertion with good lead position and no evidence of pneumothorax Dictated by: Hosea Reid MD 01/21/2020 14:28 Hosea Reid MD in [place] 01/21/2020 14:28
== END 2020-01-21 14:48 | disposition home or self-care (01) ==
LOC: CATHLAB 08:01
PROVIDERS: PCP Emergency Medicine; Visit Provider Internal Medicine
DX: I49.5 Sick sinus syndrome (principal); I10 Essential (primary) hypertension; J44.9 Chronic obstructive pulmonary disease, unspecified; E78.5 Hyperlipidemia, unspecified; Z95.5 Presence of coronary angioplasty implant and graft; Z79.02 Long term (current) use of antithrombotics/antiplatelets; Z79.899 Other long term (current) drug therapy
CPT/HCPCS: 33208; 71045; 80048; 85025; 86328; 99152; 99153; C1785; C1898

== ENCOUNTER → 2020-03-13 13:37 | Outpatient (CLI) | payer MEDICAID, SELFPAY ==
--- NOTE | 2020-03-13 13:37 | CT_ITS ---
PROCEDURE: CT CHEST W CON CLINCAL INDICATION: dyspnea SOA, PACEMAKER PLACED JAN 2020 75ML ISO 370 COMPARISON: No exams were available for comparison TECHNIQUE: IV Contrast: 75ml Isovue 370 Axial images obtained with sagittal and coronal reformats. All CT scans at the facility use one or more dose reduction, viz: automated exposure control, ma/kV adjustment per patient size (including targeted exams where dose is matched to indication, i.e. head), or iterative reconstruction technique. FINDINGS: 9 mm hypodense nodules present in the left lobe of the thyroid gland. Cardiac pacemaker device is present from left subclavian approach. Scattered small nodes are present in the axilla. No evidence of aortic aneurysm or dissection. No evidence of pulmonary embolus. Coronary artery stent is noted. No mediastinal or hilar mass or adenopathy. There is a small subpleural opacity in the left apex measuring approximately 8 mm and may be due to an area of scarring. Stability may be confirmed with follow-up. There is a linear opacity in the lingula may be due to an area of scarring or atelectatic change. This measures approximately 10 mm. Small subpleural opacity right apex at 6 mm also may be due to an area of scarring. There is mild hyperinflation with mild bronchial thickening consistent with COPD. Calcified granuloma is present in the right lung base. Upper abdominal images are unremarkable. There is minimal wedging of T6 and T4 age indeterminate. IMPRESSION: 1. There is a 8 mm subpleural nodule in the left apex and a 6 mm subpleural nodule in the right apex. These may be due to areas of scarring. Suggest 6 month follow-up to confirm stability in this patient with smoking history to exclude developing nodules. 2. 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 Age indeterminate mild wedging of T4 and T6 Dictated by: Hosea Reid MD 03/14/2020 13:56 Hosea Reid MD in [place] 03/14/2020 13:56
== END ==
PROVIDERS: PCP Emergency Medicine; Visit Provider Nurse Practitioner Family
DX: R06.09 Other forms of dyspnea (principal); I25.10 Atherosclerotic heart disease of native coronary artery without angina pectoris; E78.49 Other hyperlipidemia; I10 Essential (primary) hypertension; Z95.0 Presence of cardiac pacemaker; Z95.5 Presence of coronary angioplasty implant and graft
CPT/HCPCS: 71260; Q9967

== ENCOUNTER → 2020-06-20 09:18 | Outpatient (CLI) | payer MEDICAID, SELFPAY ==
[2020-06-20 09:48] LABS: Adenovirus,PCR Not Detected (NotDetected); Bordetella Pertussis Not Detected (NotDetected); Chlamydophila Pneumoniae, PCR Not Detected (NotDetected); Coronavirus 19, PCR Not Detected (NotDetected); Coronavirus 229E Not Detected (NotDetected); Coronavirus NL63 Not Detected (NotDetected); Coronavirus OC43 Not Detected (NotDetected); Coronovirus HKU1,PCR Not Detected (NotDetected); Human Metapneumovirus Not Detected (NotDetected); Influenza A, PCR Not Detected (NotDetected); Influenza AH1, 2009 Not Detected (NotDetected); Influenza AH1, PCR Not Detected (NotDetected); Influenza AH3,PCR Not Detected (NotDetected); Influenza B, PCR Not Detected (NotDetected); Mycoplasma Pneumoniae, PCR Not Detected (NotDetected); Parainfluenza 1, PCR Not Detected (NotDetected); Parainfluenza 2, PCR Not Detected (NotDetected); Parainfluenza 3, PCR Not Detected (NotDetected); Parainfluenza 4, PCR Not Detected (NotDetected); Respiratory Syncytial Virus Not Detected (NotDetected)
[2020-06-20 23:13] LABS: Rhinovirus/Enterovirus Detected (NotDetected)
== END ==
PROVIDERS: PCP Emergency Medicine; Visit Provider Physician Assistant
DX: Z20.822 Contact with and (suspected) exposure to COVID-19 (principal); A08.11 Acute gastroenteropathy due to Norwalk agent
CPT/HCPCS: 87581; 87633; 87798

== ENCOUNTER → 2020-08-02 09:52 | Outpatient (CLI) | payer MEDICAID, SELFPAY ==
--- NOTE | 2020-08-02 10:05 | XR_ITS ---
PROCEDURE: XR CHEST 2V CLINICAL HISTORY: dyspnea COMPARISON: CR XR CHEST 2V from 10/20/2019 CR XR CHEST 2V from 10/28/2019 CR XR CHEST PORTABLE from 01/21/[address] CHEST W CON from 03/13/2020 FINDINGS: The cardiomediastinal silhouette and pulmonary vascularity are within normal limits. Bipolar pacemaker is present from left subclavian approach. Leads are terminating in the area of the right atrium and right ventricle. Coronary artery calcification and/or stent noted. Lungs are clear. No acute bony findings. IMPRESSION: No acute findings. Dictated by: Hosea Reid MD 08/02/2020 12:53 Hosea Reid MD in [place] 08/02/2020 12:53
[2020-08-02 10:07] LABS: Basophils # 0.1 K/mm3 (0-0.2); Basophils % 1.1 % (0.1-2.0); Eosinophils # 1.4 K/mm3 (0.0-0.4); Eosinophils % 11.8 % (0.1-12.0); Hematocrit 48.3 % (42.0-52.0); Hemoglobin 16.4 g/dL (14.1-18.0); Lymphocytes # 3.2 K/mm3 (0.7-4.5); Mean Corpuscular HGB Conc 33.9 g/dL (31.8-35.4); Mean Corpuscular Hemoglobin 32.4 pg (27.0-31.2); Mean Corpuscular Volume 95.7 fl (80-94); Mean Platelet Volume 7.6 fl (7.4-10.4); Monocytes # 0.6 K/mm3 (0.1-1.0); Neutrophils # 6.6 K/mm3 (1.8-7.8); Neutrophils % 55.2 % (37.0-80.0); Platelet Count 318 K/mm3 (142-424); Red Blood Count 5.04 M/mm3 (4.60-6.20); Red Cell Distribution Width 13.5 % (11.5-17.5); White Blood Count 11.9 K/mm3 (4.8-10.8)
[2020-08-02 10:43] LABS: Troponin I < 0.01 ng/ml (0.00-0.034)
[2020-08-02 11:18] LABS: Alanine Aminotransferase 24 U/L (12-78); Albumin Level 4.4 g/dl (3.5-5.0); Alkaline Phosphatase 66 U/L (38-126); Anion Gap 10.7 mEq/L (5-15); Aspartate Amino Transferase 24 U/L (17-59); Bilirubin,Direct 0.4 mg/dl (0.0-0.4); Bilirubin,Indirect 0.1 mg/dL (0.0-0.9); Bilirubin,Total 0.5 mg/dl (0.2-1.3); Bilirubin,Unconjugated 0.1 mg/dL (0.0-1.1); Blood Urea Nitrogen 10 mg/dl (9-20); Calcium 9.4 mg/dl (8.4-10.2); Carbon Dioxide 27 mmol/L (22.0-30.0); Chloride 110 mmol/L (98-107); Chol/HDL Ratio 4.7 (1-3.5); Cholesterol 136 mg/dl (140-200); Estimated Glomerular Filt Rate 90 ml/min (>60); GFR (African American) 109 ML/MIN (>60); Glucose 96 mg/dl (74-100); HDL Cholesterol 29 mg/dl (40-60); Potassium 4.7 mmoL/L (3.5-5.1); Sodium 143 mmol/L (136-145); Total Protein,Serum 6.9 g/dl (6.3-8.2); Triglycerides 120 mg/dl (30-150); VLDL Cholesterol 24 mg/dL (0-40)
[2020-08-02 11:43] LABS: Free Thyroxine Index 3.4 ug/dL (5.93-13.13); T4 (Thyroxine) 10.4 ug/dl (5.53-11.0); Triiodothryronine (T3) Uptake 33 % (23.5-40.5)
[2020-08-02 11:57] LABS: Thyroid Stimulating Hormone 0.63 uIU/mL (0.465-4.68)
== END ==
PROVIDERS: Visit Provider Physician Assistant
DX: R06.02 Shortness of breath (principal); R06.00 Dyspnea, unspecified; R42 Dizziness and giddiness; I25.10 Atherosclerotic heart disease of native coronary artery without angina pectoris; E78.2 Mixed hyperlipidemia; I10 Essential (primary) hypertension; J44.9 Chronic obstructive pulmonary disease, unspecified; F17.200 Nicotine dependence, unspecified, uncomplicated; Z95.0 Presence of cardiac pacemaker
CPT/HCPCS: 36415; 71046; 80048; 80061; 80076; 84436; 84443; 84479; 84484; 85025

== ENCOUNTER → 2020-08-18 09:22 | Outpatient (CLI) | payer MEDICAID, SELFPAY ==
--- NOTE | 2020-08-18 09:23 | CA_ITS ---
APPROVED REPORT EXAM: Comprehensive 2D, Doppler, and color-flow Echocardiogram Tile Power Shear Operator: Ritu Boyer RVT Ht: 6 ft 0 in Wt: 213lbs BSA: 2.19 BP: 121/71 mmHg Indications: SOA,DIZZINESS,PACER,CAD,MANAV,GERD,SMOKER,COPD,HTN,HLD 2D Dimensions LVOT 2.34 cm (M/F) 1.5-2.5 LA Volume 43.20 mL LA Volume Index 19.72 mL/m2 (M/F) 16-34 M-Mode Dimensions RVDd 2.70 cm (0.9-2.6) LA Diam 4.00 cm (1.9-4.0) LVDd 5.31 cm (3.5-5.7) Ao Diam 3.13 cm (2.0-3.7) LVDs 3.42 cm (3.5-5.7) IVSd 0.93 cm (0.6-1.1) PWd 0.76 cm (0.6-1.1) EF (Teich) 64.60% FS 35.60% EDV (Teich) 135.90 mL TAPSE 2.22 (<1.7) ESV (Teich) 48.10 mL LV Diastology E Decel Time 253.00 (160-240 msec) E/A Ratio 1.0 MED E' 7.10 (< 7 cm/sec) E'/MED E' Ratio 8.27 (>14) LAT E' 11.60 (<10 cm/sec) E/LAT E' Ratio 5.06 (>14) Aortic Valve AO Peak GR. 7.20 mmHg Mitral Valve MV E Max Clay. 59.00 (40-130 cm/s) MV A Velocity 61.00 (40-130 cm/s) E/A Ratio 0.96 MV Decel. Time 253.00 (160-240 ms) MV PHT 74.00 ms Pulmonary Valve PV Peak Velocity 79.00 (50-150 cm/s) Tricuspid Valve TR P. Velocity 182.00 cm/s RAP Estimate 10.00 mmHg RVSP 23.20 mmHg Left Ventricle Atrium is mildly enlarged, left ventricle is normal size, there is no concentric left ventricular hypertrophy, visually estimated ejection fraction 50% with no regional wall motion abnormality, diastolic parameters are inconclusive. Right Ventricle Right atrium and right ventricle are normal size and contractility, there is pacemaker lead seen right ventricle. Aortic Valve Aortic valve is minimally thickened and fibrosed, there is no aortic stenosis or aortic insufficiency. Mitral Valve Mitral valve is grossly normal, there is trace mitral regurgitation. Tricuspid Valve Tricuspid grossly normal, there is trace tricuspid regurgitation. Pulmonic Valve Pulmonic valve is poorly visualized. Great Vessels Aortic root is normal size. Pericardium No significant pericardial effusion noted. Conclusion 1. Normal left ventricular size, visually estimated ejection fraction 50% with no regional wall motion abnormality. Diastolic parameters are inconclusive. 2. Trace mitral and tricuspid regurgitation. 3. No significant pericardial effusion noted. Electronically signed by : Geovany Scanlon, 08/18/2020 13:53:58
== END ==
PROVIDERS: PCP Emergency Medicine; Visit Provider Physician Assistant
DX: R06.02 Shortness of breath (principal); Z95.0 Presence of cardiac pacemaker
CPT/HCPCS: 93306

== ENCOUNTER 2021-04-08 15:33 | Emergency (ER) | payer MEDICAID, SELFPAY ==
[2021-04-08 16:40] VITALS: BP 131/76; PULSE 76; RESP 19; TEMP 37; O2SAT 98; BMI 26.4
--- NOTE | 2021-04-08 17:13 | HMH.EDUTC ---
[facility] Disposition Clinical Impression: Otitis media Qualifiers: Otitis media type: unspecified Laterality: left Qualified Code(s): H66.92 - Otitis media, unspecified, left ear Disposition: Home, Self-Care Condition on Discharge: Good Instructions: Ear Infections (Alternative Therapy), Middle Ear Infection, Amoxicillin and Clavulanic Acid Additional Instructions: Take medication as prescribed Follow up with Family Doctor if no improvement or any worsening of symptoms Return if needed Straight to ER if any life threatening symptoms Prescriptions: Amoxicillin/Potassium Clav [Augmentin 875-125 Tablet] 1 tab PO Q12H 10 Days #20 tab Transmission Status: Pending to [id number] predniSONE [Prednisone 20mg Tab] 20 mg PO BID 5 Days #10 tab Transmission Status: Pending to [facility] Referrals: Dick Higuera MD [Primary Care Provider] - As needed Time of Disposition: 17:27 Medical Decision Making - Collin Inquiry Pt receiving controlled substance: No Collin was queried for this patient: No Vital Signs: 04/08/21 16:40 Temperature 98.6 F Temperature Source Oral Pulse Rate [Right Brachial] 76 Respiratory Rate 19 Blood Pressure [Right Arm] 131/76 Blood Pressure Mean [Right Arm] 94 Blood Pressure Source [Right Arm] Automatic Cuff Blood Pressure Position [Right Arm] Sitting 02 Sat by Pulse Oximetry 98 Oxygen Delivery Method Room Air [facility] HPI - General Stated complaint: cant hear in L ear Time Seen by Provider: 04/08/21 17:13 Mode of Arrival: Ambulatory Source of Information: Patient Limitations: No Limitations Description of Symptoms (Recalled from Triage Doc. by RN): PATIENT C/O DECREASED HEARING IN LEFT EAR X 1 WEEK HEENT Symptoms (Recalled from RN notes): Yes Resp Symptoms (Recalled from RN notes): No Skin Symptoms (Recalled from RN notes): No MS Symptoms (Recalled from RN notes): No Functional Status (Recalled from RN notes): WNL - History of Present Illness Provider Complaint: Patient state that he has been having pressure like feeling in his sinuses for a few weeks but last week he noticed he was having pressure like feeling in his left ear with decreased hearing States that today he is still having pressure and pain and feels like he cannot hear well thinks he may have an infection - Related Data Home Medications Medication Instructions Recorded Confirmed aspirin 81 mg tablet,delayed 81 mg PO DAILY tab 06/06/20 08/02/20 release Previous Rx's Medication Instructions Recorded fluticasone propionate 50 1 spray INTRANASAL DAILY #9.9 ml 12/03/19 mcg/actuation nasal spray,suspension budesonide-formoterol HFA 160 2 puff INHALATION BID #10.2 g 06/23/20 mcg-4.5 mcg/actuation aerosol inhaler nitroglycerin 0.4 mg sublingual 0.4 mg SUBLINGUAL Q5MINP PRN #20 08/02/20 tablet tab bisoprolol fumarate 5 mg tablet See Rx Instructions .ROUTE 08/14/20 .COMPLEX #90 tab simvastatin 80 mg tablet See Rx Instructions .ROUTE 08/14/20 .COMPLEX #90 tab clopidogrel 75 mg tablet See Rx Instructions .ROUTE 10/17/20 .COMPLEX #90 tab amlodipine 5 mg tablet See Rx Instructions .ROUTE 12/20/20 .COMPLEX #90 tab ramipril 10 mg capsule See Rx Instructions .ROUTE 12/20/20 .COMPLEX #90 cap omeprazole 40 mg capsule,delayed See Rx Instructions .ROUTE 01/19/21 release .COMPLEX #90 cap albuterol sulfate 90 mcg/actuation 2 puff INHALATION Q6H PRN #1 each 02/07/21 aerosol inhaler Amoxicillin/Potassium Clav 1 tab PO Q12H 10 Days #20 tab 04/08/21 [Augmentin 875-125 Tablet] predniSONE [Prednisone 20mg 20 mg PO BID 5 Days #10 tab 04/08/21 Tab] Allergies Allergy/AdvReac Type Severity Reaction Status Date / Time metoprolol Allergy Low Verified 08/02/20 08:57 heartrate - Worker's Comp Is this a Worker's Comp case?: No [facility] History - Hepatitis A Screen Drug use history?: No High risk sexual behaviors?: No History of sexually transmitted infection?: No
[2021-04-08 17:28] VITALS: BP 131/76; PULSE 76; RESP 19; TEMP 37; O2SAT 98
== END 2021-04-08 17:33 | disposition home or self-care (01) ==
PROVIDERS: Emergency Provider Nurse Practitioner; PCP Emergency Medicine
DX: H66.92 Otitis media, unspecified, left ear (principal); J44.9 Chronic obstructive pulmonary disease, unspecified; I10 Essential (primary) hypertension; Z79.899 Other long term (current) drug therapy; I25.10 Atherosclerotic heart disease of native coronary artery without angina pectoris
CPT/HCPCS: 99202; G0463

== ENCOUNTER 2021-12-07 16:16 | Emergency (ER) | payer MEDICAID, SELFPAY ==
[2021-12-07 17:08] VITALS: BP 128/83; PULSE 71; RESP 18; TEMP 36.4; O2SAT 96; BMI 27.7
--- NOTE | 2021-12-07 17:09 | EXP.UTC ---
Discharge Plan Disposition Patient Disposition: Home, Self-Care Condition: Good Prescriptions Prescriptions: New cephalexin 500 mg capsule 500 mg PO QID Qty: 40 0RF mupirocin 2 % ointment 1 applic topical TID 7 Days Qty: 22 0RF No Action aspirin 81 mg tablet,delayed release (DR/EC) 81 mg PO DAILY nitroglycerin 0.4 mg tablet, sublingual 0.4 mg SUBLINGUAL Q5MINP PRN (Reason: Chest Pain) Qty: 20 0RF cefdinir 300 mg capsule 300 mg PO Q12H 10 Days Qty: 20 0RF prednisone 20 mg tablet 20 mg PO DAILY Qty: 18 0RF Rx Instructions: TID X 3 days, BID X 3 days, QD X 3 days fluticasone propionate [Flonase Allergy Relief] 50 mcg/actuation spray,suspension 1 spray INTRANASAL BID 10 Days Qty: 9.9 0RF Rx Instructions: administer into each nostril fluticasone propionate [Flonase Allergy Relief] 50 mcg/actuation spray,suspension 1 spray INTRANASAL DAILY Qty: 9.9 4RF Rx Instructions: administer into each nostril clopidogrel 75 mg tablet See Rx Instructions .ROUTE .COMPLEX Qty: 90 3RF Dose Instruction: Take 1 tablet by mouth once daily Rx Instructions: Take 1 tablet by mouth once daily budesonide-formoterol [Symbicort] 160-4.5 mcg/actuation HFA aerosol inhaler 2 puff INHALATION BID Qty: 10.2 4RF simvastatin 80 mg tablet See Rx Instructions .ROUTE .COMPLEX Qty: 90 0RF Dose Instruction: Take 1 tablet by mouth once daily Rx Instructions: Take 1 tablet by mouth once daily albuterol sulfate [ProAir HFA] 90 mcg/actuation HFA aerosol inhaler See Rx Instructions .ROUTE .COMPLEX Qty: 9 0RF Dose Instruction: INHALE 2 PUFFS BY MOUTH EVERY 6 HOURS NEEDED FOR SHORTNESS OF BREATH FOR WHEEZING Rx Instructions: INHALE 2 PUFFS BY MOUTH EVERY 6 HOURS NEEDED FOR SHORTNESS OF BREATH FOR WHEEZING amlodipine 5 mg tablet See Rx Instructions .ROUTE .COMPLEX Qty: 90 0RF Dose Instruction: Take 1 tablet by mouth once daily Rx Instructions: Take 1 tablet by mouth once daily levocetirizine 5 mg tablet See Rx Instructions .ROUTE .COMPLEX Qty: 90 0RF Dose Instruction: Take 1 tablet by mouth once daily Rx Instructions: Take 1 tablet by mouth once daily ramipril 10 mg capsule See Rx Instructions .ROUTE .COMPLEX Qty: 90 0RF Dose Instruction: Take 1 capsule by mouth once daily Rx Instructions: Take 1 capsule by mouth once daily bisoprolol fumarate 5 mg tablet See Rx Instructions .ROUTE .COMPLEX Qty: 90 1RF Dose Instruction: Take 1 tablet by mouth once daily Rx Instructions: Take 1 tablet by mouth once daily omeprazole 40 mg capsule,delayed release(DR/EC) See Rx Instructions .ROUTE .COMPLEX Qty: 90 3RF Dose Instruction: Take 1 capsule by mouth at bedtime Rx Instructions: Take 1 capsule by mouth at bedtime famotidine 20 mg tablet See Rx Instructions .ROUTE .COMPLEX Qty: 30 0RF Dose Instruction: Take 1 tablet by mouth once daily Rx Instructions: Take 1 tablet by mouth once daily Referrals Follow up/Referrals: Dick Higuera MD [Primary Care Provider] - See instructions Activity Restrictions/Add. Instructions Additional Instructions/Restrictions: Keep the wound clean and dry. Keep a dressing on it if you are going to be getting it dirty. Watch the for signs of infection, such as redness, swelling, drainage, fever. etc. Take tylenol or ibuprofen for pain. Follow up with your regular doctor. GO TO THE ER FOR ANY WORSENING SYMPTOMS OR CONCERNS. Clinical Impressions Clinical Impression: Acute foreign body of right hand, Need for Tdap vaccination Instructions Patient Instructions: DI for Removal of Foreign Body From Skin, Cephalexin, Mupirocin Discharge ED Provider: Brant Jensen [facility] General Stated complaint: SOMETHING IN RIGHT HAND Time Seen by Provider: 12/07/21 17:09 History of Pres
[2021-12-07 18:39] VITALS: BP 128/83; PULSE 71; RESP 18; TEMP 36.4
== END 2021-12-07 18:40 | disposition home or self-care (01) ==
PROVIDERS: Emergency Provider Nurse Practitioner Family; PCP Emergency Medicine
DX: S61.441A Puncture wound with foreign body of right hand, initial encounter (principal); Z23 Encounter for immunization; Y93.E6 Activity, residential relocation
CPT/HCPCS: 90471; 90714; 99213; G0463

== ENCOUNTER 2021-12-21 09:03 | Emergency (ER) | payer MEDICAID, SELFPAY ==
[2021-12-21 09:15] VITALS: BP 125/65; PULSE 98; RESP 22; TEMP 36.6; O2SAT 95; BMI 27.7
--- NOTE | 2021-12-21 09:15 | XR_ITS ---
FINAL REPORT CLINICAL HISTORY: rt foot and ankle pain and swelling FINDINGS: RIGHT FOOT 3 views of the right foot were obtained. There is a calcification seen adjacent to the lateral talus, favor chronic. The presumed chronic fracture is seen at the anterior process of the calcaneus. There are mild degenerative changes. Diffuse soft tissue swelling is noted. IMPRESSION: Chronic appearing fractures without definite acute bony abnormality. Diffuse soft tissue swelling. If indicated consider CT or MRI with for further evaluation. Reviewed, Interpreted and Dictated by Kvng Crabtree III, MD Transcribed by Nelly Jefferson Authenticated and . [facility]
--- NOTE | 2021-12-21 09:15 | XR_ITS ---
FINAL REPORT CLINICAL HISTORY: right ankle pain/swelling FINDINGS: RIGHT ANKLE 3 views of the right ankle were obtained. There is a chronic appearing fracture of the anterior process of the calcaneus. No other bony abnormality is identified. The mortise is intact. Visualized joint spaces are normally aligned. Soft tissues are unremarkable. IMPRESSION: Chronic appearing fracture of the anterior process of the calcaneus. If indicated, consider CT or MRI for further evaluation. Reviewed, Interpreted and Dictated by Kvng Crabtree III, MD Transcribed by Nelly Jefferson Authenticated and [facility]
--- NOTE | 2021-12-21 10:51 | EXP.UTC ---
Discharge Plan Disposition Patient Disposition: Home, Self-Care Condition: Fair Prescriptions Prescriptions: No Action aspirin 81 mg tablet,delayed release (DR/EC) 81 mg PO DAILY nitroglycerin 0.4 mg tablet, sublingual 0.4 mg SUBLINGUAL Q5MINP PRN (Reason: Chest Pain) Qty: 20 0RF cefdinir 300 mg capsule 300 mg PO Q12H 10 Days Qty: 20 0RF prednisone 20 mg tablet 20 mg PO DAILY Qty: 18 0RF Rx Instructions: TID X 3 days, BID X 3 days, QD X 3 days fluticasone propionate [Flonase Allergy Relief] 50 mcg/actuation spray,suspension 1 spray INTRANASAL BID 10 Days Qty: 9.9 0RF Rx Instructions: administer into each nostril fluticasone propionate [Flonase Allergy Relief] 50 mcg/actuation spray,suspension 1 spray INTRANASAL DAILY Qty: 9.9 4RF Rx Instructions: administer into each nostril clopidogrel 75 mg tablet See Rx Instructions .ROUTE .COMPLEX Qty: 90 3RF Dose Instruction: Take 1 tablet by mouth once daily Rx Instructions: Take 1 tablet by mouth once daily budesonide-formoterol [Symbicort] 160-4.5 mcg/actuation HFA aerosol inhaler 2 puff INHALATION BID Qty: 10.2 4RF albuterol sulfate [ProAir HFA] 90 mcg/actuation HFA aerosol inhaler See Rx Instructions .ROUTE .COMPLEX Qty: 9 0RF Dose Instruction: INHALE 2 PUFFS BY MOUTH EVERY 6 HOURS NEEDED FOR SHORTNESS OF BREATH FOR WHEEZING Rx Instructions: INHALE 2 PUFFS BY MOUTH EVERY 6 HOURS NEEDED FOR SHORTNESS OF BREATH FOR WHEEZING amlodipine 5 mg tablet See Rx Instructions .ROUTE .COMPLEX Qty: 90 0RF Dose Instruction: Take 1 tablet by mouth once daily Rx Instructions: Take 1 tablet by mouth once daily levocetirizine 5 mg tablet See Rx Instructions .ROUTE .COMPLEX Qty: 90 0RF Dose Instruction: Take 1 tablet by mouth once daily Rx Instructions: Take 1 tablet by mouth once daily ramipril 10 mg capsule See Rx Instructions .ROUTE .COMPLEX Qty: 90 0RF Dose Instruction: Take 1 capsule by mouth once daily Rx Instructions: Take 1 capsule by mouth once daily bisoprolol fumarate 5 mg tablet See Rx Instructions .ROUTE .COMPLEX Qty: 90 1RF Dose Instruction: Take 1 tablet by mouth once daily Rx Instructions: Take 1 tablet by mouth once daily omeprazole 40 mg capsule,delayed release(DR/EC) See Rx Instructions .ROUTE .COMPLEX Qty: 90 3RF Dose Instruction: Take 1 capsule by mouth at bedtime Rx Instructions: Take 1 capsule by mouth at bedtime simvastatin 80 mg tablet See Rx Instructions .ROUTE .COMPLEX Qty: 90 0RF Dose Instruction: Take 1 tablet by mouth once daily Rx Instructions: Take 1 tablet by mouth once daily famotidine 20 mg tablet See Rx Instructions .ROUTE .COMPLEX Qty: 30 0RF Dose Instruction: Take 1 tablet by mouth once daily Rx Instructions: Take 1 tablet by mouth once daily cephalexin 500 mg capsule 500 mg PO QID Qty: 40 0RF mupirocin 2 % ointment 1 applic topical TID 7 Days Qty: 22 0RF Referrals Follow up/Referrals: Dick Higuera MD [Primary Care Provider] - See instructions Claudette Grimm DPM [Staff Physician] - See instructions Activity Restrictions/Add. Instructions Additional Instructions/Restrictions: Call Dr Grimm for follow up appointment next week No acute fracture but concern for ligament tear Keep foot/ankle elevated, ice for 20 minutes several times a day Wear walking boot when weight bearing Clinical Impressions Clinical Impression: Right ankle sprain Instructions Patient Instructions: DI for Ankle Sprain Discharge ED Provider: Palak Dey [facility] General Stated complaint: Right Ankle twisted Mode of Arrival: Ambulatory Source of Information: Patient Limitations: No Limitations Time Seen by Provider: 12/21/21 10:01 Description of Symptoms (Recalled from Triage Doc. by RN): C/O rt ankle pain si
[2021-12-21 11:10] VITALS: BP 125/65; PULSE 98; RESP 22; TEMP 36.6; O2SAT 95
== END 2021-12-21 11:13 | disposition home or self-care (01) ==
PROVIDERS: Emergency Provider Physician Assistant; PCP Emergency Medicine
DX: S93.401A Sprain of unspecified ligament of right ankle, initial encounter (principal); W18.49XA Other slipping, tripping and stumbling without falling, initial encounter; Z87.39 Personal history of other diseases of the musculoskeletal system and connective tissue
CPT/HCPCS: 73610; 73630; 99212; G0463

== ENCOUNTER 2023-08-27 14:09 | Emergency (ER) | payer OTHER, SELFPAY ==
[2023-08-27 14:11] VITALS: BP 123/73; PULSE 68; RESP 18; TEMP 36.7; O2SAT 97; BMI 27.7
--- NOTE | 2023-08-27 14:22 | ED_ITS ---
<Statement entered by Khalida Calhoun MD - 08/27/23 15:11> I was consulted by the AARON, and we discussed the complexity of the problems being addressed. I approved the treatment and management plan for this patient's care in the emergency department, thus performing a substantive portion of the medical decision making. Khalida Calhoun MD, GREER, FACEP Discharge Plan Disposition Patient Disposition: Home, Self-Care Condition: Good Prescriptions Prescriptions: No Action aspirin 81 mg tablet,delayed release (DR/EC) 81 mg PO DAILY nitroglycerin 0.4 mg tablet, sublingual 0.4 mg SUBLINGUAL Q5MINP PRN (Reason: Chest Pain) Qty: 20 0RF cefdinir 300 mg capsule 300 mg PO Q12H 10 Days Qty: 20 0RF prednisone 20 mg tablet 20 mg PO DAILY Qty: 18 0RF Rx Instructions: TID X 3 days, BID X 3 days, QD X 3 days fluticasone propionate [Flonase Allergy Relief] 50 mcg/actuation spray ,suspension 1 spray INTRANASAL BID 10 Days Qty: 9.9 0RF Rx Instructions: administer into each nostril fluticasone propionate [Flonase Allergy Relief] 50 mcg/actuation spray,suspension 1 spray INTRANASAL DAILY Qty: 9.9 4RF Rx Instructions: administer into each nostril clopidogrel 75 mg tablet See Rx Instructions .ROUTE .COMPLEX Qty: 90 3RF Dose Instruction: Take 1 tablet by mouth once daily Rx Instructions: Take 1 tablet by mouth once daily budesonide-formoterol [Symbicort] 160-4.5 mcg/actuation HFA aerosol inhaler 2 puff INHALATION BID Qty: 10.2 4RF albuterol sulfate [ProAir HFA] 90 mcg/actuation HFA aerosol inhaler See Rx Instructions .ROUTE .COMPLEX Qty: 9 0RF Dose Instruction: INHALE 2 PUFFS BY MOUTH EVERY 6 HOURS NEEDED FOR SHORTNESS OF BREATH FOR WHEEZING Rx Instructions: INHALE 2 PUFFS BY MOUTH EVERY 6 HOURS NEEDED FOR SHORTNESS OF BREATH FOR WHEEZING bisoprolol fumarate 5 mg tablet See Rx Instructions .ROUTE .COMPLEX Qty: 90 1RF Dose Instruction: Take 1 tablet by mouth once daily Rx Instructions: Take 1 tablet by mouth once daily omeprazole 40 mg capsule,delayed release(DR/EC) See Rx Instructions .ROUTE .COMPLEX Qty: 90 3RF Dose Instruction: Take 1 capsule by mouth at bedtime Rx Instructions: Take 1 capsule by mouth at bedtime simvastatin 80 mg tablet See Rx Instructions .ROUTE .COMPLEX Qty: 90 0RF Dose Instruction: Take 1 tablet by mouth once daily Rx Instructions: Take 1 tablet by mouth once daily ramipril 10 mg capsule See Rx Instructions .ROUTE .COMPLEX Qty: 90 0RF Dose Instruction: Take 1 capsule by mouth once daily Rx Instructions: Take 1 capsule by mouth once daily amlodipine 5 mg tablet See Rx Instructions .ROUTE .COMPLEX Qty: 90 0RF Dose Instruction: Take 1 tablet by mouth once daily Rx Instructions: Take 1 tablet by mouth once daily levocetirizine 5 mg tablet See Rx Instructions .ROUTE .COMPLEX Qty: 90 0RF Dose Instruction: Take 1 tablet by mouth once daily Rx Instructions: Take 1 tablet by mouth once daily famotidine 20 mg tablet See Rx Instructions .ROUTE .COMPLEX Qty: 90 1RF Dose Instruction: Take 1 tablet by mouth once daily Rx Instructions: Take 1 tablet by mouth once daily cephalexin 500 mg capsule 500 mg PO QID Qty: 40 0RF mupirocin 2 % ointment 1 applic topical TID 7 Days Qty: 22 0RF Referrals Follow up/Referrals: Walter Manuel DO [Staff Physician] - See instructions Arely Dey APRN [Primary Care Provider] - See instructions Activity Restrictions/Add. Instructions Additional Instructions/Restrictions: Please call Dr. Manuel's office in the morning to set up your appointment. Please keep your arm in your sling and splint on. You may take Tylenol alternating with Motrin for discomfort. Return to ER for any worsening signs or symptoms including cold hand loss of sensation increasing pain increasing swelling. Clinical Impressions Clinical Impression: Biceps tendon tear Discharge ED Provider: Khalida Calhoun General Adult HPI General Chief complaint: Extremity Injury, Upper Stated complaint: AO 08/27/23 11:30, inj to right arm Time Seen by Provider: 08/27/23 14:22 History of Present Illness HPI narrative: Patient presents for evaluation of a right upper extremity injury. 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 He denies numbness or tingling and is neurovascular intact distally. Related Data Home Medications Medication Instructions Recorded Confirmed aspirin 81 mg tablet,delayed 81 mg PO DAILY Blood thinner 06/06/20 07/06/21 release Previous Rx's Medication Instructions Recorded fluticasone propionate 50 1 spray intranasal DAILY #9.9 mL 12/03/19 mcg/actuation nasal spray,suspension (Flonase Allergy Relief) nitroglycerin 0.4 mg sublingual 0.4 mg sublingual Q5MINP PRN Chest 08/02/20 tablet Pain #20 tabs clopidogrel 75 mg tablet See Rx Instructions .Route 10/17/20 .COMPLEX #90 tabs cefdinir 300 mg capsule 300 mg PO Q12H 10 days #20 caps 04/17/21 fluticasone propionate 50 1 spray intranasal BID 10 days 04/17/21 mcg/actuation nasal #9.9 grams spray,suspension (Flonase Allergy Relief) prednisone 20 mg tablet 20 mg PO DAILY #18 tabs 04/17/21 budesonide-formoterol HFA 160 2 puff inhalation BID #10.2 grams 07/13/21 mcg-4.5 mcg/actuation aerosol inhaler (Symbicort) ProAir HFA 90 mcg/actuation See Rx Instructions .Route 10/05/21 aerosol inhaler (albuterol sulfate) .COMPLEX #9 grams bisoprolol fumarate 5 mg tablet See Rx Instructions .Route 10/05/21 .COMPLEX #90 tabs omeprazole 40 mg capsule,delayed See Rx Instructions .Route 10/22/21 release .COMPLEX #90 caps cephalexin 500 mg capsule 500 mg PO QID #40 caps 12/07/21 mupirocin 2 % topical ointment 1 applic topical TID 7 days #22 12/07/21 grams simvastatin 80 mg tablet See Rx Instructions .Route 12/17/21 .COMPLEX #90 tabs amlodipine 5 mg tablet See Rx Instructions .Route 01/10/22 .COMPLEX #90 tabs levocetirizine 5 mg tablet See Rx Instructions .Route 01/10/22 .COMPLEX #90 tabs ramipril 10 mg capsule See Rx Instructions .Route 01/10/22 .COMPLEX #90 caps famotidine 20 mg tablet See Rx Instructions .Route 02/21/22 .COMPLEX #90 tabs Allergies Allergy/AdvReac Type Severity Reaction Status Date / Time metoprolol Allergy Low Verified 07/06/21 11:55 heartrate [facility] Disclaimer: The information contained in this section may have been updated after the patient was seen, as this information can be updated by other users. 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 Smoker Vitamin D deficiency Social History Smoking Status: Current every day smoker tobacco type: cigarettes packs per day: 1 second hand exposure: Yes alcohol intake: never substance use type: denies use current occupational status: unemployed Travel in the last 8 weeks: None household members: spouse housing: house current occupational exposures/hazards: Yes caffeine: Yes ROS Obtained: Yes Systems reviewed as appropriate & no additional complaints except as documented Physical Exam General General appearance: alert and in no apparent distress Respiratory Respiratory exam: Present normal lung sounds bilaterally Cardiovascular Cardiovascular exam: Present regular rate and normal rhythm Expanded Upper Extremity Exam Right: Arm exam: Present normal inspection and full ROM; Absent tenderness Elbow exam: Present tenderness and pain w/ pronation/supination; Absent normal inspection or full ROM Forearm/Wrist exam: Present normal inspection and full ROM; Absent tenderness Hand exam: Present normal inspection and full ROM; Absent tenderness Neurological Exam Neurological exam: Present alert and oriented X3 Medical Decision Making Medical Records Medical records reviewed: Yes I reviewed the patient's medical records. Collin Inquiry Pt receiving controlled substance: No Vital Signs: 08/27/23 14:11 Temperature 98.0 F Temperature Source Oral Pulse Rate [Radial] 68 Respiratory Rate 18 Blood Pressure [Left Arm] 123/73 Blood Pressure Mean [Left Arm] 89 Blood Pressure Source [Left Arm] Automatic Cuff Blood Pressure Position [Left Arm] Sitting 02 Sat by Pulse Oximetry 97 Orders (Tests/Meds): ED MEDICATIONS Discontinued Medications Generic Name Dose Route Start Last Admin Trade Name Freq PRN Reason Stop Dose Admin Acetaminophen 1,000 mg 08/27/23 14:39 Acetaminophen 500mg Tab PO 08/27/23 14:40 ONCE ONE Ibuprofen 800 mg 08/27/23 14:39 Ibuprofen 400 Mg Tablet PO 08/27/23 14:40 ONCE ONE Oxycodone HCl 5 mg 08/27/23 14:39 Oxycodone 5mg Immediate Release Tablet PO 08/27/23 14:40 ONCE ONE ORDERS Category Date Time Status Elbow XR right 2 views [XR elbow RT 2V] Stat Exams 08/27/23 14:38 Ordered Forearm XR right 2 views [XR forearm RT 2V] Stat Exams 08/27/23 14:38 Ordered Humerus XR right [XR humerus RT] Stat Exams 08/27/23 14:38 Ordered Medical Decision Narrative: In summary patient is a 53-year-old male who presents to the emergency depart [facility] for evaluation of right upper extremity injury. Patient is hemodynamically stable upon arrival, afebrile. Physical exam is remarkable for tenderness to palpation at the medial biceps insertion along with muscle retraction of the biceps. Patient has pain with pronation supination flexion and extension and all are partially intact. The distal extremity is neurovascularly intact and motor and sensory intact. Compartments are soft.. Differential diagnosis includes muscle tear versus tendinous tear. Initial workup will be conducted with plain film x-rays. Initial interventions include acetaminophen Motrin oxycodone. Initial workup reviewed by me and his plain film x-ray showed no fracture.. Upon repeat evaluation I had interactive discussion with the patient regarding his findings and the need for further workup. Given this I had interactive discussion with Dr. Manuel of orthopedics who recommended a posterior splint and sling with follow-up in his office this week Critical Care Critical Care Time Critical Care Time: No
--- NOTE | 2023-08-27 14:23 | PC.NURSE ---
LONNIE STEIN AT BEDSIDE
--- NOTE | 2023-08-27 14:38 | XR_ITS ---
FINAL REPORT CLINICAL HISTORY: Trauma.. Right upper arm pain COMPARISON: None FINDINGS: Two views of the right humerus show no evidence of an acute, displaced fracture or dislocation of the visualized bony architecture. The joint spaces appear normal. IMPRESSION: Unremarkable exam. Reviewed, Interpreted and Dictated by Kyleigh King MD Transcribed by Lluvia Valverde Authenticated and [facility]
--- NOTE | 2023-08-27 14:38 | XR_ITS ---
FINAL REPORT CLINICAL HISTORY: Trauma.. Right forearm pain COMPARISON: None FINDINGS: 3 views of the right forearm were obtained. There is an ulnar styloid process fracture of questionable age. The radius is intact. The elbow joint is not well visualized. There are no soft tissue abnormalities. IMPRESSION: Ulnar styloid process fracture of questionable age. Reviewed, Interpreted and Dictated by Kyleigh King MD Transcribed by Lluvia Valverde Authenticated and [facility]
--- NOTE | 2023-08-27 14:38 | XR_ITS ---
FINAL REPORT CLINICAL HISTORY: Trauma.. Right elbow pain COMPARISON: None FINDINGS: 3 views of the elbow were obtained. Assessment is suboptimal due to fixed flexed position of the elbow joint from fiberglass splint. The lateral view shows a joint effusion. There is no obvious fracture. The soft tissues are unremarkable. IMPRESSION: Suboptimal exam. Joint effusion. Reviewed, Interpreted and Dictated by Kyleigh King MD Transcribed by Lluvia Valverde Authenticated and [facility]
[2023-08-27] MEDS: ACETAMINOPHEN 500MG TAB 1000 MG PO (14:48)
[2023-08-27] MEDS: IBUPROFEN 400 MG TABLET 800 MG PO (14:48)
[2023-08-27] MEDS: OXYCODONE 5MG IMMEDIATE RELEASE TABLET 5 MG PO (14:49)
--- NOTE | 2023-08-27 15:01 | PC.NURSE ---
RAD at BS
--- NOTE | 2023-08-27 15:05 | PC.NURSE ---
XR AT BEDSIDE
[2023-08-27 15:10] VITALS: BP 122/70; PULSE 70; RESP 18; TEMP 36.7; O2SAT 97
== END 2023-08-27 15:10 | disposition home or self-care (01) ==
PROVIDERS: Emergency Provider Student in an Organized Health Care Education/Training Program; PCP Nurse Practitioner; Referring Provider Nurse Practitioner Family
DX: S46.211A Strain of muscle, fascia and tendon of other parts of biceps, right arm, initial encounter (principal); X50.0XXA Overexertion from strenuous movement or load, initial encounter; F17.210 Nicotine dependence, cigarettes, uncomplicated; S52.611A Displaced fracture of right ulna styloid process, initial encounter for closed fracture
CPT/HCPCS: 73060; 73070; 73090; 99283

== ENCOUNTER 2023-10-28 11:36 | Outpatient (CLI) | payer OTHER, SELFPAY ==
--- NOTE | 2023-10-28 | CA_ITS ---
APPROVED REPORT Exam: Pharmacologic Technologist: Rosa Encinas, Ht: 6 ft 1 in Wt: 198 lbs BSA: 2.14 m2 HR: 60 bpm BP: 112/62 mmHg Medical History Medications: Amlodipine,,,,, Simvastatin,,,,, Pantoprazole,,,,, Ramipril,,,,, SyMBICORT,,,,, Albuterol,,,,, CloPIdogrel,,,,, BisOPROLOL Fumarate,,,,, Fluoxetine,,,,, Nitroglycerin,,,,, Levocetirizine,,,,, Cardiac Risk Factors: HTN, Hyperlipidemia, FHX of CAD, Smoking Stress Test Details Test: LEXISCAN HR Resting HR: 60 bpm Max Heart Rate (APMHR): 168 bpm Max HR Achieved: 88 bpm Target HR (85% APMHR): 143 bpm % of APMHR: 52 Recovery HR: 74 bpm BP Resting BP: 112/62 mmHg Max BP: 116/66 mmHg Recovery BP: 116.0/66.0 mmHg ECG Resting ECG: Normal sinus rhythm, non-specific T wave changes Stress ECG: No significant ST changes Arrhythmia: None Clinical Exercise duration: 04:01 min Highest Stage Achieved: Stress ECG Conclusion During lexiscan pt experinced dyspnea. No arrhythmias noted. No significant ST changes. Conclusion: EKG portion unrermarkable due to lexiscan infusion. Myoview images reported separately. Test Summary REST . . . . . . . Sitting REST 02:55 . . 60 . 112/ 62 . . Stage 1 . . . . . . . Myoview Injected Stage 1 01:00 . . 79 . . . . Stage 2 01:00 . . 86 . 105/ 60 . . Stage 3 01:00 . . 80 . 107/ 63 . . Stage 4 01:00 . . 74 . 112/ 70 . . Stage 4 01:01 . . 74 . 112/ 70 . Stop exercise at 04:01 RECOVERY 01:00 . . 80 . 113/ 67 . . RECOVERY 02:00 . . 74 . 116/ 66 . . RECOVERY 02:59 . . 72 . 98/ 64 . . Electronically signed by : Cheryl Mcclure MD 10/30/2023 11:20:28
--- NOTE | 2023-10-28 11:37 | NM_ITS ---
APPROVED REPORT Exam: Nuclear Stress Test Indication: chest pain..short of breath Patient Location: Outpatient Stress Tech: Rosa LITTLEJOHN Tech:Jenny Hoyt MIRANDAPaul RT(R)(N) Ht: 6 ft 1 in Wt: 201 lbs HR: 60 bpm BP: 112/62 mmHg BSA: 2.16 m2 TID: 1.16 BMI: 26.5 History: chest pain..short of breath Procedure: Patient received 0.4 mg of intravenous Lexiscan, resting heart rate 60 bpm, resting blood pressure 112/62 mmHg, with Lexiscan maximum heart rate achieved was 88 bpm which is 85 % of the maximum predicted heart rate and blood pressure was 116/66 mmHg. With Lexiscan, patient denied any complaint of chest pain. Cardiac Stress and Resting SPECT Images: Cardiac Stress and Resting SPECT images were obtained using technetium 99m Myoview 31.5 mCi stress and 10.30 mCi at rest. Technically difficult study due to significant diaphragmatic overlap with the inferior border of the LV wall. This may affect the diagnostic interpretation of the study findings. Resting and stress imaging in supine positions demonstrate a medium sized, moderate, fixed perfusion defect in the inferior LV wall. This is no longer visualized with prone stress imaging. Findings are suggestive of diaphragmatic attenuation. Gated imaging demonstrates normal global and regional LV systolic function. LVEF is calculated at 59%. Conclusion: Technically difficult study. Diaphragmatic attenuation is present. No evidence of fixed or reversible perfusion defects. Gated imaging demonstrates normal global and regional LV systolic function. LVEF is calculated at 59%. Electronically signed by : Cheryl Mcclure MD 10/30/2023 11:22:00
[2023-10-28] MEDS: REGADENOSON 0.4MG/5ML SYRINGE 0.4 MG IV (13:35)
[2023-10-28] MEDS: ISOTOPE MYOVIEW (PER STUDY) 1 DOSE IV (13:35)
[2023-10-28] MEDS: SODIUM CHLORIDE 0.9% 10ML SYR (RAD ONLY) 10 ML IV ×2 (13:35)
--- NOTE | 2023-10-28 13:56 | CA_ITS ---
APPROVED REPORT EXAM: Comprehensive 2D, Doppler, and color-flow Echocardiogram Automation Machine Builder: Ariadna Chan CRT Ht: 6 ft 1 in Wt: 198lbs BSA: 2.14 BP: 127/79 mmHg Indications: Chest Pain, COPD, Shortness of Breath, CAD, Hyperlipidemia, Hypertension/HDD, smoker, stent,pacer 2D Dimensions Left Atrium 3.46 cm LVEF (Leone's) 33.50 % LVOT 2.09 cm (M/F) 1.5-2.5 LV Volume 119.90 mL LA Volume 33.70 mL LA Volume Index 15.70 mL/m2 (M/F) 16-34 EF AP4 51.60 % EF AP2 20.5 % EF BP 33.5 % GL Strain -15.0 % M-Mode Dimensions RVDd 3.25 cm (0.9-2.6) LVDd 5.78 cm (3.5-5.7) Ao Diam 4.41 cm (2.0-3.7) LVDs 4.18 cm (3.5-5.7) IVSd 1.18 cm (0.6-1.1) PWd 0.82 cm (0.6-1.1) EF (Teich) 53.00% FS 27.70% EDV (Teich) 165.20 mL TAPSE 2.47 (<1.7) ESV (Teich) 77.70 mL LV Diastology E Decel Time 208 (160-240 msec) E/A Ratio 1.07 MED E' 7.9 (>= 7 cm/sec) MED A' 10.20 cm/s E'/MED E' Ratio 7.54 (<= 14) LAT E' 12.2 (>= 10 cm/sec) LAT A' 13.70 cm/s E/LAT E' Ratio 4.89 (<= 14) Aortic Valve AoV Peak Clay. 151.0 (50-130 cm/s) AO Peak GR. 9.20 mmHg Mitral Valve MV E Max Clay. 60.0 (40-130 cm/s) MV A Velocity 56.0 (40-130 cm/s) E/A Ratio 1.07 MV Decel. Time 208 (160-240 ms) Tricuspid Valve TR P. Velocity 279.00 cm/s RAP Estimate 10.00 mmHg RVSP 41.20 mmHg Left Ventricle The left ventricle is normal size. The left ventricular systolic function is normal. The left ventricular ejection fraction is within the normal range. There is normal left ventricular wall thickness. There is normal LV segmental wall motion. The left ventricular diastolic function is normal. LVEF of 55%. Right Ventricle Right ventricle is mildly dilated. The right ventricular systolic function is normal. There is a device lead present in the right ventricle. Atria The left atrium size is normal. The right atrium size is normal. There is no Doppler evidence of interatrial shunt. Aortic Valve The aortic valve opens well. There is no aortic valvular stenosis. No aortic regurgitation is present. Mitral Valve The mitral valve is normal in structure. No evidence of mitral valve stenosis. There is no mitral valve regurgitation noted. Tricuspid Valve The tricuspid valve leaflets are thin and pliable. Mild tricuspid regurgitation. RVSP is 20-25 mmHg. Pulmonic Valve The pulmonary valve is normal in structure. Trace pulmonic regurgitation. Great Vessels The aortic root is normal in size. The ascending aorta is not well-visualized. IVC is normal in size and collapses >50% with inspiration. Pericardium There is no pericardial effusion. Other Information Study Quality: Fair Conclusion Normal biventricular systolic function. Mild RV dilation. Mild TR. Electronically signed by : Cheryl Mcclure MD 11/03/2023 22:52:12
== END 2023-10-28 23:59 | disposition home or self-care (01) ==
LOC: RAD 11:37
PROVIDERS: PCP Physician Assistant; Visit Provider Physician Assistant
DX: I11.9 Hypertensive heart disease without heart failure (principal); I25.119 Atherosclerotic heart disease of native coronary artery with unspecified angina pectoris; R06.00 Dyspnea, unspecified; R94.31 Abnormal electrocardiogram [ECG] [EKG]; R00.1 Bradycardia, unspecified; E78.2 Mixed hyperlipidemia; Z95.0 Presence of cardiac pacemaker; Z95.5 Presence of coronary angioplasty implant and graft; F17.210 Nicotine dependence, cigarettes, uncomplicated
CPT/HCPCS: 78452; 93017; 93018; 93306; A9502; J2785

== ENCOUNTER 2023-12-31 12:46 | Emergency (ER) | payer OTHER, SELFPAY ==
--- NOTE | 2023-12-31 12:50 | XR_ITS ---
PROCEDURE INFORMATION: Exam: XR Left Hand Exam date and time: 12/31/2023 12:49 PM Age: 53 years old Clinical indication: Pain; Finger(s); Left; Additional info: Pain in left thumb TECHNIQUE: Imaging protocol: Radiologic exam of the left hand. Views: 3 or more views. COMPARISON: No relevant prior studies available. FINDINGS: Bones/joints: There is chronic deformity of the neck of the 5th metacarpal, likely due to remote prior trauma. Soft tissues: Normal. IMPRESSION: No acute process in the left hand.
[2023-12-31 12:58] VITALS: BP 122/74; PULSE 61; RESP 20; TEMP 36.6; O2SAT 97; BMI 25.3
--- NOTE | 2023-12-31 13:16 | ED_ITS ---
Discharge Plan Disposition Patient Disposition: Home, Self-Care Condition: Good Prescriptions Prescriptions: No Action nitroglycerin 0.4 mg tablet, sublingual 0.4 mg SUBLINGUAL Q5MINP PRN (Reason: Chest Pain) Qty: 20 0RF fluticasone propionate [Flonase Allergy Relief] 50 mcg/actuation spray,suspension 1 spray INTRANASAL DAILY Qty: 9.9 4RF Rx Instructions: administer into each nostril fluoxetine 40 mg capsule 40 mg PO DAILY Patient Comments: Take 1 capsule every day by oral route. pantoprazole 40 mg tablet,delayed release (DR/EC) 40 mg PO ONCE Patient Comments: Take 1 tablet every day by oral route. clopidogrel 75 mg tablet See Rx Instructions .ROUTE .COMPLEX Qty: 90 3RF Dose Instruction: Take 1 tablet by mouth once daily Rx Instructions: Take 1 tablet by mouth once daily budesonide-formoterol [Symbicort] 160-4.5 mcg/actuation HFA aerosol inhaler 2 puff INHALATION BID Qty: 10.2 4RF albuterol sulfate [ProAir HFA] 90 mcg/actuation HFA aerosol inhaler See Rx Instructions .ROUTE .COMPLEX Qty: 9 0RF Dose Instruction: INHALE 2 PUFFS BY MOUTH EVERY 6 HOURS NEEDED FOR SHORTNESS OF BREATH FOR WHEEZING Rx Instructions: INHALE 2 PUFFS BY MOUTH EVERY 6 HOURS NEEDED FOR SHORTNESS OF BREATH FOR WHEEZING bisoprolol fumarate 5 mg tablet See Rx Instructions .ROUTE .COMPLEX Qty: 90 1RF Dose Instruction: Take 1 tablet by mouth once daily Rx Instructions: Take 1 tablet by mouth once daily simvastatin 80 mg tablet See Rx Instructions .ROUTE .COMPLEX Qty: 90 0RF Dose Instruction: Take 1 tablet by mouth once daily Rx Instructions: Take 1 tablet by mouth once daily ramipril 10 mg capsule See Rx Instructions .ROUTE .COMPLEX Qty: 90 0RF Dose Instruction: Take 1 capsule by mouth once daily Rx Instructions: Take 1 capsule by mouth once daily amlodipine 5 mg tablet See Rx Instructions .ROUTE .COMPLEX Qty: 90 0RF Dose Instruction: Take 1 tablet by mouth once daily Rx Instructions: Take 1 tablet by mouth once daily levocetirizine 5 mg tablet See Rx Instructions .ROUTE .COMPLEX Qty: 90 0RF Dose Instruction: Take 1 tablet by mouth once daily Rx Instructions: Take 1 tablet by mouth once daily Referrals Follow up/Referrals: Arely Dey APRN [Primary Care Provider] - See instructions Activity Restrictions/Add. Instructions Additional Instructions/Restrictions: *RICE, Rest the extremity, Ice 15-20 minutes 3-4 times daily, Compress- wear the blas wrap as discussed as much as possible to help reduce swelling and pain, Elevate the extremity when at rest *Blas wrap is for support and help control swelling, use it except in the shower. Be sure that is not to tight but not to loose either *Elevate when resting? *Ibuprofen 600-800mg every 6-8 hours as needed for pain an inflammation. If need something more can take Tylenol in between doses of Ibuprofen to help Immediately follow up with your family doctor for new or worsening of symptoms, or no noticeable improvement over the next 3-5 days Clinical Impressions Clinical Impression: Contusion of hand Instructions Patient Instructions: Ibuprofen, How To Perform RICE (Rest, Ice, Compress, Elevate) Print Language Print Language: Romanian Discharge ED Provider: Ava Barahona [facility] [place] HPI General Stated complaint: AO 12/28/23, inj left thumb Mode of Arrival: Ambulatory Source of Information: Patient Time Seen by Provider: 12/31/23 13:17 Description of Symptoms (Recalled from Triage Doc. 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 and not sure if he may have hit his hand or not but started about 3 days ago with pain in the base of his left thumb States initially it looked bruised but that is better and not it is sore and hurts when he moves it Related Data Home Medications ?Medication ?Instructions ?Recorded ?Confirmed fluoxetine 40 mg capsule 40 mg PO DAILY 10/20/23 12/31/23 pantoprazole 40 mg tablet,delayed 40 mg PO ONCE 10/20/23 12/31/23 release Previous Rx's ?Medication ?Instructions ?Recorded fluticasone propionate 50 1 spray intranasal DAILY #9.9 mL 12/03/19 mcg/actuation nasal spray,suspension (Flonase Allergy Relief) nitroglycerin 0.4 mg sublingual 0.4 mg sublingual Q5MINP PRN Chest 08/02/20 tablet Pain #20 tabs clopidogrel 75 mg tablet See Rx Instructions .Route 10/17/20 .COMPLEX #90 tabs budesonide-formoterol HFA 160 2 puff inhalation BID #10.2 grams 07/13/21 mcg-4.5 mcg/actuation aerosol inhaler (Symbicort) ProAir HFA 90 mcg/actuation See Rx Instructions .Route 10/05/21 aerosol inhaler (albuterol sulfate) .COMPLEX #9 grams bisoprolol fumarate 5 mg tablet See Rx Instructions .Route 10/05/21 .COMPLEX #90 tabs simvastatin 80 mg tablet See Rx Instructions .Route 12/17/21 .COMPLEX #90 tabs amlodipine 5 mg tablet See Rx Instructions .Route 01/10/22 .COMPLEX #90 tabs levocetirizine 5 mg tablet See Rx Instructions .Route 01/10/22 .COMPLEX #90 tabs ramipril 10 mg capsule See Rx Instructions .Route 01/10/22 .COMPLEX #90 caps Allergies Allergy/AdvReac Type Severity Reaction Status Date / Time metoprolol Allergy Low Verified 10/20/23 10:54 heartrate Worker's Comp Is this a Worker's Comp case?: No [facility] Disclaimer: The information contained in this section may have been updated after the patient was seen, as this information can be updated by other users. Medical History Cardiac pacemaker in situ Restless sleeper Resting tremor Depression Vitamin D deficiency Anxiety COPD (chronic obstructive pulmonary disease) COPD exacerbation Smoker Dyspnea Presence of stent in LAD coronary artery AMI and stent of 99% blockage in 2010 Coronary artery disease Social History Smoking Status: Current every day smoker tobacco type: cigarettes packs per day: 1 second hand exposure: Yes alcohol intake: never substance use type: denies use current occupational status: unemployed Travel in the last 8 weeks: None household members: spouse housing: house current occupational exposures/hazards: Yes caffeine: Yes ROS Obtained: Yes All systems reviewed & no additional complaints except as documented and Yes Systems reviewed as appropriate & no additional complaints except as documented Constitutional Constitutional: Reports system reviewed and no additional complaints, except as documented and Reports as per HPI ENT Ears, Nose, Mouth, and Throat: Reports system reviewed and no additional complaints, except as documented and Reports as per HPI Cardiovascular Cardiovascular: Reports system reviewed and no additional complaints, except as documented and Reports as per HPI Respiratory Respiratory: Reports system reviewed and no additional complaints, except as documented and Reports as per HPI Musculoskeletal Musculoskeletal: Reports system reviewed and no additional complaints, except as documented, Reports as per HPI and Reports other (pain in left thumb) Physical Exam General General appearance: alert and in no apparent distress ENT ENT exam: Present mucous membranes moist Respiratory Respiratory exam: Present normal lung sounds bilaterally; Absent respiratory distress or wheezes Cardiovascular Cardiovascular exam: Present regular rate, normal rhythm and normal heart sounds Expanded Upper Extremity Exam Left: Hand exam: Present tenderness; Absent swelling, abrasion, laceration, ecchymosis, dislocation or erythema Hand L/R front image: 2 1. other (reports tenderness, no bruising, no swelling no redness no open wounds noted) Vascular exam: Normal capillary refill and radial pulse Neurological Exam Neurological exam: Present alert, oriented X3 and normal gait Medical Decision Making Medical Records Screening: Per USPSTF and CDC recommendations, given the prevalence of disease in our region, it is our hospital?s policy to screen for HIV and viral Hepatitis for all patients aged 18 and over and those with ongoing risk factors. Collin Inquiry Pt receiving controlled substance: No Collin was queried for this patient: No Vital Signs: 12/31/23 12:58 Temperature 97.8 F Temperature Source Oral Pulse Rate [Left Radial] 61 Respiratory Rate 20 Blood Pressure [Left Arm] 122/74 Blood Pressure Mean [Left Arm] 90 02 Sat by Pulse Oximetry 97 Orders (Tests/Meds): ORDERS Category Date Time Status Hand XR left minimum 3 views [XR hand LT min 3V] Stat Exams 12/31/23 12:50 Taken Radiology Data #1: Image(s): Hand Image Reviewed: Yes I have reviewed radiologist's interpretation IMPRESSION: No acute process in the left hand.
[2023-12-31 13:47] VITALS: BP 122/74; PULSE 61; RESP 20; TEMP 36.6
== END 2023-12-31 13:50 | disposition home or self-care (01) ==
PROVIDERS: Emergency Provider Nurse Practitioner; PCP Nurse Practitioner
DX: S60.222A Contusion of left hand, initial encounter (principal); M79.642 Pain in left hand; X58.XXXA Exposure to other specified factors, initial encounter
CPT/HCPCS: 73130; 99212; G0381

== ENCOUNTER 2024-05-31 15:56 | Emergency (ER) | payer OTHER, SELFPAY ==
[2024-05-31 16:01] VITALS: BP 108/72; PULSE 63; RESP 18; TEMP 36.8; O2SAT 100; BMI 26.7
--- NOTE | 2024-05-31 16:11 | ED_ITS ---
<Statement entered by Khalida Calhoun MD - 05/31/24 23:11> I was consulted by the AARON, and we discussed the complexity of the problems being addressed. I approved the treatment and management plan for this patient's care in the emergency department, thus performing a substantive portion of the medical decision making. Khalida Calhoun MD, GREER, FACEP Discharge Plan Disposition Patient Disposition: Home, Self-Care Condition: Good Prescriptions Prescriptions: New ondansetron 4 mg tablet,disintegrating 4 mg PO QID PRN (Reason: nausea and vomiting) Qty: 10 0RF amoxicillin-pot clavulanate 875-125 mg tablet 1 tab PO BID Qty: 20 0RF No Action nitroglycerin 0.4 mg tablet, sublingual 0.4 mg SUBLINGUAL Q5MINP PRN (Reason: Chest Pain) Qty: 20 0RF fluticasone propionate [Flonase Allergy Relief] 50 mcg/actuation spray,suspension 1 spray INTRANASAL DAILY Qty: 9.9 4RF Rx Instructions: administer into each nostril fluoxetine 40 mg capsule 40 mg PO DAILY Patient Comments: Take 1 capsule every day by oral route. pantoprazole 40 mg tablet,delayed release (DR/EC) 40 mg PO ONCE Patient Comments: Take 1 tablet every day by oral route. clopidogrel 75 mg tablet See Rx Instructions .ROUTE .COMPLEX Qty: 90 3RF Dose Instruction: Take 1 tablet by mouth once daily Rx Instructions: Take 1 tablet by mouth once daily budesonide-formoterol [Symbicort] 160-4.5 mcg/actuation HFA aerosol inhaler 2 puff INHALATION BID Qty: 10.2 4RF albuterol sulfate [ProAir HFA] 90 mcg/actuation HFA aerosol inhaler See Rx Instructions .ROUTE .COMPLEX Qty: 9 0RF Dose Instruction: INHALE 2 PUFFS BY MOUTH EVERY 6 HOURS NEEDED FOR SHORTNESS OF BREATH FOR WHEEZING Rx Instructions: INHALE 2 PUFFS BY MOUTH EVERY 6 HOURS NEEDED FOR SHORTNESS OF BREATH FOR WHEEZING bisoprolol fumarate 5 mg tablet See Rx Instructions .ROUTE .COMPLEX Qty: 90 1RF Dose Instruction: Take 1 tablet by mouth once daily Rx Instructions: Take 1 tablet by mouth once daily simvastatin 80 mg tablet See Rx Instructions .ROUTE .COMPLEX Qty: 90 0RF Dose Instruction: Take 1 tablet by mouth once daily Rx Instructions: Take 1 tablet by mouth once daily ramipril 10 mg capsule See Rx Instructions .ROUTE .COMPLEX Qty: 90 0RF Dose Instruction: Take 1 capsule by mouth once daily Rx Instructions: Take 1 capsule by mouth once daily amlodipine 5 mg tablet See Rx Instructions .ROUTE .COMPLEX Qty: 90 0RF Dose Instruction: Take 1 tablet by mouth once daily Rx Instructions: Take 1 tablet by mouth once daily levocetirizine 5 mg tablet See Rx Instructions .ROUTE .COMPLEX Qty: 90 0RF Dose Instruction: Take 1 tablet by mouth once daily Rx Instructions: Take 1 tablet by mouth once daily Referrals Follow up/Referrals: Kvng Sepulveda MD [Staff Physician] - See instructions Arely Dey APRN [Primary Care Provider] - See instructions Activity Restrictions/Add. Instructions Additional Instructions/Restrictions: I have sent antibiotic into your pharmacy. Please take it till its gone. You need to follow-up with your PCP if you have continued new or worsening signs or symptoms. I referred you to general surgery as at some point in the future you may need to rehab this section of bowel removed. Please call tomorrow to make your appointment. Clinical Impressions Clinical Impression: Diverticulitis of sigmoid colon Instructions Patient Instructions: DI for Diverticulitis Print Language Print Language: [place] Discharge ED Provider: Khalida Calhoun General Adult HPI General Chief complaint: Abdominal Pain Stated complaint: lower abd pain,Vomiting,pain worse with movement Time Seen by Provider: 05/31/24 16:11 Mode of Arrival: Ambulatory Source of Information: Patient Description of Symptoms (Recalled from ER Triage Doc. by RN): Pt presents with c/o mid lower abd pain x 3 days. Pt states pain is a 6/10. Pt states he is peeing more frequently and has had 2 episodes of vomiting yesterday. History of Present Illness HPI narrative: Patient presents for evaluation of acute abdominal pain. Patient states that he has had 3 days of infraumbilical abdominal pain. He states it feels like its pressure and gets worse with a full bladder or having to pee but not actual burning on urination. Patient reports some nausea but no vomiting no diarrhea he is having a bowel movement and passing flatus. He denies any chest pain shortness of breath fever chills hemoptysis hematochezia melena hematemesis hematuria Related Data Home Medications ?Medication ?Instructions ?Recorded ?Confirmed fluoxetine 40 mg capsule 40 mg PO DAILY 10/20/23 05/31/24 pantoprazole 40 mg tablet,delayed 40 mg PO ONCE 10/20/23 05/31/24 release Previous Rx's ?Medication ?Instructions ?Recorded fluticasone propionate 50 1 spray intranasal DAILY #9.9 mL 12/03/19 mcg/actuation nasal spray,suspension (Flonase Allergy Relief) nitroglycerin 0.4 mg sublingual 0.4 mg sublingual Q5MINP PRN Chest 08/02/20 tablet Pain #20 tabs clopidogrel 75 mg tablet See Rx Instructions .Route 10/17/20 .COMPLEX #90 tabs budesonide-formoterol HFA 160 2 puff inhalation BID #10.2 grams 07/13/21 mcg-4.5 mcg/actuation aerosol inhaler (Symbicort) ProAir HFA 90 mcg/actuation See Rx Instructions .Route 10/05/21 aerosol inhaler (albuterol sulfate) .COMPLEX #9 grams bisoprolol fumarate 5 mg tablet See Rx Instructions .Route 10/05/21 .COMPLEX #90 tabs simvastatin 80 mg tablet See Rx Instructions .Route 12/17/21 .COMPLEX #90 tabs amlodipine 5 mg tablet See Rx Instructions .Route 01/10/22 .COMPLEX #90 tabs levocetirizine 5 mg tablet See Rx Instructions .Route 01/10/22 .COMPLEX #90 tabs ramipril 10 mg capsule See Rx Instructions .Route 01/10/22 .COMPLEX #90 caps amoxicillin 875 mg-potassium 1 tab PO BID #20 tabs 05/31/24 clavulanate 125 mg tablet ondansetron 4 mg disintegrating 4 mg PO QID PRN nausea and 05/31/24 tablet vomiting #10 tabs Allergies Allergy/AdvReac Type Severity Reaction Status Date / Time metoprolol Allergy Low Verified 05/31/24 16:[address] [facility] Disclaimer: The information contained in this section may have been updated after the patient was seen, as this information can be updated by other users. Medical History Cardiac pacemaker in situ Restless sleeper Resting tremor Depression Vitamin D deficiency Anxiety COPD (chronic obstructive pulmonary disease) COPD exacerbation Smoker Dyspnea Presence of stent in LAD coronary artery AMI and stent of 99% blockage in 2009 Coronary artery disease Social History Smoking Status: Never smoker second hand exposure: Yes alcohol intake: never substance use type: denies use current occupational status: unemployed Travel in the last 8 weeks: None household members: spouse housing: house current occupational exposures/hazards: Yes caffeine: Yes Have you lived/traveled outside [place] in past 30 days?: No Contact w/someone who lives/traveled outside [place] past 30 days?: No Exposure to someone with infectious disease in past 14 days?: No Do you have a fever (greater than 100.4 F or 38 C)?: No Have you tested positive for COVID-19: No Exposed to someone with COVID-19 in past 14 days?: No Do you have a sore throat?: No Do you have a cough?: No Do you have any weakness?: No Do you have any diarrhea?: No Are you experiencing any unusual bleeding?: No Do you have any muscle aches/pain?: No Do you have any abdominal pain?: No Are you experiencing loss of taste or smell?: No Other Medical History Have you received the Flu Vaccine for this season: Yes Have you received the Pneumonia Vaccine: No ROS Obtained: Yes Systems reviewed as appropriate & no additional complaints except as documented Physical Exam General General appearance: alert and in no apparent distress Respiratory Respiratory exam: Present normal lung sounds bilaterally Cardiovascular Cardiovascular exam: Present regular rate Neurological Exam Neurological exam: Present alert and oriented X3 Medical Decision Making Medical Records Medical records reviewed: Yes I reviewed the patient's medical records. Screening: Per USPSTF and CDC recommendations, given the prevalence of disease in our region, it is our hospital?s policy to screen for HIV and viral Hepatitis for all patients aged 18 and over and those with ongoing risk factors. Collin Inquiry Pt receiving controlled substance: No Vital Signs: 05/31/24 16:01 Temperature 98.3 F Temperature Source Oral Pulse Rate [Right] 63 Respiratory Rate 18 Blood Pressure [Right Arm] 108/72 L Blood Pressure Mean [Right Arm] 84 Blood Pressure Source [Right Arm] Automatic Cuff Blood Pressure Position [Right Arm] Sitting 02 Sat by Pulse Oximetry 100 Oxygen Delivery Method Room Air Lab Data Lab results reviewed: Yes I reviewed the patient's lab results. Lab Results 05/31/24 16:17: WBC 10.7, RBC 5.39, Hgb 17.1, Hct 50.2, MCV 93.1, MCH 31.7 H, MCHC 34.1, RDW 13.2, Plt Count 304, MPV 8.7, Neut % (Auto) 50.2, Lymph % (Auto) 34.7, [place] % (Auto) 6.3, Eos % (Auto) 7.8, Baso % (Auto) 1.0, Neut # (Auto) 5.4, Lymph # (Auto) 3.7, [place] # (Auto) 0.7, Eos # (Auto) 0.8 H, Baso # (Auto) 0.1, Sodium 140, Potassium 3.7, Chloride 103, Carbon Dioxide 25, Anion Gap 15.7 H, BUN 15, Creatinine 0.90, Estimated Creat Clear 124, Estimated GFR 88, Est GFR ( Amer) 107, Glucose 93, Calcium 10.2, Total Bilirubin 0.7, AST 28, ALT 26, Alkaline Phosphatase 68, Total Protein 8.3 H, Albumin 4.8, Globulin 3.5 H, Albumin/Globulin Ratio 1.4, Procalcitonin 0.047 05/31/24 16:27: Lactate 0.8 05/31/24 16:30: Urine Color Yellow, Urine Appearance Clear, Urine pH 6.5, Ur Specific [place] 1.020, Urine Protein Negative, Urine Glucose (UA) Negative, Urine Ketones Negative, Urine Blood Negative, Urine Nitrate Negative, Urine Bilirubin Negative, Urine Urobilinogen 0.2, Ur Leukocyte Esterase Negative, Urine RBC None, Urine WBC Occasional, Ur Squamous Epith Cells Occasional, Urine Bacteria Trace 05/31/24 16:17 05/31/24 16:17 Orders (Tests/Meds): ED MEDICATIONS Discontinued Medications Generic Name Dose Route Start Last Admin Trade Name Freq PRN Reason Stop Dose Admin Acetaminophen 1,000 mg 05/31/24 16:20 05/31/24 16:34 Acetaminophen 1,000mg/100ml Vial IV 05/31/24 16:21 1,000 mg ONCE ONE Administration Amoxicillin/Clavulanate Potassium 1 each 05/31/24 18:12 Amoxicillin/Clavulanate Potassium 875/125mg Tablet PO 05/31/24 18:13 ONCE ONE Sodium Chloride 1,000 mls @ 999 mls/hr 05/31/24 16:20 05/31/24 16:34 Sod Chlor 0.9% 1000ml Bag IV 05/31/24 17:20 999 mls/hr .Q1H1M ONE Administration Iopamidol 75 ml 05/31/24 17:08 05/31/24 17:08 Iopamidol-370 (76%);100ml Bottle IV 05/31/24 17:09 75 ml ONCE ONE Administration Ketorolac Tromethamine 15 mg 05/31/24 16:20 05/31/24 16:33 Ketorolac 30mg/Ml Vial IV 05/31/24 16:21 15 mg ONCE ONE Administration Ondansetron HCl 4 mg 05/31/24 16:20 05/31/24 16:33 Ondansetron 4mg/2ml Vial IV 05/31/24 16:21 4 mg ONCE ONE Administration Sodium Chloride 10 ml 05/31/24 17:08 05/31/24 17:08 Sodium Chloride 0.9% 10ml Syr (Rad Only) IV 05/31/24 17:09 10 ml ONCE ONE Administration ORDERS Category Date Time Status CT abdomen pelvis w con Stat Cat Scan 05/31/24 16:20 Completed CBC w/Auto Diff [Complete Blood Count Auto Diff] Stat Lab 05/31/24 16:17 Completed CMP [Comprehensive Metabolic Panel] Stat Lab 05/31/24 16:17 Completed Lactic Acid Stat Lab 05/31/24 16:27 Completed Procalcitonin Stat Lab 05/31/24 16:17 Completed Urinalysis and Microscopic Stat Lab 05/31/24 16:30 Completed Medical Decision Narrative: In summary patient is a 54-year-old male who presents to the emergency department for evaluation of for umbilical abdominal pain. Patient is dynamically with a blood pressure of 108/72 heart rate 63 normal sinus rhythm on the bedside monitor breathing 18 times a minute satting at 100% on room air upon arrival, afebrile at 98.3. Zickel exam is remarkable for mild midline infraumbilical abdominal tenderness without rebound or guarding or rigidity. Bowel sounds normal active. It does not localize to either side.. Differential diagnosis includes cystitis versus gastroenteritis versus constipation versus diverticulitis versus appendicitis etc. Initial workup will be conducted with hematologic labs urinalysis CT scan abdomen pelvis with contrast. Initial interventions include crystalloid bolus Toradol Tylenol Zofran. Initial workup reviewed by me and his hematologic labs are remarkable for a normal white count normal H&H no neutrophilic shift, the remainder of his hematologic labs are nonactionable include a procalcitonin of 0.047 urinalysis is bland and my informal interpretation of his CT scan abdomen pelvis actually shows sigmoid diverticulitis without perforation or abscess.. Upon repeat evaluation patient reports significant improvement after initial intervention and is tolerating oral intake.. Given this patient has uncomplicated acute sigmoid diverticulitis. He will be given a prescription for Augmentin with first dose given here and Zofran with strict return precautions. He will be referred to general surgery as an outpatient for ongoing follow-up. Critical Care Critical Care Time Critical Care Time: No
--- NOTE | 2024-05-31 16:20 | CT_ITS ---
PROCEDURE INFORMATION: Exam: CT Abdomen And Pelvis With Contrast Exam date and time: 05/31/2024 5:03 PM Age: 54 years old Clinical indication: Abdominal pain; Additional info: Infraumbilical abdominal pain TECHNIQUE: Imaging protocol: Computed tomography of the abdomen and pelvis with contrast. Radiation optimization: All CT scans at this facility use at least one of these dose optimization techniques: automated exposure control; mA and/or kV adjustment per patient size (includes targeted exams where dose is matched to clinical indication); or iterative reconstruction. Contrast material: ISOVUE; Contrast volume: 75 ml; Contrast route: IV; COMPARISON: CT CHEST W CON 03/13/2020 2:06 PM FINDINGS: Tubes, catheters and devices: Cardiac pacemaker leads partially visualized without gross complication or change. Lungs: Granulomatous calcification in the posteromedial right lung base. Heart: Heart size normal. Esophagus: The visualized distal esophagus is largely contracted without gross abnormality. Liver: Normal contour. No mass lesions. No intrahepatic biliary ductal dilatation. Gallbladder and biliary ducts: The gallbladder is partially contracted but otherwise unremarkable. Nondilated common bile duct. Pancreas: Normal. No inflammatory changes or ductal dilation. Spleen: Normal. No splenomegaly. Adrenal glands: Normal. No adrenal mass. Kidneys and ureters: No acute abnormalities. No hydronephrosis or hydroureter. No urinary tract stones are identified. Small zone of chronic cortical scarring in the upper pole of the left kidney unchanged. Stomach and bowel: The stomach is largely contracted. The small bowel is nondilated with no gross abnormality. Moderate distal colonic diverticulosis. Thick-walled diverticulum with surrounding stranding in the mid sigmoid distribution consistent with acute diverticulitis. No perforation or abscess. Appendix: The appendix is normal in caliber and demonstrates no evidence of appendicitis. Intraperitoneal space: No peritoneal free fluid or air. Vasculature: No acute vascular abnormalities. Mild-moderate calcific atherosclerosis. Post ostial soft plaque in the proximal SMA produces mild stenosis of less than 50%. Variant left renal vein configuration draining to the junction of the left common iliac vein and IVC. Lymph nodes: No adenopathy. Urinary bladder: Unremarkable as visualized. Reproductive: Mildly enlarged prostate. Bones/joints: No acute osseous abnormalities. Soft tissues: No acute soft tissue abnormalities. IMPRESSION: 1. Acute diverticulitis in the mid sigmoid colon. No perforation or abscess. 2. Nonemergent findings detailed above.
[2024-05-31 16:25] LABS: Basophils # 0.1 K/mm3 (0-0.2); Eosinophils # 0.8 K/mm3 (0.0-0.4); Eosinophils % 7.8 % (0.1-12.0); Hematocrit 50.2 % (42.0-52.0); Hemoglobin 17.1 g/dL (14.1-18.0); Lymphocytes # 3.7 K/mm3 (0.7-4.5); Lymphocytes % 34.7 % (10-50); Mean Corpuscular HGB Conc 34.1 g/dL (31.8-35.4); Mean Corpuscular Hemoglobin 31.7 pg (27.0-31.2); Mean Corpuscular Volume 93.1 fl (80-94); Mean Platelet Volume 8.7 fl (7.4-10.4); Monocytes # 0.7 K/mm3 (0.1-1.0); Monocytes % 6.3 % (1.7-9.3); Neutrophils # 5.4 K/mm3 (1.8-7.8); Neutrophils % 50.2 % (37.0-80.0); Platelet Count 304 K/mm3 (142-424); Red Blood Count 5.39 M/mm3 (4.60-6.20); Red Cell Distribution Width 13.2 % (11.5-17.5); White Blood Count 10.7 K/mm3 (4.8-10.8)
[2024-05-31 16:32] LABS: Alanine Aminotransferase 26 U/L (12-78); Albumin Level 4.8 g/dl (3.5-5.0); Albumin/Globulin Ratio 1.4 (1.1-1.8); Alkaline Phosphatase 68 U/L (38-126); Anion Gap 15.7 mEq/L (5-15); Aspartate Amino Transferase 28 U/L (17-59); Bilirubin,Total 0.7 mg/dl (0.2-1.3); Blood Urea Nitrogen 15 mg/dl (9-20); Calcium 10.2 mg/dl (8.4-10.2); Carbon Dioxide 25 mmol/L (22.0-30.0); Chloride 103 mmol/L (98-107); Creatinine Clearance Estimated 124 mL/min (50-200); Estimated Glomerular Filt Rate 88 ml/min (>60); GFR (African American) 107 ML/MIN (>60); Globulin 3.5 g/dL (1.3-3.2); Glucose 93 mg/dl (74-100); Potassium 3.7 mmoL/L (3.5-5.1); Sodium 140 mmol/L (136-145); Total Protein,Serum 8.3 g/dl (6.3-8.2)
[2024-05-31 16:32] LABS: Microscopic, Urine URINE MICROSCOPIC (MICROSCOPIC)
[2024-05-31] MEDS: ONDANSETRON 4MG/2ML VIAL 4 MG IV (16:33)
[2024-05-31] MEDS: KETOROLAC 30MG/ML VIAL 15 MG IV (16:33)
[2024-05-31 16:34] LABS: Appearance,Urine CLEAR (Clear); Bilirubin,Urine Negative (Negative); Blood, Urine Negative (Negative); Color,Urine YELLOW (Yellow); Glucose,Urine (UA) Negative (Negative); Ketones,Urine Negative (Negative); Leukocyte Esterase,Urine Negative (Negative); Nitrate,Urine Negative (Negative); PH,Urine 6.5 (5.0-8.5); Protein,Urine Negative (Negative); Urobilinogen,Urine 0.2 EU/dl (0.2)
[2024-05-31] MEDS: ACETAMINOPHEN 1,000MG/100ML VIAL 1000 MG IV (16:34)
[2024-05-31] MEDS: 0.9 % SODIUM CHLORIDE 1000ML 1,000 ML 999 ML IV (16:34)
[2024-05-31 16:49] LABS: Procalcitonin 0.047 ng/mL (0.0-2.0)
[2024-05-31 17:01] LABS: Lactic Acid 0.8 mmol/L (0.7-2.1)
[2024-05-31 17:07] LABS: Bacteria,Urine Trace /lpf; Squamous Epithelial Cell,Urine Occasional #/hpf (0-5); WBC,Urine Occasional #/hpf (0-3)
[2024-05-31] MEDS: SODIUM CHLORIDE 0.9% 10ML SYR (RAD ONLY) 10 ML IV (17:08)
[2024-05-31] MEDS: IOPAMIDOL-370 (76%);100ML BOTTLE 75 ML IV (17:08)
[2024-05-31 18:21] VITALS: BP 116/72; PULSE 67; RESP 16; TEMP 36.8; O2SAT 98
[2024-05-31] MEDS: AMOXICILLIN/CLAVULANATE POTASSIUM 875/125MG TABLET 1 EACH PO (18:21)
[2024-05-31 18:22] VITALS: BP 135/77; PULSE 65; RESP 13; TEMP 36.8; O2SAT 98
== END 2024-05-31 18:30 | disposition home or self-care (01) ==
PROVIDERS: Physician Assistant; Emergency Provider Student in an Organized Health Care Education/Training Program; PCP Nurse Practitioner
DX: K57.32 Diverticulitis of large intestine without perforation or abscess without bleeding (principal); R10.30 Lower abdominal pain, unspecified; R35.0 Frequency of micturition; R11.2 Nausea with vomiting, unspecified
CPT/HCPCS: 74177; 80053; 81001; 83605; 84145; 85025; 96361; 96374; 96375; 99285; J0131; J1885; J2405; J7030; Q9967

== ENCOUNTER 2024-09-02 11:00 | Outpatient (CLI) | payer OTHER, SELFPAY ==
--- NOTE | 2024-09-02 11:00 | CT_ITS ---
FINAL REPORT TECHNIQUE: The patient was injected with IV contrast. Axial images were obtained through the chest in a PE protocol. 3-D reconstruction images were also performed. Individualized dose reduction techniques using automated exposure control or adjustment of the MA and/or KV according to patient's size were employed. CLINICAL HISTORY: elevated d-dimer FINDINGS: Mediastinal vasculature is adequately opacified. No pulmonary artery filling defects are identified to suggest PE. There is no aortic dissection. Left upper anterior chest wall pacemaker is identified. There is no axillary adenopathy. There is no hilar or mediastinal adenopathy. The heart size is normal. There is no pericardial or pleural effusion. Limited images of the upper abdomen are unremarkable. No suspicious infiltrate or nodule is identified. IMPRESSION: No pulmonary embolus or dissection. Reviewed, Interpreted and Dictated by Cruz Hair MD Transcribed by Alie Rico Authenticated and [facility]
--- OUTSIDE RECORDS SUMMARY | 2024-09-02 11:06 | XMS_ITS | Clinical Summary ---
Author Organization Healthcare Address [address] [place] [address] Care Team Providers Care Gis Analyst Name Role Phone Unavailable Primary Care Provider Unavailabl e Social History Tobacco Use Types Packs/Day Years Used Date Smoking Tobacco: Never Assessed Sex and Gender Information Value Date Recorded Sex Assigned at Not on file Legal Sex Male 3:03 PM EDT Gender Identity Not on file Sexual Orientation Not on file Plan of Treatment Health Maintenance Due Date Last Done Comments [facility]-Depression Screening 1971 [facility]-HIV Screening 1971 [facility]-Hepatitis C Screening 1971 [facility]-/Child/Adol SDOH Screenings 1971 [facility]- SDOH Screenings 1989 [facility]-Adult SDOH Screenings 1989 [facility]-Hepatitis B Vaccines (1 of 3 - 19+ 3-dose series) 1990 CT Colonography 01/02/2016 Colonoscopy 01/02/2016 FIT-DNA 01/02/2016 FIT 01/02/2016 FOBT 01/02/2016 Sigmoidoscopy 01/02/2016 [facility]-Colorectal Cancer Screening 01/02/2016 [facility]-Pneumococcal Vaccine: 50+ Years (1 of 1 - PCV) 2021 [facility]-Zoster Vaccines (2 of 2) 09/19/2023 07/25/2023 [id number] Vaccine (1 - 2023- season) 2023 [facility]-Influenza Vaccine (Season Ended) 2024 12/05/2022, 01/20/2022, 12/03/2019, Additional history exists [facility]-DTaP,Tdap,and Td Vaccines (5 - Td or Tdap) 12/08/2031 12/07/2021, 05/29/2016, 10/25/2010, Additional history exists HPV Vaccines Aged Out No longer eligi ble based on patient's age to complete this topic [facility]-HIB Vaccines Aged Out No longer e ligible based on patient's age to complete this topic [facility]-Hepatitis A Vaccines Aged Out No longer eligible based on patient's age to complete this topic [facility]-IPV Vaccines Aged Out No longer e ligible based on patient's age to complete this topic [facility]-Rotavirus Vaccines Aged Out No lo nger eligible based on patient's age to complete this topic Medical Devices Implanted Type Area Reading Aide Device Identifier Shelf Expiration Date Model / Serial / Lot Ra Lead [employer]-01/02 Implanted:01/20 (Quantity not on file) Lead Chest Comfy [id number] / [id number] / Rv Lead [employer]-01/02 Implanted:01/20 (Quantity not on file) Lead Chest Comfy 7842 / [id number] / Accolade Mri Pacemaker [employer]-01/02 Implanted:01/20 (Quantity not on file) Pacemaker Chest Comfy [id number] / [id number] / Description:LEAD IMPLANTS -[employer] [place] [employer] RA LEAD: [id number]/ Insurance ETTER
--- OUTSIDE RECORDS SUMMARY | 2024-09-02 11:06 | XMS_ITS | Clinical Summary ---
Author Organization [facility] [place] [address] Care Team Providers Care Orthotics Prosthetics Technician Name Role Phone Unavailable Primary Care Provider Unavailabl e Social History Tobacco Use Types Packs/Day Years Used Date Smoking Tobacco: Never Assessed Sex and Gender Information Value Date Recorded Sex Assigned at Not on file Legal Sex Male 8:01 AM EDT Gender Identity Not on file Sexual Orientation Not on file Plan of Treatment Health Maintenance Due Date Last Done Comments Annual Wellness Exam 1974 DTaP/TDaP/Td (1 - Tdap) 1990 Hepatitis B Vaccine (1 of 3 - 19+ 3-dose series) 1990 Cologuard 01/02/2016 Colon Cancer Screening 01/02/2016 Colonoscopy 01/02/2016 FIT 01/02/2016 Sigmoidoscopy 01/02/2016 Virtual Colonography 01/02/2016 Pneumococcal Vaccine 50+ (1 of 1 - PCV) 2021 Zoster (1 of 2) 2021 COVID-19 Vaccine (1 - 2023-2 5 season) 2023 Influenza Vaccine (#1) 2024 Meningococcal B Vaccine Aged Out No l onger eligible based on patient's age to complete this topic
[2024-09-02] MEDS: 0.9 % SODIUM CHLORIDE 50 ML VIAL IV (11:24)
[2024-09-02] MEDS: SODIUM CHLORIDE 0.9% 10ML SYR (RAD ONLY) 10 ML IV (11:25)
[2024-09-02] MEDS: IOPAMIDOL-370 (76%);100ML BOTTLE 75 ML IV (11:25)
== END 2024-09-02 23:59 | disposition home or self-care (01) ==
LOC: RAD 11:00
PROVIDERS: PCP Nurse Practitioner; Visit Provider Physician Assistant
DX: I25.10 Atherosclerotic heart disease of native coronary artery without angina pectoris (principal); R79.89 Other specified abnormal findings of blood chemistry; I10 Essential (primary) hypertension; R94.31 Abnormal electrocardiogram [ECG] [EKG]
CPT/HCPCS: 71275; Q9967

== ENCOUNTER 2024-10-11 09:03 | Emergency (ER) | payer OTHER, SELFPAY ==
[2024-10-11 09:13] VITALS: BP 132/73; PULSE 82; RESP 14; TEMP 36.8; O2SAT 98; BMI 26.7
--- OUTSIDE RECORDS SUMMARY | 2024-10-11 09:19 | XMS_ITS | Clinical Summary ---
Author Organization [facility] [place] [address] Care Team Providers Care Rendering Equipment Tender Name Role Phone Unavailable Primary Care Provider [...]
--- OUTSIDE RECORDS SUMMARY | 2024-10-11 09:19 | XMS_ITS | Clinical Summary ---
Author Organization Healthcare Address [address] [id number] Care Team Providers Care Manager Support Services Name Role Phone Unavailable Primary Care Provider [...] Date Last Done Comments [facility]-Depression Screening 1971 [facility]-Infant/Child/Adol SDOH Screenings 1971 [facility]- SDOH Screenings 1989 [facility]-Adult SDOH Screenings 1989 [facility]-Hepatitis B Vaccines (1 of 3 - 19+ 3-dose series) 1990 CT Colonography 01/02/2016 Colonoscopy 01/02/2016 FIT-DNA 01/02/2016 FIT 01/02/2016 FOBT 01/02/2016 Sigmoidoscopy 01/02/2016 [facility]-Colorectal Cancer Screening 01/02/2016 [facility]-Pneumococcal Vaccine: 50+ Years (1 of 1 - PCV) 2021 [facility]-Zoster Vaccines (2 of 2) 09/19/2023 07/25/2023 [id number] Vaccine (1 - 2023- season) 2023 [facility]-Influenza Vaccine (#1) 11/01/202412/05, 01/20/2022, 12/03/2019, Additional history exists [facility]-DTaP,Tdap,and Td [...] this topic Medical Devices Implanted Type Area Hide Or Skin Buffer Device Identifier Shelf Expiration Date Model / Serial / Lot Ra Lead [place] [employer]-01/02 Implanted:01/20 (Quantity not on file) Lead Chest Fuzz 7841 / [id number] / Rv Lead [employer] [employer]-01/02 Implanted:01/20 (Quantity not on file) Lead Chest Fuzz 7842 / [id number] / Accolade Mri Pacemaker [employer]-01/02 Implanted:01/20 (Quantity not on file) Pacemaker Chest Fuzz [id number] / [id number] / Description:LEAD IMPLANTS -[employer] RA LEAD: [id number]/ Insurance ETTER
--- NOTE | 2024-10-11 09:25 | CT_ITS ---
FINAL REPORT TECHNIQUE: After the administration of intravenous contrast, axial images were obtained through the abdomen and pelvis by computed tomography. This study was performed with technique to keep radiation doses as low as reasonably achievable, (ALARA). Individualized dose reduction techniques using automated exposure control or adjustment of the MA and/or KV according to the patient's size were employed. CLINICAL HISTORY: Lower abdominal pain, hematuria, diverticulitis COMPARISON: 05/31/2024 FINDINGS: Abdomen: The lung bases are clear. The liver is mildly fatty infiltrated. Gallbladder is unremarkable. The spleen is unremarkable. The adrenals are normal. The pancreas is unremarkable. There is mild left hydronephrosis and hydroureter. Urothelial thickening is noted. Findings are suspicious of upper urinary tract infection. There is no obvious change of pyelonephritis. Right kidney is unremarkable. The aorta is normal in caliber. There is no free fluid or adenopathy. Bowel is normal. Pelvis: The appendix is normal. There has been interval resolution of previously seen diverticulitis. There is severe urinary bladder wall thickening consistent with cystitis. There is no free fluid or adenopathy. IMPRESSION: 1. Findings suspicious for upper and lower urinary tract infection. 2. Resolved diverticulitis. Reviewed, Interpreted and Dictated by Kyleigh King MD Transcribed by Nelly Jefferson Authenticated and . [facility]
--- NOTE | 2024-10-11 09:27 | ED_ITS ---
Discharge Plan Disposition Patient Disposition: Home, Self-Care Prescriptions Prescriptions: New ciprofloxacin HCl 500 mg tablet 500 mg PO BID 14 Days Qty: 28 0RF ondansetron 4 mg tablet,disintegrating 4 mg PO Q6H PRN (Reason: nausea and vomiting) Qty: 20 0RF No Action aspirin [Adult Low Dose Aspirin] 81 mg tablet,delayed release (DR/EC) 81 mg PO DAILY Qty: 30 5RF fluticasone propionate [Flonase Allergy Relief] 50 mcg/actuation spray,suspension 1 spray INTRANASAL DAILY Qty: 9.9 4RF Rx Instructions: administer into each nostril fluoxetine 40 mg capsule 40 mg PO DAILY Patient Comments: Take 1 capsule every day by oral route. pantoprazole 40 mg tablet,delayed release (DR/EC) 40 mg PO ONCE Patient Comments: Take 1 tablet every day by oral route. nitroglycerin 0.4 mg tablet, sublingual 0.4 mg SUBLINGUAL Q5MINP PRN (Reason: Chest Pain) Qty: 20 0RF ranolazine 500 mg tablet extended release 12 hr 500 mg PO BID Qty: 60 2RF clopidogrel 75 mg tablet See Rx Instructions .ROUTE .COMPLEX Qty: 90 3RF Dose Instruction: Take 1 tablet by mouth once daily Rx Instructions: Take 1 tablet by mouth once daily budesonide-formoterol [Symbicort] 160-4.5 mcg/actuation HFA aerosol inhaler 2 puff INHALATION BID Qty: 10.2 4RF albuterol sulfate [ProAir HFA] 90 mcg/actuation HFA aerosol inhaler See Rx Instructions .ROUTE .COMPLEX Qty: 9 0RF Dose Instruction: INHALE 2 PUFFS BY MOUTH EVERY 6 HOURS NEEDED FOR SHORTNESS OF BREATH FOR WHEEZING Rx Instructions: INHALE 2 PUFFS BY MOUTH EVERY 6 HOURS NEEDED FOR SHORTNESS OF BREATH FOR WHEEZING bisoprolol fumarate 5 mg tablet See Rx Instructions .ROUTE .COMPLEX Qty: 90 1RF Dose Instruction: Take 1 tablet by mouth once daily Rx Instructions: Take 1 tablet by mouth once daily simvastatin 80 mg tablet See Rx Instructions .ROUTE .COMPLEX Qty: 90 0RF Dose Instruction: Take 1 tablet by mouth once daily Rx Instructions: Take 1 tablet by mouth once daily ramipril 10 mg capsule See Rx Instructions .ROUTE .COMPLEX Qty: 90 0RF Dose Instruction: Take 1 capsule by mouth once daily Rx Instructions: Take 1 capsule by mouth once daily amlodipine 5 mg tablet See Rx Instructions .ROUTE .COMPLEX Qty: 90 0RF Dose Instruction: Take 1 tablet by mouth once daily Rx Instructions: Take 1 tablet by mouth once daily levocetirizine 5 mg tablet See Rx Instructions .ROUTE .COMPLEX Qty: 90 0RF Dose Instruction: Take 1 tablet by mouth once daily Rx Instructions: Take 1 tablet by mouth once daily sodium,potassium,mag sulfates [Suprep Bowel Prep Kit] 17.5-3.13-1.6 gram recon soln See Rx Instructions PO .COMPLEX Qty: 354 0RF Rx Instructions: DILUTE; drink full amount early evening before AND next morning at least 2 hr before procedure; follow w 960 mL water PO peg 3350-electrolytes [Golytely] 236-22.74-6.74 -5.86 gram recon soln 240 ml PO Q10M Qty: 4000 0RF Rx Instructions: until fecal effluent is clear Referrals Follow up/Referrals: Arely Dey APRN [Primary Care Provider, Medical] - See instructions Activity Restrictions/Add. Instructions Additional Instructions/Restrictions: You were found to have a urinary tract infection on your workup today. You were given a dose of IV antibiotics here. I am prescribing you a 2-week course of antibiotics to take. Take antibiotics for the full 2 weeks even if symptoms resolve. Follow-up with your primary care physician if you continue to have symptoms. If you develop any new or worsening symptoms, or if you become concerned for your health for any reason, return to the emergency department for evaluation. Clinical Impressions Clinical Impression: Urinary tract infection Instructions Patient Instructions: DI for Acute Abdominal Pain Print Language Print Language: Pakistani Discharge ED Provider: Ken Nugent Adult [facility] General Chief complaint: Abdominal Pain Stated complaint: complications from diverticulitits Time Seen by Provider: 10/11/24 09:19 Mode of Arrival: Ambulatory Source of Information: Patient Description of Symptoms (Recalled from ER Triage Doc. by RN): pt states he has been feeling bad x4d. pt reports lower abd pain that is 6/10 and feels like pressure. He also reports urinary frequency, urgency and dark orange/thick urine. pt states his last BM was 5d ago, this is irregular for him. pt states he has had a fever up to 100.9F and has had N/V. pt states he has a hx of diverticulitis. History of Present Illness HPI narrative: Gigi Zurita is a 54-year-old male with a history of coronary artery disease, cardiac stenting on aspirin and clopidogrel, COPD, cardiac pacemaker/defibrillator, diverticulitis diagnosed 2 months ago who presents to the emergency department for complaints of abdominal pain, nausea and vomiting as well as hematuria and urinary urgency. Patient states that starting last night, he developed lower abdominal pain has had multiple episodes of nonbilious nonbloody vomiting. He states that his stools have been minimal recently and hard. He reports that today, his urine had blood in it with substance and is a dark orange. He reports a fever last night of 101 ?F. He denies any history of abdominal surgeries. Related Data Home Medications ?Medication ?Instructions ?Recorded ?Confirmed fluoxetine 40 mg capsule 40 mg PO DAILY 10/20/2305/25 pantoprazole 40 mg tablet,delayed 40 mg PO ONCE 09/02/24 release Previous Rx's ?Medication ?Instructions ?Recorded fluticasone propionate 50 1 spray intranasal DAILY #9. 9 mL 12/03/19 mcg/actuation nasal spray,suspension (Flonase Allergy Relief) clopidogrel 75 mg tablet See Rx Instructions .Route 0 10/17/20 .COMPLEX #90 tabs budesonide-formoterol HFA 160 2 puff inhalation BID #1 0.2 grams 07/13/21 mcg-4.5 mcg/actuation aerosol inhaler (Symbicort) ProAir HFA 90 mcg/actuation See Rx Instructions .Route 10/05/21 aerosol inhaler (albuterol sulfate) .COMPLEX #9 grams bisoprolol fumarate 5 mg tablet See Rx Instructions .R oute 10/05/21 .COMPLEX #90 tabs simvastatin 80 mg tablet See Rx Instructions .Route 1 .COMPLEX #90 tabs amlodipine 5 mg tablet See Rx Instructions .Route 1 03/12/21 .COMPLEX #90 tabs levocetirizine 5 mg tablet See Rx Instructions .Route 01/10/22 .COMPLEX #90 tabs ramipril 10 mg capsule See Rx Instructions .Route 1 03/12/21 .COMPLEX #90 caps sodium,potassium,mag sulfates 17.5 See Rx Instructions PO .COMPLEX 07/08/24 gram-3.13 gram-1.6 gram oral soln #354 mL (Suprep Bowel Prep Kit) peg 3350-electrolytes 236 240 ml PO Q10M #4,000 mL 02/24 gram-22.74 gram-6.74 gram-5.86 gram solution (Golytely) aspirin 81 mg tablet,delayed 81 mg PO DAILY #30 tabs 0 08/02/24 release (Adult Low Dose Aspirin) nitroglycerin 0.4 mg sublingual 0.4 mg sublingual Q5MI [employer] PRN Chest 09/02/24 tablet Pain #20 tabs ranolazine 500 mg tablet,extended 500 mg PO BID #60 ta bs 09/02/24 release,12 hr ciprofloxacin HCl 500 mg tablet 500 mg PO BID 14 days #28 tabs 10/11/24 ondansetron 4 mg disintegrating 4 mg PO Q6H PRN nausea and 10/11/24 tablet vomiting #20 tabs Allergies Allergy/AdvReac Type Severity Reaction Status Date / Time Penicillins Allergy Unknown Verified 10/11/24 09:18 allergy reaction metoprolol AdvReac Low Verified 10/11/24 09:18 [facility] Dis[facility]: The information contained in this section may have been updated after the patient was seen, as this information can be updated by other users. Medical History (Updated 10/11/24 @ 10:54 by Ken Nugent MD) Other chest pain Pacemaker Cardiac pacemaker in situ Restless sleeper Resting tremor Depression Vitamin D deficiency Anxiety COPD (chronic obstructive pulmonary disease) COPD exacerbation Smoker Dyspnea Presence of stent in LAD coronary artery Coronary artery disease Surgical History H/O shoulder surgery Family History Other Family history of cancer Social History Smoking Status: Current every day smoker tobacco type: cigarettes packs per day: 1 second hand exposure: Yes alcohol intake: never substance use type: denies use current occupational status: unemployed Travel in the last 8 weeks?: None household members: spouse housing: house current occupational exposures/hazards: Yes caffeine: Yes Have you lived/traveled outside [place] in past 30 days?: No Contact w/someone who lives/traveled outside [place] past 30 days?: No Exposure to someone with infectious disease in past 14 days?: No Do you have a fever (greater than 100.4 F or 38 C)?: No Have you tested positive for COVID-19?: No Exposed to someone with COVID-19 in past 14 days?: No Do you have a sore throat?: No Do you have a cough?: No Do you have any weakness?: No Do you have any diarrhea?: No Are you experiencing any unusual bleeding?: No Do you have any muscle aches/pain?: No Do you have any abdominal pain?: No Are you experiencing loss of taste or smell?: No Other Medical History Have you received the Flu Vaccine for this season: Yes Have you received the Pneumonia Vaccine: No ROS Obtained: Yes Systems reviewed as appropriate & no additional complaints except as documented Physical Exam General General appearance: alert and in no apparent distress Head Head exam: atraumatic Eye Eye exam: Present normal appearance ENT ENT exam: Present normal external ear exam Neck Neck exam: Present full ROM Chest Chest inspection: Present symmetric chest wall rise Respiratory Respiratory exam: Present normal lung sounds bilaterally; Absent respiratory distress Cardiovascular Cardiovascular exam: Present regular rate and normal rhythm Abdominal Exam Abdominal exam: Present soft and tenderness (Left lower quadrant > suprapubic with guarding in the left lower quadrant); Absent distention, guarding or rigidity exam: Present deferred Extremities Exam Extremities exam: Present normal inspection Back Exam Back exam: Present normal inspection Neurological Exam Neurological exam: Present alert and oriented X3 Psychiatric Psychiatric exam: Present normal affect Skin Skin exam: Present warm and dry Medical Decision Making Medical Records Screening: Per USPSTF and CDC recommendations, given the prevalence of disease in our region, it is our hospital?s policy to screen for HIV and viral Hepatitis for all patients aged 18 and over and those with ongoing risk factors. [place] Inquiry Pt receiving controlled substance: No Vital Signs: 10/11/24 09:13 Temperature 98.3 F Temperature Source Oral Pulse Rate [Left] 82 Respiratory Rate 14 Blood Pressure [Right Arm] 132/73 Blood Pressure Mean [Right Arm] 92 Blood Pressure Source [Right Arm] Automatic Cuff Blood Pressure Position [Right Arm] Sitting 02 Sat by Pulse Oximetry 98 Oxygen Delivery Method Room Air Lab Data Lab Results 10/11/24 09:09: WBC 15.6 H, RBC 4.52 L, Hgb 14.7, Hct 42.3, MCV 93.6, MCH 32.5 H , MCHC 34.8, RDW 13.2, Plt Count 282, MPV 9.0, Neut % (Auto) 70.3, Lymph % (Auto) 19.0, Story % (Auto) 7.6, Eos % (Auto) 2.2, Baso % (Auto) 0.4, Neut # (Auto) 11.0 H, Lymph # (Auto) 3.0, Story # (Auto) 1.2 H, Eos # (Auto) 0.3, Baso # (Auto) 0.1, Sodium 139, Potassium 4.0, Chloride 104, Carbon Dioxide 27, Anion Gap 12.0, BUN 12, Creatinine 0.80, Estimated Creat Clear 139, Estimated GFR 101, Est GFR ( Amer) 122, Glucose 108 H, Lactate 1.5, Calcium 9.1, Total Bilirubin 0.8, AST 26, ALT 25, Alkaline Phosphatase 88, Total Protein 7.4, Albumin 4.2, Globulin 3.2, Albumin/Globulin Ratio 1.3, Lipase 63, HCV Ab DIANA w/Rflx PCR Qn Negative 10/11/24 09:15: Urine Color Brown, Urine Appearance Cloudy, Urine pH 6.0, Ur Specific [place] 1.025, Urine Protein 3+ A, Urine Glucose (UA) Negative, Urine Ketones Negative, Urine Blood 3+ A, Urine Nitrate Negative, Urine Bilirubin 1+ A , Urine Urobilinogen 1.0, Ur Leukocyte Esterase 2+ A, Urine RBC Tntc, Urine WBC 10-20, Ur Squamous Epith Cells None, Urine Bacteria 2+ 10/11/24 09:09 10/11/24 09:09 Orders (Tests/Meds): ED MEDICATIONS Discontinued Medications Generic Name Dose Route Start Last Admin Trade Name Freq PRN Reason Stop Dose Admin Lactated Ringer's 1,000 mls @ 999 mls/hr 10/11/24 09:27 10/11/24 09:31 Lactated Ringer's 1000 Ml Bag IV 10/11/24 10:27 999 mls/hr .Q1H1M ONE Administration Ceftriaxone Sodium 2 gm/ 100 mls @ 200 mls/hr 10/11/24 10:50 10/11/24 11:14 Sodium Chloride IV 10/11/24 11:19 200 mls/hr ONCE ONE Administration Iopamidol 75 ml 10/11/24 09:58 10/11/24 09:59 Iopamidol-370 (76%);100ml Bottle IV 10/11/24 09:59 75 ml ONCE ONE Administration Ketorolac Tromethamine 15 mg 10/11/24 10:59 10/11/24 11:13 Ketorolac 30mg/Ml Vial IV 10/11/24 11:00 15 mg ONCE ONE Administration Morphine Sulfate 4 mg 10/11/24 09:25 10/11/24 09:31 Morphine 4mg/Ml Syringe IV 10/11/24 09:26 4 mg ONCE ONE Administration Ondansetron HCl 4 mg 10/11/24 09:25 10/11/24 09:31 Ondansetron 4mg/2ml Vial IV 10/11/24 09:26 4 mg ONCE ONE Administration Sodium Chloride 10 ml 10/11/24 09:58 10/11/24 09:59 Sodium Chloride 0.9% 10ml Syr (Rad Only) IV 10/11/24 09:59 10 ml ONCE ONE Administration ORDERS Category Date Time Status CT abdomen pelvis w con Stat Cat Scan 10/11/24 09:25 Completed CBC w/Auto Diff [Complete Blood Count Auto Diff] Stat Lab 10/11/24 09:09 Completed CMP [Comprehensive Metabolic Panel] Stat Lab 10/11/24 09:09 Completed HIV Combo Stat Lab 10/11/24 09:09 Received Hepatitis C Ab Qual. W/ RFX Stat Lab 10/11/24 09:09 Completed Lactic Acid Stat Lab 10/11/24 09:09 Completed Lipase Stat Lab 10/11/24 09:09 Completed UA [Urinalysis and Microscopic] Stat Lab 10/11/24 09:15 Completed Urine Culture Stat Micro 10/11/24 09:15 Received Medical Decision Narrative: Gigi Zurita is a 54-year-old male with a history of coronary artery disease, cardiac stenting on aspirin and clopidogrel, COPD, cardiac pacemaker/defibrillator, diverticulitis diagnosed 2 months ago who presents to the emergency department for complaints of abdominal pain, nausea and vomiting as well as hematuria and urinary urgency. Patient states that starting last night, he developed lower abdominal pain has had multiple episodes of nonbilious nonbloody vomiting. He states that his stools have been minimal recently and hard. He reports that today, his urine had blood in it with substance and is a dark orange. He reports a fever last night of 101 ?F. He denies any history of abdominal surgeries. On arrival, patient is normotensive, heart rate within normal limits, afebrile, breathing comfortably on room air with oxygen saturation 98% SpO2. Physical exam, stated above, revealed uncomfortable appearing male in no respiratory distress. Cardiopulmonary exam is unremarkable. Abdomen is tender in the suprapubic quadrant, more focally in the left lower quadrant with guarding in this area. Abdomen is otherwise soft and nonperitoneal take. He appears mildly dehydrated. Differential diagnosis includes, but is not limited to: Diverticulitis, intra- abdominal abscess, perforated viscus, urinary tract infection, pyelonephritis, ureterolithiasis, enterocolitis, peptic ulcer disease, among others. The most morbid conditions were considered and workup was based on these. Workup in the emergency room included: CT abdomen pelvis with IV contrast, CBC, CMP, lipase, urinalysis, lactic acid. Patient was treated 1 L lactated ringer, 4 mg IV morphine and 4 mg IV Zofran Workup shows leukocytosis of 15.6 with no left shift. No anemia. Electrolytes within normal limits. No TARYN. Lactate normal at 1.5. Liver enzymes and bilirubin within normal limits. Lipase normal at 63. Urinalysis shows 3+ protein, 3+ blood, nitrate negative, 1+ bilirubin and 2+ leukocyte esterase. Urine microscopy showed 10-20 white blood cells, 2+ bacteria, too numerous to count red blood cells. Will administer 2 g of IV Rocephin at this time. CT abdomen pelvis with IV contrast interpreted by me personally demonstrated urothelial thickening as well as mild left hydronephrosis and hydroureter. No evidence of pyelonephritis. Unremarkable right kidney. No other acute findings within the abdomen or pelvis. This is concerning for an upper and lower urinary tract infection. Patient was also administered 15 mg IV Toradol here in the emergency department for continued pain. He was encouraged to take Tylenol and ibuprofen at home. Patient was sent a prescription for 2-week course of clindamycin. He was encouraged to take the full 2-week course. Patient is also being prescribed Zofran for nausea. He was also encouraged to follow with his primary care physician. Return precautions were given. All questions were answered. He demonstrated understanding and was agreement this plan. He was then discharged from the emergency department in stable condition Critical Care Critical Care Time Critical Care Time: No
[2024-10-11] MEDS: MORPHINE 4MG/ML SYRINGE 4 MG IV (09:31)
[2024-10-11] MEDS: ONDANSETRON 4MG/2ML VIAL 4 MG IV (09:31)
[2024-10-11] MEDS: LACTATED RINGERS 1000ML 1,000 ML 999 ML IV (09:31)
[2024-10-11 09:33] LABS: Hematocrit 42.3 % (42.0-52.0); Hemoglobin 14.7 g/dL (14.1-18.0); Immature Granulocytes % 0.5 %; Mean Corpuscular HGB Conc 34.8 g/dL (31.8-35.4); Mean Corpuscular Hemoglobin 32.5 pg (27.0-31.2); Mean Corpuscular Volume 93.6 fl (80-94); Nucleated Red Blood Cells % 0 %; Platelet Count 282 K/mm3 (142-424); Red Blood Count 4.52 M/mm3 (4.60-6.20); Red Cell Distribution Width-SD 45.3 fL; White Blood Count 15.6 K/mm3 (4.8-10.8)
[2024-10-11 09:43] LABS: Albumin Level 4.2 g/dl (3.5-5.0); Chloride 104 mmol/L (98-107); Potassium 4.0 mmoL/L (3.5-5.1); Sodium 139 mmol/L (136-145)
[2024-10-11 09:46] LABS: Alanine Aminotransferase 25 U/L (12-78); Albumin/Globulin Ratio 1.3 (1.1-1.8); Alkaline Phosphatase 88 U/L (38-126); Anion Gap 12.0 mEq/L (5-15); Aspartate Amino Transferase 26 U/L (17-59); Bilirubin,Total 0.8 mg/dl (0.2-1.3); Blood Urea Nitrogen 12 mg/dl (9-20); Calcium 9.1 mg/dl (8.4-10.2); Carbon Dioxide 27 mmol/L (22.0-30.0); Creatinine Clearance Estimated 139 mL/min (50-200); Creatinine,Serum 0.80 mg/dl (0.66-1.25); Estimated Glomerular Filt Rate 101 ml/min (>60); GFR (African American) 122 ML/MIN (>60); Globulin 3.2 g/dL (1.3-3.2); Glucose 108 mg/dl (74-100); Lipase 63 U/L (23-300); Total Protein,Serum 7.4 g/dl (6.3-8.2)
[2024-10-11] MEDS: IOPAMIDOL-370 (76%);100ML BOTTLE 75 ML IV (09:59)
[2024-10-11] MEDS: SODIUM CHLORIDE 0.9% 10ML SYR (RAD ONLY) 10 ML IV (09:59)
[2024-10-11 10:07] LABS: Microscopic, Urine URINE MICROSCOPIC (MICROSCOPIC)
[2024-10-11 10:09] LABS: Color,Urine BROWN (Yellow); Glucose,Urine (UA) Negative (Negative); Ketones,Urine Negative (Negative); Leukocyte Esterase,Urine 2+ (Negative); PH,Urine 6.0 (5.0-8.5); Protein,Urine 3+ (Negative); Specific Gravity, Urine 1.025 (1.005-1.030); Urobilinogen,Urine 1.0 EU/dl (0.2)
[2024-10-11 10:13] LABS: Bilirubin,Urine 1+ (Negative)
[2024-10-11 10:34] LABS: Hepatitis C Ab Qual. W/ RFX NEGATIVE (Negative)
[2024-10-11 10:42] LABS: Bacteria,Urine 2+ /lpf; RBC,Urine TNTC #/hpf (0-3)
--- NOTE | 2024-10-11 11:03 | PC.NURSE ---
states blood cultures are not needed.
[2024-10-11] MEDS: KETOROLAC 30MG/ML VIAL 15 MG IV (11:13)
[2024-10-11 11:39] VITALS: BP 111/63; PULSE 85; RESP 15; TEMP 36.7; O2SAT 99
--- NOTE | 2024-10-16 13:38 | PC.NURSE ---
I called and notified the pt of his final urine culture results. I relayed that bactrim was sent to his pharmacy and that he should start it and discontinue the first antibiotic. pt verbalized his understanding.
== END 2024-10-11 11:40 | disposition home or self-care (01) ==
PROVIDERS: Emergency Provider Student in an Organized Health Care Education/Training Program; PCP Nurse Practitioner
DX: R10.30 Lower abdominal pain, unspecified (principal); N39.0 Urinary tract infection, site not specified; N13.30 Unspecified hydronephrosis; N13.4 Hydroureter; R11.2 Nausea with vomiting, unspecified; R39.15 Urgency of urination; R31.9 Hematuria, unspecified; F17.210 Nicotine dependence, cigarettes, uncomplicated
CPT/HCPCS: 74177; 80053; 81001; 83605; 83690; 85025; 86803; 87086; 87088; 87186; 87389; 96361; 96365; 96375; 99285; J0696; J1885; J2270; J2405; J7120; Q9967

== ENCOUNTER 2025-01-09 10:02 | Emergency (ER) | payer OTHER, SELFPAY ==
--- OUTSIDE RECORDS SUMMARY | 2024-12-15 13:18 | XMS_ITS | Encounter Summary ---
Author Organization Healthcare Address [address] [place] [address] Care Team Providers Care Slot Key Person Name Role Phone Pcp, No Primary Care Provider Unavailabl e Reason for Visit * Reason Comments medication adjustment Encounter Details Date Type Department Care Team (Latest Contact Info) Description 12/15/2024 2:18 PM EDT - 12/15/2024 11:17 PM EDT Hospital Encounter [facility] [address] [place] [address] Elin Light MD [address] [place] [address] Unspecified mood (affective) disorder (CMS/HCC) (Primary Dx) Discharge Disposition: Home or Self Care Social History Tobacco Use Types Packs/Day Years Used Date Smoking Tobacco: Every Day Cigarettes Tobacco Cessation:Ready to Q uit: Not Asked; Counseling Given: Not Answered Alcohol Use Standard Drinks/Week Comments Not Currently 0 (1 standard drink = 0.6 oz pur e alcohol) PHQ-2 Answer Date Recorded Patient Health Questionnaire-2 Score 5 12/15/2024 PHQ-9 Answer Date Recorded Patient Health Questionnaire-9 Score 20 12/15/2024 Sex and Gender Information Value Date Recorded Sex Assigned at Not on file Legal Sex Male 3:03 PM EDT Gender Identity Not on file Sexual Orientation Not on file documented as of this encounter Last Filed Vital Signs Vital Sign Reading Time Taken Comments Blood Pressure 147/71 12/15/2024 11:15 PM EDT Pulse 67 12/15/2024 11:15 PM EDT Temperature 36.3 C (97.4 F) 12/15/2024 11:15 PM EDT Respiratory Rate - - Oxygen Saturation 96% 12/15/2024 11:15 PM EDT Inhaled Oxygen Concentration - - Weight 87.5 kg (193 lb) 12/15/2024 2:51 PM EDT Height 185.4 cm (6' 1 ) 12/15/2024 2:51 PM EDT Body Mass Index 25.46 12/15/2024 2:51 PM EDT documented in this encounter Functional Status * Over the past 2 weeks, how often have you been bothered by any of the following problems? Question Answer Date of Assessment Author Patient Health Questionnaire -2 Score 5 12/15/2024 2:02 PM EDT Ewelina Mai RN * Calculated C-SSRS Risk Score (Lifetime/Recent) Answer Date of Assessment Author Low Risk 12/15/2024 1:58 PM EDT Wanda Mai RN * If you checked off any problems on this questionnaire, Question Answer Date of Assessment Author How difficult have these problems made it for you to do your work, take care of things at home, or get along with other people? Very difficult 12/15/2024 2:02 PM EDT Leslie Mai ea, RN * Over the past 2 weeks, how often have you been bothered by any of the following problems? Question Answer Date of Assessment Author Little interest or pleasure in doing things More than half the days 12/15/2024 2:02 PM EDT Ewelina Mai RN Feeling down, depressed, or hopeless Nearly every day 12/15/2024 2:02 PM AWAIST Ewelina Mai RN Trouble falling or staying asleep, or sleeping too much More than half the days 12/15/2024 2:02 PM EDT Ewelina Mai RN Feeling tired or having little energy More than half the days 12/15/2024 2:02 PM EDT Ewelina Mai RN Poor appetite or overeating Nearly every day 12/15/2024 2:02 PM AWAIST Ewelina Mai RN Feeling bad about yourself - or that you are a failure or have let yourself or your family down Nearly every day 12/15/2024 2:02 PM AWAIST Ewelina Mai RN Trouble concentrating on things, such as reading the newspaper or watching television More than half the days 12/15/2024 2:02 PM AWAIST Ewelina Mai RN Moving or speaking so slowly that other people could have noticed? Or the opposite - being so fidgety or restless that you have been moving around a lot more than usual. More than half the days 12/15/2024 2:02 PM EDT Ewelina Mai RN Thoughts that you would be better off or hurting yourself in some way Several days 12/15/2024 2:02 PM EDT Ewelina Mai RN Patient Health Questionnaire-9 Score 20 12/15/2024 2:02 PM EDT Ewelina Mai RN * Question Answer Date of Assessment Author 1. Wish to be (Past 1 Month) Yes 1:58 PM EDT Ewelina Mai RN 2. Non-Specific Active Suici ashley Thoughts (Past 1 Month) No 12/15/2024 1:58 PM EDT Leonela Mai RN 6. Suicidal Behavior (Lifetime) No 1:58 PM EDT Ewelina Mai RN documented as of this encounter Discharge Instructions * Discharge Instructions* Jenny Rothman PA - 12/15/2024 10:58 PM EDT Follow-Up / Post Discharge Instructions You are being discharged to Home. You should keep all scheduled follow up outpatient appointments for continued care. We strongly encourage you to keep all future appointments and advised to take all prescribed medications as instructed. You should abstain from all mood-altering substances except those prescribed by a licensed life and health agent. Your primary supports should monitor you for evidence of substance use and should alert your outpatient provider if use is suspected or confirmed. Your safety plan includes instructions to return to [facility] or the nearest ER if you become suicidal, homicidal, manic, psychotic, or develop any other urgent/emergent symptoms, or to call [phone]. Veterans call [phone] then Press 1. You voiced an understanding of the safety plan., but are welcome to ask questions at any time documented in this encounter Medications at Time of Discharge ARIPiprazole (Abilify) 5 MG tablet Take 1 tablet by mouth daily. 30 tablet 12/15/2024 01/14/2025 FLUoxetine (PROzac) 60 MG tablet Take 1 tablet by mouth daily. 30 tablet 12/15/2024 01/14/2025 traZODone (Desyrel) 50 MG tablet Take 1 tablet by mouth nightly. 30 tablet 12/15/2024 01/14/2025 documented as of this encounter Miscellaneous Notes * ED Notes - Jazzmine Magana RN - 12/15/2024 11:12 PM EDT Patient discharged to home/self care. Patient leaving via private vehicle. NAD noted at time of discharge. Patient provided with AVS and education, verbalized understanding. Patients belongings returned to patient and signed for. * [facility] Jazzmine Magana RN - 12/15/2024 11:09 PM EDT Images from the original note were not included. [address] Treating Mood Disorders Depression and bipolar disorder are two common mood disorders. Bipolar disorder is also called manic depression. These illnesses are often treated with medicines and therapy. Your health care provider can tell you more about treatments that can help you. A hospital or mental health clinic can also p rovide help. Mood disorders affect both you and your family. Support and resources for family members are important in the long-term management of these illnesses. Treatments for depression Depression causes you to feel sad, worthless, helpless, or hopeless. You may lose interest in things you used to enjoy. Treatment includes medicines and talk therapy. Antidepressant medicines change levels of brain chemicals to help you feel better. It's important to use only the medicine and dose prescribed for you. Don't take someone else's medicine. Don't share your prescription with others. Don?t stop medicines suddenly. Medicines usually need to be stopped over a period of time. This is to prevent symptoms from getting worse. It is also to protect you from possibly dangerous withdrawaleffects. If you believe that your medicine isn't working, talk with your provider. You may need a different medicine or a combination of medicines. Talk therapy is speaking with a trained counselor about your thoughts. Most people with depression do best with both medicine and talk therapy. Virtual mental health counseling, or telehealth care, may also be a good option for people who prefer not to have in-person therapy. Your health care provider may suggest electroconvulsive therapy (ECT) if these treatments don't work. This uses electric impulses to ease depression. There are different types of depression. Treatment depends on the type of depression you have and how severe it is. In some cases, treatment may be short- term (6 months or less). In other cases, you may need medicines on a long-term basis. Treatments for bipolar disorder People with bipolar disorder have intense mood swings. They move between deep sadness and rms-vy-eiepolq highs. Bipolar disorder is a serious, complex, chronic illness. Like diabetes or heart disease, it needs to be managed for the rest of your life. This condition is treated with medicines such aslithium. They help even out moods and prevent mood swings. Regular blood tests make sure that your medicine is at a safe level that still works. Just as for depression, don?t stop these medicines suddenly. Medicines usually need to be stopped over a period of time. This is to prevent symptoms from getting worse. It is also to protect you frompossibly dangerous withdrawal effects. Talk therapy can also help. Talking to a trained counselor about feelings and relationships can help you handle tough times. Counselors can help identify triggers. They can give you ways to cope withyour symptoms. For people who don't like in-person counseling, telehealth services, which provide virtual mental health care, may be a good option. To learn more The sources below can tell you more. They can also give names of clinics near you that offer treatment and free screenings. ? Depression and Bipolar Support Jackson at www.dbsalliance.org or 358-778-8286 ? International Foundation for Research and Education on Depression at www.ifred.org ? National Jackson on Mental Illness (MAYE) at www.maye.org or 860-059-QMHQ (212-613-8786) ? National [place] of Mental Health at www.nimh.nih.gov or 734-249-4941 ? National Suicide Prevention Lifeline at https://Nugg-itline.org or call 944 or 142-256-HXZL (118-131-8039). This resource is open 24 hours a day, 7 days a week. They can provide crisis interventionright away. They can also give you information on local resources. It is free and confidential. Last Reviewed Date: 2024 00:00:00 ?? 1316-1410 The [employer]. All rights reserved. This information is not intended as a substitute for professional medical care. Always follow your healthcare professional's instructions. * [facility] - Jazzmine Magana RN - 12/15/2024 11:09 PM EDT Images from the original note were not included. 25165 Understanding Mood Disorders Most people have mood changes every now and then. One day you may feel cranky. The next day you feel great. But with a mood disorder, mood changes aren't so simple. These disorders can cause great emotional pain. And they can greatly disrupt your life. Mood disorders can be treated. Talk with your doctor or a mental health provider. They can help. What are mood disorders? Mood disorders are illnesses that affect the way you think and feel. The symptoms may be quite severe. In most cases, they won't go away on their own. The most common mood disorders are depression and bipolar disorder. ? Depression. The main symptom of depression is a feeling of deep sadness. You may also feel hopeless. Or you may feel that life isn't worth living. At times you may think about suicide or . Most people have some sadness in their lives. These feelings often fade with time. But people with severe depression may not get better without treatment. ? Bipolar disorder. This is sometimes called manic-depressive illness. That's because it causes extreme mood swings. At times you may feel intensely happy and full of energy. These episodes are oftenfollowed by great despair. In some cases, you may have both extremes at once. It?s likely that you'll have phases when your mood shifts back and forth. Between episodes, your mood is mostly normal. You may have these mood swings just once in a while. Or they may happen a few times a year. But without treatment, they will likely keep happening for the rest of your life. What causes mood disorders? No one knows just what causes mood disorders. But they do run in families. Changes in certain chemicals in your brain also may play a role. Major life changes, stress, trauma, certain physical illnesses, and medicines can each result in a mood disorder. These disorders affect both men and women. They also may strike people of every age, race, and income level. There are many online and community resources for people with mood disorders. Talk with your doctorabout counselors, family support services, and support groups in your area. How daily issues affect your health Many things in your daily life impact your health. This can include transportation, money problems,housing, access to food, and children's court magistrate. If you can?t get to medical appointments, you may not receive the care you need. When money is tight, it may be hard to pay for medicines. And living far froma grocery store can make it hard to buy healthy food. If you have concerns in any of these or other areas, talk with your health care team. They may knowof local resources to assist you. Or they may have a staff person who can help. Last Reviewed Date: 2024 00:00:00 ?? [id number] The [employer]. All rights reserved. This information is not intended as a substitute for professional medical care. Always follow your healthcare professional's instructions. * Discharge Summary - Jenny Rothman PA - 12/15/2024 10:23 PM EDT Images from the original note were not included. [facility] Hospitalization Admit Date/Time: 12/15/2024 2:18 PM Admitting Attending: Discharge Date: 12/15/24 Discharge Attending Physician: Elin Light MD PCP name and Address: Pcp, No [address] [facility] / [place] [address] Chief Concern, Brief History of Present Illness, and Hospital Course Gigi Zurita is a 54 y/o male who [facility] and anxiety with SI with a plan to shoot himself in the [place]. [facility]igi Zurita is a 54 y.o. male with reported hx of depression, anxiety presenting via private vehicle with SI. Patient reports worsening mood over the last few weeks and beganhaving SI with a plan to walk into the riley and shoot himself. Patient does have firearms in the home but the has moved them to a safe and changed the code so he does not have access. Patient started on fluoxetine in 2023 which he found to be helpful in making him feel less on edge. Several injuries have made it difficult for patient to work which significantly impacts his mood I just feelworthless . Many protective factors present - loving , good relationship with his 3 children, has 6 granddaughters. Patient reports difficulty with both falling and staying asleep but is improvedwith nightly THC. Patient is open to medication changes and getting set up with outpatient services I'll do whatever needs to be done . Upon this providers evaluation, patient is calm, cooperative, and future oriented. Patient is feeling much better since receiving the medication. Patient would like a prescription sent to his pharmacy. He denies SI/HI/AVH/paranoia/lydia. Patient reports having a great support system at home with his , children, and grandchildren. He was able to talk to his family today and it helped lift hisspirits . He reports his main thing is not feeling good enough since he cannot work any more and ishaving a hard time wrapping his mind around needing disability. He states he has been looking for things to do around the house to keep him preoccupied. He has weapons in the home, but his has locked them in the safe and he does not have access to the code. He feels safe to return home and has no safety concerns if he were to return home. See SW note for collateral. [facility] Patient has stabilized and is appropriate for discharge. EKG was obtained due to antipsychotic and cardiac history. EKG is normal and no intervention is needed at this time. 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 Lab work obtained and no interventions are required at this time. Discussed discharge with attending physician and we are in agreement with the plan. Patient will be discharged home to his in a safe and supportive environment. Medication List You have not been prescribed any medications. Discharge Diagnosis Final diagnoses: [F39] Unspecified mood (affective) disorder (CMS/HCC) Post Discharge Instructions Discharge Instructions Follow-Up / Post Discharge Instructions You are being discharged to Home. You should keep all scheduled follow up outpatient appointments for continued care. We strongly encourage you to keep all future appointments and advised to take all prescribed medications as instructed. You should abstain from all mood-altering substances except those prescribed by a licensed life and health agent. Your primary supports should monitor you for evidence of substance use and should alert your outpatient provider if use is suspected or confirmed. Your safety plan includes instructions to return to [facility] or the nearest ER if you become suicidal, homicidal, manic, psychotic, or develop any other urgent/emergent symptoms, or to call [phone]. Veterans call 988 then Press 1. You voiced an understanding of the safety plan., but are welcome to ask questions at any time Disposition Observation Provider Care Team: MAGGI Salcedo [[id number]] Are they the primary team?: Yes [1] Outpatient Follow-Up No future appointments. Test Results At Discharge Pending: Recent Results (from the past 24 hours) Hepatitis B Surface Antigen - [facility] Collection Time: 12/15/24 2:36 PM Result Value Ref Range Hepatitis B Surf Antigen Negative Negative Hepatitis C Antibody with Reflex to HCV Quant PCR - [facility] Collection Time: 12/15/24 2:36 PM Result Value Ref Range Hepatitis C Antibody Negative Negative CBC w/diff Collection Time: 12/15/24 2:36 PM Result Value Ref Range WBC Count 11.13 (H) 3.70 - 10.30 10*3/uL RBC Count 5.21 4.60 - 6.10 10*6/uL HGB 16.4 13.7 - 17.5 g/dL HCT 47.3 40.0 - 51.0 % Platelet Count 298 155 - 369 10*3/uL MCV 91 79 - 98 fL MCH 31.5 26.0 - 32.0 pg MCHC 34.7 30.7 - 35.5 g/dL RDW 13.4 11.5 - 14.5 % MPV 9.3 8.8 - 12.5 fL nRBC 0.0 <=0.0 per 100 WBCs Differential Type Automated Neutrophils % 59 % Lymphocytes % 28 % Monocytes % 5 % Eosinophils % 7 % Basophils % 1 % Immature Granulocytes % 0 % Neutrophils Absolute 6.55 (H) 1.60 - 6.10 10*3/uL Lymphocytes Absolute 3.10 1.20 - 3.90 10*3/uL Monocytes Absolute 0.60 0.30 - 0.90 10*3/uL Eosinophils Absolute 0.75 (H) 0.00 - 0.50 10*3/uL Basophils Absolute 0.10 0.00 - 0.10 10*3/uL Immature Granulocytes Absolute 0.03 0.00 - 0.06 10*3/uL CMP Collection Time: 12/15/24 2:36 PM Result Value Ref Range Glucose, Plasma 108 (H) 74 - 99 mg/dL BUN, Plasma 11 7 - 21 mg/dL Creatinine, Plasma 0.72 0.70 - 1.20 mg/dL BUN/Creatinine Ratio 15 Sodium, Plasma 139 136 - 145 mmol/L Potassium, Plasma 4.1 3.6 - 4.9 mmol/L Chloride, Plasma 107 97 - 107 mmol/L CO2, Plasma 21 (L) 22 - 29 mmol/L Anion Gap 11 6 - 16 mmol/L Total Calcium, Plasma 9.7 8.9 - 10.2 mg/dL Total Protein 7.5 6.3 - 7.9 g/dL Albumin, Plasma 4.5 3.5 - 5.2 g/dL AST, Plasma 24 10 - 50 U/L ALT, Plasma 22 10 - 50 U/L Alkaline Phosphatase, Plasma 81 40 - 115 U/L Total Bilirubin, Plasma 0.4 0.2 - 1.1 mg/dL eGFRcr 109.2 mL/min/1.73m*2 Thyroid Stimulating Hormone, Plasma Collection Time: 12/15/24 2:36 PM Result Value Ref Range Thyroid Stimulating Hormone, Plasma 0.50 0.40 - 4.20 uIU/mL Free T4, Plasma Collection Time: 12/15/24 2:36 PM Result Value Ref Range Free T4, Plasma 1.5 0.8 - 1.7 ng/dL Hemoglobin A1c Collection Time: 12/15/24 2:36 PM Result Value Ref Range Hemoglobin A1c 5.5 <5.7 % HIV 1 & 2 Antibody/Antigen Screen Collection Time: 12/15/24 2:36 PM Result Value Ref Range HIV 1 & 2 Antibody/Antigen Screen Non Reactive Non Reactive Pertinent Mental Status At Time of Discharge: Mental Status Exam Orientation: Alert and oriented to person, place, time, and situation Appearance and grooming: Appropriate Attitude towards examiner: Cooperative and appropriate Insight: Good Judgment: Good Mood: Euthymic Affect: Mood Congruent; full range Psychomotor level: Steady gait, no abnormal movements noted, no tics, no tremors, no extrapyramidalsymptoms. Speech: Normal rate, rhythm, and volume. 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 Thought Content: No suicidal or homicidal ideation, no delusions, no obsessions or compulsions, andno auditory, visual, tactile, or olfactory hallucinations. Calculated C-SSRS Risk Score (Lifetime/Recent): Low Risk Discharge Disposition/Condition Disposition: Home Condition: Stable (s/sx potential problems absent or manageable) I spent >30 minutes of patient care and instruction time in preparation for this discharge. Cosigned by Elin Light MD at 12/16/2024 7:41 AM EDT Associated attestation - Elin Light MD - 12/16/2024 7:41 AM EDT The patient was seen only by Advanced Practice Provider (AARON), and care was reviewed with me. EKG unavailable to my viewing in EMR. Will need outpatient EKG on follow up given initiation SGA. * Discharge Instr - Appointments - Jenny Robledo - 12/15/2024 6:15 PM EDT Patient has an appointment with Allan De Souza on 12/16/2024 at 2pm. Appointment is in person at [address] [place] [address] * Clinician Note - Jenny Robledo - 12/15/2024 5:48 PM EDT SW spoke with patient's , Natalya ([phone]). reports patient has been down and depressed. reports sometimes patients depression comes out as anger. reports patient has been down for a while but it has gotten worse the last 3-4 weeks. reports they are having a lot of financial difficulties. reports patient has had a major decrease in appetite. reports patient has had health issues. reports patient has told her that he has been thinking about suicide. reports she is comfortable with patient returning. reports there are firearms in the home but they are locked up and patient does not have access. * ED Notes - Ewelina Mai - 12/15/2024 2:57 PM EDT Pt gives consent to speak with his Natalya Zurita [phone]. * ED Provider Notes - Loren Burkett APRN - 12/15/2024 1:32 PM EDT [facility] Initial Eval Chief Concern & History Of Present Illness Gigi Zurita is a 54 y.o. male with reported hx of depression, anxiety presenting via private vehicle with SI. Patient reports worsening mood over the last few weeks and began having SI with a plan to walk into the riley and shoot himself. Patient does have firearms in the home but the has moved them to a safe and changed the code so he does not have access. Patient started on fluoxetine in 2023 which he found to be helpful in making him feel less on edge. Several injuries have made it difficult for patient to work which significantly impacts his mood I just feel worthless . Many protective factors present - loving , good relationship with his 3 children, has 6 granddaughters. Amina ent reports difficulty with both falling and staying asleep but is improved with nightly THC. Patient is open to medication changes and getting set up with outpatient services I'll do whatever needsto be done . Pt is currently followed by: n/a SI/SA/self injurious behavior: none Previous psych hospitalization: none Substances: THC IVDU: denies Current meds: fluoxetine 40mg daily, amlodipine, bisoprolol, cetirizine, clopidogrel Dispense report: reviewed. Legal: none Past Medical and Surgical History not significant other than: Problem List[1] Medications Ordered Prior to Encounter[2] Current Scheduled Medications[3] Current Continuous Medications[4] Current PRN Medications[5] Allergies[6] Collateral: Pt has agreed for SW to speak with the following: DASA Score:: 0 Calculated C-SSRS Risk Score (Lifetime/Recent): Low Risk Allergies Penicillins Medications Current Medications[7] Review of Systems Constitutional: Positive for fatigue. Psych Review of Symptoms: Anxiety: Generalized Anxiety Symptoms: Difficulty controlling worry and sleep disturbances due to anxiety. Depressive Symptoms: Depressed mood, decreased interest, fatigue, feelings of worthlessness, irritable, hopelessness, low self esteem and suicidal ideation. Psychotic Symptoms: Patient denied any symptoms. Pertinent Physical Exam findings: Physical Exam Vitals reviewed. Constitutional: General: He is not in acute distress. Appearance: He is well-developed. HENT: Head: Normocephalic and atraumatic. Eyes: Conjunctiva/sclera: Conjunctivae normal. Cardiovascular: Rate and Rhythm: Normal rate. Pulmonary: Effort: Pulmonary effort is normal. No respiratory distress. Skin: General: Skin is warm and dry. Neurological: Mental Status: He is alert. First Recorded Vitals ED Triage Vitals [12/15/24 1336] Temp Heart Rate Resp BP 36.4 ??C (97.5 ??F) 65 -- (!) 150/85 SpO2 Temp src Heart Rate Source Patient Position 96 % -- -- -- BP Location FiO2 (%) -- -- Labs No results found for this or any previous visit (from the past 24 hours). MENTAL STATUS EXAM: Mental Status Evaluation: Appearance: casually dressed Behavior: restless and fidgety Speech: normal volume Mood: anxious and depressed Affect: mood-congruent Thought Process: goal directed Thought Content: Delusions: No Hallucinations: No Homicidal: No Obsessions: No Suicidal: Yes Plan/Implementation related to SI: suicide precautions Sensorium: person, place, time/date, and situation Cognition: grossly intact Insight: good Judgment: good Problem based Plan and Disposition: - Admit to [facility], observe in therapeutic milieu. - Continue home medications if appropriate and available per formulary. -Increase fluoxetine for mood/anxiety and start aripiprazole for depression adjunct -Will consider med adjustment during [facility] stay. No further changes at this current time. - PDMP reviewed. - SW to obtain collateral. Connect with outpatient mental health. Determine dispo. - Labs pending and UDS results reviewed - no interventions indicated at this time. - PRNs if indicated. - Suicide Precautions in place. Recommend revaluation within 6 hours. [1] There is no problem list on file for this patient. [2] Current Facility-Administered Medications Medication Dose Route Frequency Provider Last Rate Last Admin acetaminophen (Tylenol) tablet 650 mg 650 mg Oral q6h PRN Burkett, Loren D, [place] aluminum & magnesium hydroxide-simethicone (Mylanta) 200-200-20 MG/5ML oral suspension 10 mL 10mL Oral q6h PRN Burkett, Loren D, [place] ARIPiprazole (Abilify) tablet 5 mg 5 mg Oral Daily Burkett, Loren D, [place] FLUoxetine (PROzac) capsule 20 mg 20 mg Oral Once Kwadwo Loren D, [place] hydrOXYzine pamoate (Vistaril) capsule 50 mg 50 mg Oral q6h PRN Burkett, Loren D, [place] magnesium hydroxide (Milk of Magnesia) 400 MG/5ML suspension 10 mL 10 mL Oral Daily PRN Kwadwo Loren D, [place] nicotine (Nicoderm CQ) 21 MG/24HR patch 1 patch 1 patch Transdermal Daily Kwadwo Loren D, [facility] No current outpatient medications on file. [3] ARIPiprazole, 5 mg, Oral, Daily FLUoxetine, 20 mg, Oral, Once nicotine, 1 patch, Transdermal, Daily [4] [5] PRN medications: acetaminophen, aluminum & magnesium hydroxide-simethicone, hydrOXYzine pamoate, magnesium hydroxide [6] Allergies Allergen Reactions Penicillins Other - please document in the comment field Pt states was an allergy as a kid [7] Current Facility-Administered Medications Medication Dose Route Frequency Provider Last Rate Last Admin acetaminophen (Tylenol) tablet 650 mg 650 mg Oral q6h PRN Burkett, Loren D, [place] aluminum & magnesium hydroxide-simethicone (Mylanta) 200-200-20 MG/5ML oral suspension 10 mL 10mL Oral q6h PRN Burkett, Loren D, [place] ARIPiprazole (Abilify) tablet 5 mg 5 mg Oral Daily Loren Burkett APRN FLUoxetine (PROzac) capsule 20 mg 20 mg Oral Once Loren Burkett APRN hydrOXYzine pamoate (Vistaril) capsule 50 mg 50 mg Oral q6h PRN Loren Burkett APRN magnesium hydroxide (Milk of Magnesia) 400 MG/5ML suspension 10 mL 10 mL Oral Daily PRN Loren Burkett APRN nicotine (Nicoderm CQ) 21 MG/24HR patch 1 patch 1 patch Transdermal Daily Loren Burkett APRN No current outpatient medications on file. Loren Burkett APRN 12/15/24 1424 * ED Triage Notes - Ewelina Mai - 12/15/2024 1:32 PM EDT Pt arrived at [facility] as a walk in with his for an increase in depression over the last few weeks stating he has had SI with a plan to shoot himself. Pt reports having guns at home that his currently has locked in a safe. Pt denies HI/AVH. Pt reports recent triggers being not being able towork/have income due to his health. Pt reports a history of depression, OCD, hypertension and reports having a pacemaker placed 2 years ago. Pt reports THC use to help with sleep and denies etoh use.[facility] process explained to pt and taken onto unit for further evaluation. documented in this encounter Plan of Treatment Not on file documented as of this encounter Procedures Procedure Name Priority Date/Time Associated Diagnosis Comments ECG ADULT STAT 12/15/2024 10:35 PM EDT HEPATITIS B SURFACE ANTIGEN - [facility] STAT 12/15/2024 2:36 PM EDT HEPATITIS C ANTIBODY WITH REFLEX TO HCV QUANT PCR - [facility] STAT 12/15/2024 2:36 PM EDT HIV 1/2 ANTIBODY/ANTIGEN SCREEN W/REFLEX TO HIV 1/2 ANTIBODY DIFFERENTIATION STAT 12/15/2024 2:36 PM EDT HIV 1/2 ANTIBODY/ANTIGEN SCREEN WITH REFLEX TO HIV I/II DIFFERENTIATION STAT 12/15/2024 2:36 PM EDT CBC WITH AUTO DIFFERENTIAL STAT 12/15/2024 2:36 PM EDT TSH STAT 12/15/2024 2:36 PM EDT FREE T4, PLASMA STAT 12/15/2024 2:36 PM EDT HEMOGLOBIN A1C STAT 12/15/2024 2:36 PM EDT COMPREHENSIVE METABOLIC PANEL, PLASMA STAT 12/15/2024 2:36 PM EDT documented in this encounter Results * EKG now - STAT (adult) (12/15/2024 10:35 PM EDT) EKG DIAGNOSIS CLASS Abnormal MUSE ECG Ventricular Rate 60 BPM MUSE ECG Atrial Rate 60 BPM MUSE ECG WA Interval 258 ms MUSE ECG QRSD Interval 100 ms MUSE ECG QT Interval 436 ms MUSE ECG QTC Interval 436 ms MUSE ECG P [place] 83 degrees MUSE ECG R [place] 22 degrees MUSE ECG T Wave [place] 50 degrees MUSE ECG Diagnosis Atrial-paced rhythm with prolonged AV conduction MUSE ECG Diagnosis Low voltage QRS MUSE ECG Diagnosis Abnormal ECG MUSE ECG Diagnosis MUSE ECG Diagnosis Confirmed by Gigi Lei ([id number]) on 12/24/2024 1:46:54 PM MUSE ECG 12/15/2024 10:3 5 PM EDT 12/24/2024 1:46 PM EDT us Jenny VIDAL ECG ORDERABLES Final Resul t MUSE ECG * HIV 1 & 2 Antibody/Antigen Screen (12/15/2024 2:36 PM EDT) HIV 1 & 2 Antibody/Antigen Screen Non Reactive Non Reactive 12/15/2024 5:01 PM EDT [facility] Comment:Screening for HIV 1 & 2 antibodies, and P24 antigen is NONREACTIVE. No confirmatory testing is required. Blood Venous blood specimen / Unknown Venipuncture / Unknown 12/15/2024 2:36 PM EDT 12/15/2024 2:36 PM EDT [facility] [employer] [facility] BLOOD ORDERABLES Final Result Performing Organization Address City/[facility]/ZIP Co de Phone Number [facility] [address] [place] [address] * Hemoglobin A1c (12/15/2024 2:36 PM EDT) Hemoglobin A1c 5.5 <5.7 % 12/15/2024 6:12 PM EDT [facility] Blood Venous blood specimen / Unknown Venipuncture / Unknown 12/15/2024 2:36 PM EDT 12/15/2024 2:36 PM EDT Narrative [facility] - 12/15/2024 6:12 PM EDT HA1C Interpretive Data: Diagnosis of Diabetes: Diabetic > or = 6.5% Pre-diabetic 5.7 to 6.4% Non-diabetic < or = 5.6% Glycemic Targets for Type I and Type II Diabetics: Non- Adults <7.0% Adults <6.0% Children and Adolescents <7.5% Source: [employer]. Standards of medical care in diabetes,2017. Diabetes Care.2017:40 (suppl 1):S1-S135. us Loren D Burkett [facility] LAB BLOOD ORDERABLES Final Result Performing Organization Address City/[facility] Co de Phone Number [facility] [address] [place] [address] * Free T4, Plasma (12/15/2024 2:36 PM EDT) Free T4, Plasma 1.5 0.8 - 1.7 ng/dL 12/15/2024 4:55 PM EDT [facility] Blood Venous blood specimen / Unknown Venipuncture / Unknown 12/15/2024 2:36 PM EDT 12/15/2024 2:36 PM EDT [employer] [facility] LAB BLOOD ORDERABLES Final Result Performing Organization Address City/[facility]/ZIP Co de Phone Number [facility] [address] [place] [address] * Thyroid Stimulating Hormone, Plasma (12/15/2024 2:36 PM EDT) Thyroid Stimulating Hormone, Plasma 0.50 0.40 - 4.20 uIU/mL 12/15/2024 4:55 PM EDT [facility] Blood Venous blood specimen / Unknown Venipuncture / Unknown 12/15/2024 2:36 PM EDT 12/15/2024 2:36 PM EDT us Loren D Babyoye [facility] LAB BLOOD ORDERABLES Final Result Performing Organization Address [facility] Co de Phone Number [facility] [address] [place] [address] * (ABNORMAL) CMP (12/15/2024 2:36 PM EDT) Glucose, Plasma 108(H) 74 - 99 mg/dL 12/15/2024 4:55 PM EDT [facility] BUN, Plasma 11 7 - 21 mg/dL 12/15/2024 4:55 PM EDT [facility] Creatinine, Plasma 0.72 0.70 - 1.20 mg/dL 12/15/2024 4:55 PM EDT [facility] BUN/Creatinine Ratio 15 12/15/2024 4:55 PM EDT [facility] Sodium, Plasma 139 136 - 145 mmol/L 12/15/2024 4:55 PM EDT [facility] Potassium, Plasma 4.1 3.6 - 4.9 mmol/L 12/15/2024 4:55 PM EDT [facility] Chloride, Plasma 107 97 - 107 mmol/L 12/15/2024 4:55 PM EDT [facility] CO2, Plasma 21(L) 22 - 29 mmol/L 12/15/2024 4:55 PM EDT [facility] Anion Gap 11 6 - 16 mmol/L 12/15/2024 4:55 PM EDT [facility] Total Calcium, Plasma 9.7 8.9 - 10.2 mg/dL 12/15/2024 4:55 PM EDT [facility] Total Protein 7.5 6.3 - 7.9 g/dL 12/15/2024 4:55 PM EDT [facility] Albumin, Plasma 4.5 3.5 - 5.2 g/dL 12/15/2024 4:55 PM EDT [facility] AST, Plasma 24 10 - 50 U/L 12/15/2024 4:55 PM EDT [facility] ALT, Plasma 22 10 - 50 U/L 12/15/2024 4:55 PM EDT [facility] Alkaline Phosphatase, Plasma 81 40 - 115 U/L 12/15/2024 4:55 PM EDT [facility] Total Bilirubin, Plasma 0.4 0.2 - 1.1 mg/dL 12/15/2024 4:55 PM EDT [facility] eGFRcr 109.2 mL/min/1.7 3m*2 12/15/2024 4:55 PM EDT [facility] Comment:Reported eGFRcr in m L/min/1.73m2 is based the CKD-EPI 2020 equation that does not use a race coefficient. Blood Venous blood specimen / Unknown Venipuncture / Unknown 12/15/2024 2:36 PM EDT 12/15/2024 2:36 PM EDT us Loren Burkett APRN LAB BLOOD ORDERABLES Final Result [facility] [address] [place] [address] * (ABNORMAL) CBC w/diff (12/15/2024 2:36 PM EDT) WBC Count 11.13(H) 3.70 - 10.30 10*3/uL LAB HEMATOLOGY METHOD 12/15/2024 4:33 PM EDT [facility] RBC Count 5.21 4.60 - 6.10 10*6/uL LAB HEMATOLOGY METHOD 12/15/2024 4:33 PM EDT [facility] HGB 16.4 13.7 - 17.5 g/dL LAB HEMATOLOGY METHOD 12/15/2024 4:33 PM EDT [facility] HCT 47.3 40.0 - 51.0 % LAB HEMATOLOGY METHOD 12/15/2024 4:33 PM EDT [facility] Platelet Count 298 155 - 369 10*3/uL LAB HEMATOLOGY METHOD 12/15/2024 4:33 PM EDT [facility] MCV 91 79 - 98 fL LAB HEMATOLOGY METHOD 12/15/2024 4:33 PM EDT [facility] MCH 31.5 26.0 - 32.0 pg LAB HEMATOLOGY METHOD 12/15/2024 4:33 PM EDT [facility] MCHC 34.7 30.7 - 35.5 g/dL LAB HEMATOLOGY METHOD 12/15/2024 4:33 PM EDT [facility] RDW 13.4 11.5 - 14.5 % LAB HEMATOLOGY METHOD 12/15/2024 4:33 PM EDT [facility] MPV 9.3 8.8 - 12.5 fL LAB HEMATOLOGY METHOD 12/15/2024 4:33 PM EDT [facility] nRBC 0.0 <=0.0 per 100 WBCs LAB HEMATOLOGY METHOD 12/15/2024 4:33 PM EDT [facility] Differential Type Automated LAB HEMATOLOGY METHOD 12/15/2024 4:33 PM EDT [facility] Neutrophils % 59 % LAB HEMATOLOGY METHOD 12/15/2024 4:33 PM EDT [facility] Lymphocytes % 28 % LAB HEMATOLOGY METHOD 12/15/2024 4:33 PM EDT [facility] Monocytes % 5 % LAB HEMATOLOGY METHOD 12/15/2024 4:33 PM EDT [facility] Eosinophils % 7 % LAB HEMATOLOGY METHOD 12/15/2024 4:33 PM EDT [facility] Basophils % 1 % LAB HEMATOLOGY METHOD 12/15/2024 4:33 PM EDT [facility] Immature Granulocytes % 0 % LAB HEMATOLOGY METHOD 12/15/2024 4:33 PM EDT [facility] Neutrophils Absolute 6.55(H) 1.60 - 6.10 10*3/uL LAB HEMATOLOGY METHOD 12/15/2024 4:33 PM EDT [facility] Lymphocytes Absolute 3.10 1.20 - 3.90 10*3/uL LAB HEMATOLOGY METHOD 12/15/2024 4:33 PM EDT [facility] Monocytes Absolute 0.60 0.30 - 0.90 10*3/uL LAB HEMATOLOGY METHOD 12/15/2024 4:33 PM EDT [facility] Eosinophils Absolute 0.75(H) 0.00 - 0.50 10*3/uL LAB HEMATOLOGY METHOD 12/15/2024 4:33 PM EDT [facility] Basophils Absolute 0.10 0.00 - 0.10 10*3/uL LAB HEMATOLOGY METHOD 12/15/2024 4:33 PM EDT [facility] Immature Granulocytes Absolute 0.03 0.00 - 0.06 10*3/uL LAB HEMATOLOGY METHOD 12/15/2024 4:33 PM EDT [facility] Blood Venous blood specimen / Unknown Venipuncture / Unknown 12/15/2024 2:36 PM EDT 12/15/2024 2:36 PM EDT Narrative [facility] - 12/15/2024 4:33 PM EDT Therapeutic decision making should be based on absolute values, rather than percentages. Loren Diaz Burkett [facility] LAB BLOOD ORDERABLES Final Result Performing Organization Address City/[facility]/ZIP Co de Phone Number [facility] [address] [place] [address] * Hepatitis C Antibody with Reflex to HCV Quant PCR - [facility] (12/15/2024 2:36 PM EDT) Hepatitis C Antibody Negative Negative 12/15/2024 5:01 PM EDT [facility] Blood Venous blood specimen / Unknown Venipuncture / Unknown 12/15/2024 2:36 PM EDT 12/15/2024 2:36 PM EDT Loren D Babyoye [facility] LAB BLOOD ORDERABLES Final Result [facility] [address] [place] [address] * Hepatitis B Surface Antigen - [facility] (12/15/2024 2:36 PM EDT) Hepatitis B Surf Antigen Negative Negative 12/15/2024 6:48 PM EDT [facility] Blood Venous blood specimen / Unknown Venipuncture / Unknown 12/15/2024 2:36 PM EDT 12/15/2024 2:36 PM EDT us Loren Burkett [facility] LAB BLOOD ORDERABLES Final Result [facility] [address] [place] [address] documented in this encounter Visit Diagnoses Diagnosis Unspecified mood (affective) disorder (CMS/HCC)- Primary Hypertension Unspecified essential hypertension documented in this encounter Administered Medications Inactive Administered Medications - up to 3 most recent administrations Medication Order MAR Action Action Date Dose Rate Site acetaminophen (Tylenol) tablet 650 mg 650 mg, Oral, Every 6 hours PRN, Starting on Fri12/15/24 at 1352, Until Pratibha 12/16/24 at 0118, Routine, mild pain, moderate pain aluminum & magnesium hydroxide-simethicone (Mylanta) 200-200-20 MG/5ML oral suspension 10 mL 10 mL, Oral, Every 6 hours PRN, Starting on Fri12/15/24 at 1352, Until Pratibha 12/16/24 at 0118, Routine, indigestion, heartburnIndications:UGI Symptoms ARIPiprazole (Abilify) tablet 5 mg 5 mg, Oral, Daily, First dose on Fri12/15/24 at 1415, Until Discontinued, Routine Given 12/15/2024 2:20 PM EDT 5 mg FLUoxetine (PROzac) capsule 20 mg 20 mg, Oral, Once, 1 dose, On Fri12/15/24 at 1415, STAT Given 12/15/2024 2:20 PM EDT 20 mg hydrOXYzine pamoate (Vistaril) capsule 50 mg 50 mg, Oral, Every 6 hours PRN, Starting on Fri12/15/24 at 1352, Until Pratibha 12/16/24 at 0118, Routine, anxietyIndications:Anxie ty Given 12/15/2024 2:20 PM EDT 50 mg magnesium hydroxide (Milk of Magnesia) 400 MG/5ML suspension 10 mL 10 mL, Oral, Daily PRN, Starting on Fri12/15/24 at 1352, Until Pratibha 12/16/24 at 0118, Routine, constipationIndications: Constipation nicotine (Nicoderm CQ) 21 MG/24HR patch 1 patch 1 patch, Transdermal, Daily, First dose on Fri12/15/24 at 1400, Until Discontinued, Routine Medication Applied 12/15/2024 2:20 PM EDT 1 patch Right Arm documented in this encounter Active and Recently Administered Medications Times are shown in EDT. Scheduled Medication Order 12/13/2024 12/14/2024 12/15/2024 ARIPiprazole (Abilify) tablet 5 mg 5 mg, Oral, Daily, First dose on Fri12/15/24 at 1415, Until Discontinued, Routine 1420 (Given - Provid er: Ewelina Mai) FLUoxetine (PROzac) capsule 20 mg (COMPLETED) 20 mg, Oral, Once, 1 dose, On Fri12/15/24 at 1415, STAT 1420 (Given - Provid er: Ewelina Mai) nicotine (Nicoderm CQ) 21 MG/24HR patch 1 patch 1 patch, Transdermal, Daily, First dose on Fri12/15/24 at 1400, Until Discontinued, Routine 1420 (Medication Aaron lied - Provider: Ewelina Mai) PRN Medication Order 12/13/2024 12/14/2024 12/15/2024 acetaminophen (Tylenol) tablet 650 mg 650 mg, Oral, Every 6 hours PRN, Starting on Fri12/15/24 at 1352, Until Pratibha 12/16/24 at 0118, Routine, mild pain, moderate pain aluminum & magnesium hydroxide-simethicone (Mylanta) 200-200-20 MG/5ML oral suspension 10 mL 10 mL, Oral, Every 6 hours PRN, Starting on Fri12/15/24 at 1352, Until Pratibha 12/16/24 at 0118, Routine, indigestion, heartburn hydrOXYzine pamoate (Vistaril) capsule 50 mg 50 mg, Oral, Every 6 hours PRN, Starting on Fri12/15/24 at 1352, Until Pratibha 12/16/24 at 0118, Routine, anxiety 1420 (Given - Provid er: Ewelina Mai) magnesium hydroxide (Milk of Magnesia) 400 MG/5ML suspension 10 mL 10 mL, Oral, Daily PRN, Starting on Fri12/15/24 at 1352, Until Pratibha 12/16/24 at 0118, Routine, constipation documented in this encounter Additional Health Concerns Assessment Noted Time PHQ-9 Depression Total Score: 20 025 2:02 PM EDT documented as of this encounter Care Teams Slot Key Person Relationship Specialty Start Date End Date Pcp, No [address] [place] [address] PCP - General Family Medicine 12/15/24 documented as of this encounter
--- OUTSIDE RECORDS SUMMARY | 2025-01-09 10:10 | XMS_ITS | Clinical Summary ---
Author Organization Healthcare Address [address] [place] [address] Care Team Providers Care Dog License Officer Supervisor Name Role Phone Pcp, No Primary Care Provider Unavailabl e Allergies Active Allergy Reactions Criticality Noted Date Comments Penicillins Other - please docum ent in the comment field Low 12/15/2024 Pt states was an allergy as a kid Medications ARIPiprazole (Abilify) 5 MG tablet Take 1 tablet by mouth daily. 30 tablet 12/15/2024 5 Active FLUoxetine (PROzac) 60 MG tablet Take 1 tablet by mouth daily. 30 tablet 12/15/2024 5 Active traZODone (Desyrel) 50 MG tablet Take 1 tablet by mouth nightly. 30 tablet 12/15/2024 5 Active Active Problems Problem Noted Date Diagnosed Date Hypertension Encounters Date Type Department Care Team Description 12/15/2024 2:18 PM EDT - 12/15/2024 11:17 PM EDT Hospital Encounter [facility] [address] [place] [address] Elin Light MD Unspecified mood (affective) disorder (CMS/HCC) (Primary Dx) Discharge Disposition: Home or Self Care 12/15/2024 Travel from Last 3 Months Social History Tobacco Use Types Packs/Day Years [...] on file Sexual Orientation Not on file Last Filed Vital Signs Vital Sign Reading [...] Mass Index 25.46 12/15/2024 2:51 PM EDT Plan of Treatment Health Maintenance Due Date Last Done Comments [facility]-Hepatitis C Screening 1971 [facility]-Infant/Child/Adol SDOH Screenings 1971 [facility]-Obesity Intervention 1977 [facility]- SDOH Screenings 1989 [facility]-Adult SDOH Screenings 1989 [facility]-Hepatitis B Vaccines (1 of 3 - 19+ 3-dose series) 1990 CT Colonography 01/02/2016 Colonoscopy 01/02/2016 FIT 01/02/2016 FOBT 01/02/2016 Sigmoidoscopy 01/02/2016 [id number] Vaccine ( - season) 2024 [facility]-Influenza Vaccine (#1) 11/01/202401/20, 12/03/2019, 12/01/2017, Additional history exists [facility]-Pneumococcal Vaccine: 50+ Years (2 of 2 - PPSV23, PCV20, or PCV21) 08/17/2025 08/17/2024 [facility]-Depression Screening 12/15/2025 12/15/2024, 12/01 FIT-DNA 11/13/2027 11/12/2024 [facility]-Colorectal Cancer Screening 11/13/2027 [facility]-DTaP,Tdap,and Td Vaccines (6 - Td or Tdap) 04/09/2034 04/09/2024, 12/07/2021, 05/29/2016, Additional history exists [facility]-Zoster Vaccines Completed 08/17/2024, 4 [facility]-HIV Screening Completed 12/15/2024 HPV Vaccines Aged Out No longer eligi [...] this topic Medical Devices Implanted Type 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 Machine 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 Package Yarns Device Identifier Shelf Expiration Date Model / Serial / Lot Ra Lead Tank Top TV Scientific-01/02 Implanted:01/20 (Quantity not on file) Lead Chest Aurora Feint [id number] / [id number] / Rv Lead Oxford Particle Code-01/02 Implanted:01/20 (Quantity not on file) Lead Chest Aurora Feint [id number] / [id number] / Accolade Mri Pacemaker [employer] Software-01/02 Implanted:01/20 (Quantity not on file) Pacemaker Chest Aurora Feint [id number] / [id number] / Description:LEAD IMPLANTS -Tank Top TV Scientific RA LEAD: [id number]/ Procedures Procedure Name Priority Date/Time Associated Diagnosis Comments ECG ADULT STAT 12/15/2024 10:35 PM EDT HIV 1/2 ANTIBODY/ANTIGEN SCREEN WITH REFLEX TO HIV I/II DIFFERENTIATION STAT 12/15/2024 2:36 PM EDT HEMOGLOBIN A1C STAT 12/15/2024 2:36 PM EDT FREE T4, PLASMA STAT 12/15/2024 2:36 PM EDT TSH STAT 12/15/2024 2:36 PM EDT COMPREHENSIVE METABOLIC PANEL, PLASMA STAT 12/15/2024 2:36 PM EDT CBC WITH AUTO DIFFERENTIAL STAT 12/15/2024 2:36 PM EDT HIV 1/2 ANTIBODY/ANTIGEN SCREEN W/REFLEX TO HIV 1/2 ANTIBODY DIFFERENTIATION STAT 12/15/2024 2:36 PM EDT HEPATITIS C ANTIBODY WITH REFLEX TO HCV QUANT PCR - EMPATH STAT 12/15/2024 2:36 PM EDT HEPATITIS B SURFACE ANTIGEN - EMPATH STAT 12/15/2024 2:36 PM EDT from Last 3 Months Results * EKG now - STAT (adult) (12/15/2024 10:35 PM EDT) EKG DIAGNOSIS CLASS Abnormal MUSE ECG Ventricular Rate 60 BPM MUSE ECG Atrial Rate 60 BPM MUSE ECG TN Interval 258 ms MUSE ECG QRSD Interval 100 ms MUSE ECG QT Interval 436 ms MUSE ECG QTC Interval 436 ms MUSE ECG P [place] 83 degrees MUSE ECG R [place] 22 degrees MUSE ECG T Wave [place] 50 degrees MUSE ECG Diagnosis Atrial-paced rhythm with prolonged AV conduction MUSE ECG Diagnosis Low voltage QRS MUSE ECG Diagnosis Abnormal ECG MUSE ECG Diagnosis MUSE ECG Diagnosis Confirmed by Gigi Lei ([id number]) on 12/24/2024 1:46:54 PM MUSE ECG 12/15/2024 10:3 5 PM EDT 12/24/2024 1:46 PM EDT us Jenny Rothman PA ECG ORDERABLES Final Resul t MUSE ECG * Hepatitis B Surface Antigen - Empath (12/15/2024 2:36 PM EDT) Hepatitis B Surf Antigen Negative Negative 12/15/2024 6:48 PM EDT [facility] Blood Venous blood specimen / Unknown Venipuncture / Unknown 12/15/2024 2:36 PM EDT 12/15/2024 2:36 PM EDT us Loren Burkett APRN LAB BLOOD ORDERABLES Final Result [facility] [address] [place] [address] * Hepatitis C Antibody with Reflex to HCV Quant PCR - Empath (12/15/2024 2:36 PM EDT) [facility] Hepatitis C Antibody Negative Negative 12/15/2024 5:01 PM EDT [facility] Blood Venous blood specimen / Unknown Venipuncture / Unknown 12/15/2024 2:36 PM EDT 12/15/2024 2:36 PM EDT Loren Diaz Burkett [employer] LAB BLOOD ORDERABLES Final Result [facility] [address] [place] [address] * HIV 1 & 2 Antibody/Antigen Screen (12/15/2024 2:36 PM EDT) [facility] HIV 1 & 2 Antibody/Antigen Screen Non Reactive Non Reactive 12/15/2024 5:01 PM EDT [facility] Comment:Screening for HIV 1 & 2 antibodies, and P24 antigen is NONREACTIVE. No confirmatory testing is required. Blood Venous blood specimen / Unknown Venipuncture / Unknown 12/15/2024 2:36 PM EDT 12/15/2024 2:36 PM EDT Loren Diaz Burkett [employer] LAB BLOOD ORDERABLES Final Result [facility] [address] [place] [address] * (ABNORMAL) CBC w/diff (12/15/2024 2:36 PM EDT) [facility] WBC Count 11.13(H) 3.70 - 10.30 10*3/uL LAB HEMATOLOGY METHOD 12/15/2024 4:33 PM EDT [facility] RBC Count 5.21 4.60 - 6.10 10*6/uL LAB HEMATOLOGY METHOD 12/15/2024 4:33 PM EDT [facility] HGB 16.4 13.7 - 17.5 g/dL LAB HEMATOLOGY METHOD 12/15/2024 4:33 PM EDT [facility] HCT 47.3 40.0 - 51.0 % LAB HEMATOLOGY METHOD 12/15/2024 4:33 PM EDT [facility] Platelet Count 298 155 - 369 10*3/uL LAB HEMATOLOGY METHOD 12/15/2024 4:33 PM EDT [facility] MCV 91 79 - 98 fL LAB HEMATOLOGY METHOD 12/15/2024 4:33 PM EDT [facility] MCH 31.5 26.0 - 32.0 pg LAB HEMATOLOGY METHOD 12/15/2024 4:33 PM EDT [facility] MCHC 34.7 30.7 - 35.5 g/dL LAB HEMATOLOGY METHOD 12/15/2024 4:33 PM EDT [facility] RDW 13.4 11.5 - 14.5 % LAB HEMATOLOGY METHOD 12/15/2024 4:33 PM EDT [facility] MPV 9.3 8.8 - 12.5 fL LAB HEMATOLOGY METHOD 12/15/2024 4:33 PM EDT [facility] nRBC 0.0 <=0.0 per 100 WBCs LAB HEMATOLOGY METHOD 12/15/2024 4:33 PM EDT [facility] Differential Type Automated LAB HEMATOLOGY METHOD 12/15/2024 4:33 PM EDT [facility] Neutrophils % 59 % LAB HEMATOLOGY METHOD 12/15/2024 4:33 PM EDT [facility] Lymphocytes % 28 % LAB HEMATOLOGY METHOD 12/15/2024 4:33 PM EDT [facility] Monocytes % 5 % LAB HEMATOLOGY METHOD 12/15/2024 4:33 PM EDT [facility] Eosinophils % 7 % LAB HEMATOLOGY METHOD 12/15/2024 4:33 PM EDT [facility] Basophils % 1 % LAB HEMATOLOGY METHOD 12/15/2024 4:33 PM EDT [facility] Immature Granulocytes % 0 % LAB HEMATOLOGY METHOD 12/15/2024 4:33 PM EDT [facility] Neutrophils Absolute 6.55(H) 1.60 - 6.10 10*3/uL LAB HEMATOLOGY METHOD 12/15/2024 4:33 PM EDT [facility] Lymphocytes Absolute 3.10 1.20 - 3.90 10*3/uL LAB HEMATOLOGY METHOD 12/15/2024 4:33 PM EDT [facility] Monocytes Absolute 0.60 0.30 - 0.90 10*3/uL LAB HEMATOLOGY METHOD 12/15/2024 4:33 PM EDT [facility] Eosinophils Absolute 0.75(H) 0.00 - 0.50 10*3/uL LAB HEMATOLOGY METHOD 12/15/2024 4:33 PM EDT [facility] Basophils Absolute 0.10 0.00 - 0.10 10*3/uL LAB HEMATOLOGY METHOD 12/15/2024 4:33 PM EDT [facility] Immature Granulocytes Absolute 0.03 0.00 - 0.06 10*3/uL LAB HEMATOLOGY METHOD 12/15/2024 4:33 PM EDT [facility] Blood Venous blood specimen / Unknown Venipuncture / Unknown 12/15/2024 2:36 PM EDT 12/15/2024 2:36 PM EDT Narrative [facility] - 12/15/2024 4:33 PM EDT Therapeutic decision making should be based on absolute values, rather than percentages. Loren Diaz [employer] LAB BLOOD ORDERABLES Final Result Performing Organization Address City/[facility]/ZIP Co de Phone Number [facility] [address] [place] [address] * Thyroid Stimulating Hormone, Plasma (12/15/2024 2:36 PM EDT) Thyroid Stimulating Hormone, Plasma 0.50 0.40 - 4.20 uIU/mL 12/15/2024 4:55 PM EDT [facility] Blood Venous blood specimen / Unknown Venipuncture / Unknown 12/15/2024 2:36 PM EDT 12/15/2024 2:36 PM EDT Loren Joe [employer] LAB BLOOD ORDERABLES Final Result [facility] [address] [place] [address] * Free T4, Plasma (12/15/2024 2:36 PM EDT) Free T4, Plasma 1.5 0.8 - 1.7 ng/dL 12/15/2024 4:55 PM EDT [facility] Blood Venous blood specimen / Unknown Venipuncture / Unknown 12/15/2024 2:36 PM EDT 12/15/2024 2:36 PM EDT Loren Joe Burkett [employer] LAB BLOOD ORDERABLES Final Result Performing Organization Address City/[facility]/ZIP Co de Phone Number [facility] [address] [place] [address] * Hemoglobin A1c (12/15/2024 2:36 PM EDT) Hemoglobin A1c 5.5 <5.7 % 12/15/2024 6:12 PM EDT [facility] Blood Venous blood specimen / Unknown Venipuncture / Unknown 12/15/2024 2:36 PM EDT 12/15/2024 2:36 PM EDT Narrative [facility] - 12/15/2024 6:12 PM EDT HA1C Interpretive Data: Diagnosis of Diabetes: Diabetic > or = 6.5% Pre-diabetic 5.7 to 6.4% Non-diabetic < or = 5.6% Glycemic Targets for Type I and Type II Diabetics: Non- Adults <7.0% Adults <6.0% Children and Adolescents <7.5% Source: [place] [employer]. Standards of medical care in diabetes,2017. Diabetes Care.2017:40 (suppl 1):S1-S135. Loren Diaz Burkett [employer] LAB BLOOD ORDERABLES Final Result Performing Organization Address City/[facility]/ZIP Co de Phone Number [facility] [address] [place] [address] * (ABNORMAL) CMP (12/15/2024 2:36 PM EDT) Glucose, Plasma 108(H) 74 - 99 mg/dL 12/15/2024 4:55 PM EDT [facility] BUN, Plasma 11 7 - 21 mg/dL 12/15/2024 4:55 PM EDT [facility] Creatinine, Plasma 0.72 0.70 - 1.20 mg/dL 12/15/2024 4:55 PM EDT [facility] BUN/Creatinine Ratio 15 12/15/2024 4:55 PM EDT [facility] Sodium, Plasma 139 136 - 145 mmol/L 12/15/2024 4:55 PM EDT [facility] Potassium, Plasma 4.1 3.6 - 4.9 mmol/L 12/15/2024 4:55 PM EDT [facility] Chloride, Plasma 107 97 - 107 mmol/L 12/15/2024 4:55 PM EDT [facility] CO2, Plasma 21(L) 22 - 29 mmol/L 12/15/2024 4:55 PM EDT [facility] Anion Gap 11 6 - 16 mmol/L 12/15/2024 4:55 PM EDT [facility] Total Calcium, Plasma 9.7 8.9 - 10.2 mg/dL 12/15/2024 4:55 PM EDT [facility] Total Protein 7.5 6.3 - 7.9 g/dL 12/15/2024 4:55 PM EDT [facility] Albumin, Plasma 4.5 3.5 - 5.2 g/dL 12/15/2024 4:55 PM EDT [facility] AST, Plasma 24 10 - 50 U/L 12/15/2024 4:55 PM EDT [facility] ALT, Plasma 22 10 - 50 U/L 12/15/2024 4:55 PM EDT [facility] Alkaline Phosphatase, Plasma 81 40 - 115 U/L 12/15/2024 4:55 PM EDT [facility] Total Bilirubin, Plasma 0.4 0.2 - 1.1 mg/dL 12/15/2024 4:55 PM EDT [facility] eGFRcr 109.2 mL/min/1.7 3m*2 12/15/2024 4:55 PM EDT [facility] Comment:Reported eGFRcr in m L/min/1.73m2 is based the CKD-EPI 2020 equation that does not use a race coefficient. Blood Venous blood specimen / Unknown Venipuncture / Unknown 12/15/2024 2:36 PM EDT 12/15/2024 2:36 PM EDT us Loren Burkett [employer] LAB BLOOD ORDERABLES Final Result [facility] [address] [place] [address] from Last 3 Months Insurance Care Teams Dog License Officer Supervisor Relationship Specialty Start Date End Date Pcp, No [address] [place] [address] PCP - General Family Medicine 12/15/24
--- OUTSIDE RECORDS SUMMARY | 2025-01-09 10:10 | XMS_ITS | Encounter Summary ---
Author Organization Healthcare Address [address] [place] [address] Care Team Providers Care Retail Marketing Specialist Name Role Phone Pcp, No Primary Care Provider Unavailabl e Encounter Details Date Type Department Care Team (Latest Contact Info) Description 12/15/2024 Travel Social History Tobacco Use Types Packs/Day Years Used Date Smoking Tobacco: Every Day Cigarettes Alcohol Use Standard Drinks/Week Comments Not Currently [...] on file documented as of this encounter Functional Status * Over the [...] 2:02 PM AWAIST Ewelina Mai RN Feeling down, depressed, or hopeless Nearly every day 12/15/2024 2:02 PM EDT Ewelina Mai RN Trouble falling or staying asleep, or sleeping too much More than half the days 12/15/2024 2:02 PM EDT Ewelina Mai RN Feeling tired or having little energy More than half the days 12/15/2024 2:02 PM EDT Ewelina Mai RN Poor appetite or overeating Nearly every day 12/15/2024 2:02 PM EDT Ewelina Mai RN Feeling bad about yourself - or that you are a failure or have let yourself or your family down Nearly every day 12/15/2024 2:02 PM EDT Ewelina Mai RN Trouble concentrating on things, such as reading the newspaper or watching television More than half the days 12/15/2024 2:02 PM EDT Ewelina Mai RN Moving or speaking so [...] Wish to be (Past 1 Month) Yes 025 1:58 PM EDT Ewelina Mai RN 2. Non-Specific Active Suici ashley Thoughts (Past 1 Month) No 12/15/2024 1:58 PM EDT Leonela Mai RN 6. Suicidal Behavior (Lifetime) No 1:58 PM EDT Ewelina Mai RN documented as of this encounter Plan of Treatment Not on file documented as of this encounter Visit Diagnoses Not on filedocumented in this encounter Additional Health Concerns Assessment Noted Time PHQ-9 Depression Total Score: 20 025 2:02 PM EDT documented as of this encounter Care Teams Retail Marketing Specialist Relationship Specialty Start Date End Date Pcp, [place] [address] PCP - General Family Medicine 12/15/24 documented as of this encounter
--- OUTSIDE RECORDS SUMMARY | 2025-01-09 10:10 | XMS_ITS | Clinical Summary ---
Author Organization [facility] [place] [place] [address] Sql Programmer Name Role Phone Unavailable Primary Care Provider [...] of 2) 2021 COVID-19 Vaccine (1 - 2024-2 6 season) 2024 Influenza Vaccine (#1) 2024 Meningococcal B Vaccine Aged Out No l onger eligible based on patient's age to complete this topic
[2025-01-09 10:11] VITALS: BP 121/69; PULSE 68; RESP 13; TEMP 36.7; O2SAT 96; BMI 26.5
--- NOTE | 2025-01-09 11:22 | PC.NURSE ---
Pt is wanting to elope. notified that he is anxious and upset that he has not been seen by a provider. She is unable to see him at this time. pt ultimately decided to leave without being seen by the provider.
[2025-01-09 11:23] VITALS: BP 0/0; PULSE 0; RESP 0; TEMP -17.7; TEMP 0; O2SAT 0
== END 2025-01-09 11:24 | disposition left against medical advice (07) ==
LOC: ER 10:08
PROVIDERS: Emergency Provider Student in an Organized Health Care Education/Training Program; PCP Nurse Practitioner Family
DX: Z53.21 Procedure and treatment not carried out due to patient leaving prior to being seen by health care provider (principal)
CPT/HCPCS: 99211; 99282